=== PATIENT | male | born 1955 | race African-American/Black ===

== ENCOUNTER 2016-12-28 16:34 | Inpatient (IN) | payer MEDICARE, BC ==
[~2016-12-28] VITALS: Ht 180.3 cm; Wt 71.3 kg
[2016-12-28] MEDS ORDERED: ASPIRIN 325 MG TABLET PO ONE (17:15)
[2016-12-28 17:28] LABS: BASO % 1 % (0-3); EOS % 2 % (0-3); HEMATOCRIT 28.3 % (39.0-53.0); HEMOGLOBIN 9.2 g/dL (13.0-17.5); LYMPH # 0.4 x10^3/uL (1.0-4.8); LYMPH % 8 % (24-48); MEAN CORPUSCULAR HEMOGLOBIN 27 pg (25-35); MEAN CORPUSCULAR HGB CONC 33 g/dL (31-37); MEAN CORPUSCULAR VOLUME 83 fL (79-100); MONO % 7 % (0-9); NEUT % 83 % (31-73); PLATELET COUNT 115 x10^3/uL (140-400); RED BLOOD COUNT 3.42 x10^6/uL (4.30-5.70); RED CELL DISTRIBUTION WIDTH 14.8 % (11.5-14.5); WHITE BLOOD COUNT 4.6 x10^3/uL (4.0-11.0)
[2016-12-28] MEDS: NITROGLYCERIN SUBLINGUAL 0.4 MG BOTTLE OF 25. SL PRN ×3 (17:29→18:16)
--- NOTE | 2016-12-28 17:32 | RAD ---
Chest, 2 views, 12/28/2016: History: Chest pain Comparison is made to a study from 08/18/2016. The heart size is normal. There is calcific plaquing of the aorta. The pulmonary vascularity is normal. No pulmonary infiltrates are seen. There is no evidence of pleural fluid. IMPRESSION: 1. Aortic atherosclerosis. 2. No acute cardiopulmonary abnormality is detected.
[2016-12-28 17:34] LABS: CALCIUM 8.3 mg/dL (8.5-10.1); CREATININE 1.5 mg/dL (0.7-1.3); GFR 57.4; POTASSIUM 3.8 mmol/L (3.5-5.1)
[2016-12-28 17:35] LABS: MAGNESIUM 1.7 mg/dL (1.8-2.4)
--- NOTE | 2016-12-28 18:14 | PHYS DOC ---
Past Medical History Past Medical History: Diabetes-Type II, High Cholesterol, Hypertension Past Surgical History: No Surgical History Alcohol Use: None Drug Use: None Adult General Chief Complaint Chief Complaint: CHEST PAIN HPI HPI Patient is a 61 year old male who presents with few days of dry cough and bilateral lower extremity edema, followed by chest tightness with associated dyspnea starting this morning around 10 AM. His chest tightness is central, nonradiating, constant since onset. States he is taking lisinopril BID, but does not follow with a PCP. He or chills, nausea or vomiting, abdominal pain, diarrhea, palpitations, diaphoresis, lightheadedness, dizziness, back pain. Review of Systems Review of Systems Constitutional: Denies fever or chills [] Eyes: Denies change in visual acuity, redness, or eye pain [] HENT: Denies nasal congestion or sore throat [] Respiratory: Has cough and shortness of breath [] Cardiovascular: No additional information not addressed in HPI [] GI: Denies abdominal pain, nausea, vomiting, bloody stools or diarrhea [] : Denies dysuria or hematuria [] Musculoskeletal: Denies back pain or joint pain [] Integument: Denies rash or skin lesions [] Neurologic: Denies headache, focal weakness or sensory changes [] Endocrine: Denies polyuria or polydipsia [] Current Medications Current Medications Current Medications Medications (Trade) Dose Ordered Sig/Jerson Start Time Stop Time Status Last Admin Dose Admin Acetaminophen (Tylenol) 500 mg 1X ONCE 12/28/16 18:15 12/28/16 18:16 DC 12/28/16 18:15 500 MG Aspirin (Fauzia Aspirin) 325 mg 1X ONCE 12/28/16 17:15 12/28/16 17:16 DC 12/28/16 17:28 325 MG Nitroglycerin (Nitrostat) 0.4 mg PRN Q5MIN PRN 12/28/16 17:15 12/29/16 17:14 12/28/16 18:16 0.4 MG Allergies Allergies Allergies Coded Allergies Type Severity Reaction Last Updated Verified No Known Drug Allergies 01/01/16 No Physical Exam Physical Exam Constitutional: Well developed, well nourished, no acute distress, non-toxic appearance. [] HENT: Normocephalic, atraumatic, bilateral external ears normal, oropharynx moist, nose normal. [] Eyes: PERRLA, EOMI. [] Neck: Normal range of motion, supple. [] Cardiovascular:Heart rate regular rhythm [] Lungs & Thorax: Bilateral breath sounds clear to auscultation [] Abdomen: Bowel sounds normal, soft, no tenderness. [] Skin: Warm, dry, no erythema, no rash. [] Back: No tenderness, no CVA tenderness. [] Extremities: No tenderness, ROM intact, bilateral 1+ LE edema. [] Neurologic: Alert and oriented X 3, normal motor function, normal sensory function, no focal deficits noted. [] Psychologic: Affect normal, judgement normal, mood normal. [] Current Patient Data Vital Signs Vital Signs Date Time Temp Pulse Resp B/P Pulse Ox O2 Delivery O2 Flow Rate FiO2 12/28/16 18:16 96 187/93 12/28/16 16:55 98.8 30 99 Room Air 98.8 Lab Values Laboratory Tests Test 12/28/16 16:45 White Blood Count 4.6x10^3/uL (4.0-11.0) Red Blood Count 3.42x10^6/uL (4.30-5.70) L Hemoglobin 9.2g/dL (13.0-17.5) L Hematocrit 28.3% (39.0-53.0) L Mean Corpuscular Volume 83fL (79-100) Mean Corpuscular Hemoglobin 27pg (25-35) Mean Corpuscular Hemoglobin Concent 33g/dL (31-37) Red Cell Distribution Width 14.8% (11.5-14.5) H Platelet Count 115x10^3/uL (140-400) L Neutrophils (%) (Auto) 83% (31-73) H Lymphocytes (%) (Auto) 8% (24-48) L Monocytes (%) (Auto) 7% (0-9) Eosinophils (%) (Auto) 2% (0-3) Basophils (%) (Auto) 1% (0-3) Neutrophils # (Auto) 3.8x10^3uL (1.8-7.7) Lymphocytes # (Auto) 0.4x10^3/uL (1.0-4.8) L Monocytes # (Auto) 0.3x10^3/uL (0.0-1.1) Eosinophils # (Auto) 0.1x10^3/uL (0.0-0.7) Basophils # (Auto) 0.0x10^3/uL (0.0-0.2) Sodium Level 142mmol/L (136-145) Potassium Level 3.8mmol/L (3.5-5.1) Chloride Level 109mmol/L (98-107) H Carbon Dioxide Level 28mmol/L (21-32) Anion Gap 5 (6-14) L Blood Urea Nitrogen 16mg/dL (8-26) Creatinine 1.5mg/dL (0.7-1.3) H Estimated GFR (Cockcroft-Gault) 57.4 Glucose Level 326mg/dL (70-99) H Calcium Level 8.3mg/dL (8.5-10.1) L Magnesium Level 1.7mg/dL (1.8-2.4) L Troponin I Quantitative < 0.017ng/mL (0.000-0.055) OP-Iis-E-Type Natriuretic Peptide 2197pg/mL (0-124) H Laboratory Tests 12/28/16 16:45 Laboratory Tests 12/28/16 16:45 EKG EKG EKG as interpreted by me as normal sinus rhythm, rate 92, no ST-T changes, normal intervals, no ectopy Radiology/Procedures Radiology/Procedures Chest xray as interpreted by me with no acute cardiopulmonary disease process Course & Med Decision Making Course & Med Decision Making Pertinent Labs and Imaging studies reviewed. (See chart for details) History, exam, and workup concerning for congestive heart failure. This is a new diagnosis for him. We will admit for further workup and comorbidity control. Blood pressure is improved with medications here. Discussed case with Dr. Maria, who will admit. Cardiology consultation placed. [place] Disclaimer Dragon Disclaimer This electronic medical record was generated, in whole or in part, using a voice recognition dictation system. Departure Departure Impression: Primary Impression: Acute exacerbation of congestive heart failure Additional Impression: Uncontrolled hypertension Disposition: ADMITTED INPATIENT Condition: STABLE Referrals: NO PCP (PCP) Problem Qualifiers Primary Impression: Acute exacerbation of congestive heart failure Congestive heart failure type: unspecified congestive heart failure type Qualified Code: I50.9 - Heart failure, unspecified Laurita STATON MD Dec 28, 2016 18:14
[2016-12-28] MEDS ORDERED: ACETAMINOPHEN 500 MG TABLET PO ONE (18:15)
--- NOTE | 2016-12-28 18:56 | ACF ---
Admission Forms Criteria HEART FAILURE: COMMON COMPLICATIONS Clinical Indications for Inpatient Care (Place 'X' for any and all applicable criteria): Ongoing inpatient care may be indicated for heart failure with ANY ONE of the following (1)(2)(3)(4)(5): [ ]I. Ongoing need for care for primary condition requiring frequent therapy adjustments because of changes in cardiac function (eg, drug dosage changes for drugs that are renally metabolized) [ ]II. New-onset heart failure [ ]III. Heart failure with decreased urine output not responsive to attempts to optimize volume status [ ]IV. Acute cardiac ischemia causing or associated with failure [X]V. Complications of heart failure, including ANY ONE of the following: [ ]a) Pericardial effusion [ ]b) Symptomatic pleural effusion [ ]c) O2 saturation <90% or PO2 < 60 mm Hg (8.0 kPa) on room air or require baseline supplemental O2 [ ]d) Tachypnea [X]e) Dyspnea [ ]f) Syncope [ ]g) Change in mental status [ ]h) Acute renal insufficiency that is severe (reduction of more than 50% in estimated glomerular filtration rate from baseline) or progressive reduction of more than 25% in estimated glomerular filtration rate from baseline, with creatinine continuing to rise) [ ]i) Hemodynamic instability [ ]j) Anasarca [ ]k) Clinically significant metabolic abnormalities due to heart failure (eg, new-onset metabolic acidosis) Extended stay beyond goal length of stay for primary condition may be needed until ALL of the following are present(1)(3): [ ]a) Stable and effective diuretic regimen established (or patient on stable dialysis regimen if in chronic renal failure) [ ]b) Breathing comfortably at rest [ ]c) Saturation of arterial oxygen greater than 90% or at acceptable baseline [ ]d) Pulmonary edema absent or improved [ ]e) Hemodynamic stability [ ]f) Volume status acceptable on oral medication [ ]g) Peripheral or sacral edema absent or improved [ ]h) Renal function stable and manageable at a lower level of care [ ]i) Complications (eg, pleural effusion) resolved or manageable at a lower level of care [ ]j) Patient or caregiver has received written discharge instructions or educational material addressing activity level, diet, discharge medications, follow-up appointment, weight monitoring, and what to do if symptoms worsen The original [employer] content created by [employer] has been revised. The portions of the content which have been revised are identified through the use of italic text or in bold, and [facility] has neither reviewed nor approved the modified material.All other unmodified content is copyright [facility]. Please see references footnoted in the original [facility] edition 2016 Admission Criteria Met?: Yes ULISES GIBBONS Dec 28, 2016 18:56
[2016-12-28] MEDS ORDERED: METF500T4 PO (19:37)
[2016-12-28] MEDS ORDERED: LISI10TA2 PO (19:37)
[2016-12-28 20:20] VITALS: BP 173/83
[2016-12-28] MEDS ORDERED: MAGNESIUM SULFATE 2GM 50 ML IV ONE (20:30)
[2016-12-28] MEDS ORDERED: LISINOPRIL 10 MG TABLET PO ONE (20:30)
[2016-12-28] MEDS ORDERED: DEXTROSE 50% 25 GM / 50ML DISP.SYRIN. IV PRN (20:30)
[2016-12-28 21:17] LABS: OBC FLU VALID
[2016-12-28] MEDS ORDERED: MORPHINE SULFATE 2 MG/ML DISP.SYRIN. IV PRN ×2 (21:45→22:00)
--- NOTE | 2016-12-28 22:50 | HP ---
ADMIT DATE: 12/28/2016 CHIEF COMPLAINT: Chest pressure. HISTORY OF PRESENT ILLNESS: The patient is a 61-year-old -[place] gentleman who has not seen a physician in several years, who presented to the Emergency Room with chest pressure at the lower end of his sternum. He states this started at about 3:30 today, has not let up yet. It feels like direct pressure at 10/10. The nitroglycerin he received in the Emergency Room seemed to help a little bit. He has not received any morphine or other pain medications and rates it currently at a 7/10. He denies any shortness of breath, diaphoresis or other symptoms accompanying the pressure. He denies any fevers, chills, nausea, vomiting or abdominal pain. In the Emergency Room, initial troponins were negative; however, BNP was significantly elevated with mild swelling in his legs, which apparently has been going on for quite a while. He was diagnosed with new-onset CHF and admitted to the cardiac care unit. PAST MEDICAL HISTORY: Hypertension, hypercholesterolemia, diabetes, sickle cell trait FAMILY HISTORY: Unknown to patient. His mother when he was 7, but he is number 13 of a total of 18 children. SOCIAL HISTORY: He is , living with his , retired from , quit smoking and drinking 35 years ago. No ongoing toxic habits. ALLERGIES: No known drug allergies. MEDICATIONS: MAR reconciled with home medications. REVIEW OF SYSTEMS: Positive as per HPI. All other organ systems were evaluated and found negative. PHYSICAL EXAMINATION: VITAL SIGNS: From today, show a blood pressure of 173/83, heart rate of 90, respiratory rate at 18, temperature at 100.4. GENERAL: This is a well-nourished, well developed 61-year-old -[place] gentleman, alert and oriented, in no acute distress, very pleasant. HEENT: Shows no scleral icterus. NECK: Supple, without any lymphadenopathy. LUNGS: Clear to auscultation bilaterally. CARDIOVASCULAR: Heart is regular rate and rhythm without any murmurs. ABDOMEN: Has positive bowel sounds, soft, nontender. No organomegaly or masses appreciated. EXTREMITIES: Show no edema, no clubbing, no cyanosis. SKIN: Warm, soft and dry without any rash. LABORATORY DATA: CBC with a WBC of 4.6, hemoglobin 9.2, MCV of 83, platelets of 115. Chemistries with a BUN and creatinine of 16 and 1.5. Electrolytes essentially within normal limits. Glucose at 326, calcium 8.3, magnesium at 1.7. Initial troponin negative. Pro-BNP 2197. H. flu serologies are negative. RADIOGRAPHIC IMAGING: Chest x-ray in the Emergency Room shows aortic atherosclerosis, no acute cardiopulmonary abnormality is detected. ASSESSMENT AND PLAN: The patient is a 61-year-old -[place] gentleman presenting with chest pressure, elevated BNP and mild lower extremity edema, suspicious for congestive heart failure. He will be ruled out for acute coronary syndrome. We will obtain echocardiogram and cardiac service consult for further evaluation. The patient does have significant hypertension for which he has been on lisinopril at home. This will be continued, clearly will need increase in dose. We will add hydralazine p.r.n. IV for now. Diabetes is unfortunately very poorly controlled as well. He is only on metformin at home. We will hold this medication for the time being in anticipation of further evaluations. Add insulin sliding scale. Consider switching to insulin for the next month or so. He is scheduled to meet his first PCP in several years, early next month. We will also add a hemoglobin A1c for evaluation of his glucose control. For further cardiac risk factor evaluation, we will obtain a lipid profile as well. Consider starting statin depending on results. The patient has a normocytic anemia, which is moderate, more than typical for sickle cell trait. Will evaluate with anemia profile to rule out vitamin deficiency. This may be chronic inflammation, potentially due to congestive heart failure. However, the patient is also thrombocytopenic. We will monitor for now. If persistent and no abnormalities found on anemia profile, we will obtain a Hematology consult. IFEANYI HOLLAND MD DR: ELAYNE/nts JOB#: [id number] / [id number] KAREN
[2016-12-28 23:10] VITALS: BP 186/95
[2016-12-28] MEDS: INSULIN ASPART 300 UNITS/3 ML INSULN.PEN SQ SCH (23:37)
[2016-12-29] VITALS (10 sets, daily range): BP systolic 146–195; BP diastolic 67–96
[2016-12-29 03:48] LABS: BASO % 0 % (0-3); EOS % 1 % (0-3); HEMATOCRIT 24.4 % (39.0-53.0); HEMOGLOBIN 7.9 g/dL (13.0-17.5); LYMPH # 0.3 x10^3/uL (1.0-4.8); LYMPH % 8 % (24-48); MEAN CORPUSCULAR HEMOGLOBIN 27 pg (25-35); MEAN CORPUSCULAR HGB CONC 32 g/dL (31-37); MEAN CORPUSCULAR VOLUME 83 fL (79-100); MONO % 9 % (0-9); NEUT % 82 % (31-73); PLATELET COUNT 101 x10^3/uL (140-400); RED BLOOD COUNT 2.93 x10^6/uL (4.30-5.70); RED CELL DISTRIBUTION WIDTH 14.6 % (11.5-14.5); WHITE BLOOD COUNT 3.4 x10^3/uL (4.0-11.0)
[2016-12-29] MEDS: hydrALAZINE 20 MG/ML VIAL. IVP PRN ×2 (03:54→20:31)
[2016-12-29 04:07] LABS: % SAT IRON 12 % (15-34); IRON,SERUM 16 ug/dL (65-175); RETIC COUNT 0.5 % (0.5-2.5)
[2016-12-29 04:20] LABS: ALBUMIN 2.2 g/dL (3.4-5.0); ALBUMIN/GLOBULIN RATIO 0.9 (1.0-1.7); CALCIUM 7.9 mg/dL (8.5-10.1); CREATININE 1.6 mg/dL (0.7-1.3); GFR 53.3; MAGNESIUM 2.4 mg/dL (1.8-2.4); POTASSIUM 3.9 mmol/L (3.5-5.1); TOTAL BILIRUBIN 0.3 mg/dL (0.2-1.0); TOTAL PROTEIN 4.7 g/dL (6.4-8.2)
[2016-12-29 04:34] LABS: CHOLESTEROL/HDL RATIO 2.2
[2016-12-29] MEDS ORDERED: PNEUMOCOCCAL VAX SCREEN BY RX. MC PRN (04:45)
[2016-12-29] MEDS ORDERED: INFLUENZA VAX SCREEN BY RX. MC PRN (04:45)
--- NOTE | 2016-12-29 06:33 | EKG ---
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
[2016-12-29] MEDS ORDERED: INSULIN ASPART 300 UNITS/3 ML INSULN.PEN SQ SCH (08:00)
[2016-12-29 08:30] LABS: FOLATE 4.75 ng/ml (3.2-20.0)
[2016-12-29] MEDS ORDERED: LISINOPRIL 10 MG TABLET PO SCH (09:00)
[2016-12-29] MEDS ORDERED: PNEUMOC CONJ VACC 23-VALENT 0.5 ML VIAL. VAX IM ONE (09:00)
[2016-12-29] MEDS ORDERED: FLU VACC QUAD 2016-17 (36MOS+)/PF 0.5 ML SYRINGE. VAX IM ONE (09:00)
--- NOTE | 2016-12-29 09:14 | PDOC2 ---
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 Maria SOURCE Source: Chart review, Patient HISTORY OF PRESENT ILLNESS HISTORY OF PRESENT ILLNESS This is a 61 yo male who presented with multiple complaints including chest tightness, cough, fatigue, and chills. Patient reports pain began yesterday morning upon awakening. Located in his central chest. Describes as pressure. Radiated to his left arm. Pain lasted a couple of hours and resolved without intervention. History of diabetes and hypertension. Is non-complaint with insulin and antiHTN therapy. Checks BS every couple of days. BP significantly elevated upon admission. Takes lisinopril 4-5 days out of the week. Denies any CKD but follow with Dr. Koo on an outpatient basis. PAST MEDICAL HISTORY Cardiovascular: HTN, Hyperlipidemia Pulmonary: No pertinent hx CENTRAL NERVOUS SYSTEM: Other (no pertinent hx) GI: No pertinent hx Heme/Onc: Anemia NOS Hepatobiliary: No pertinent hx Psych: No pertinent hx Musculoskeletal: Other (no pertinent hx) Rheumatologic: No pertinent hx Infectious disease: No pertinent hx ENT: No pertinent hx Renal/: Chronic renal insuff Endocrine: Diabetes Dermatology: No pertinent hx PAST SURGICAL HISTORY Past Surgical History: No pertinent history FAMILY HISTORY Family History: Family History Unknown SOCIAL HISTORY Lives: with Family CURRENT MEDICATIONS CURRENT MEDICATIONS Current Medications Medications (Trade) Dose Ordered Sig/Jerson Route PRN Reason Start Time Stop Time Status Last Admin Dose Admin Aspirin (Fauzia Aspirin) 325 mg 1X ONCE PO 12/28/16 17:15 12/28/16 17:16 DC 12/28/16 17:28 Nitroglycerin (Nitrostat) 0.4 mg PRN Q5MIN PRN SL CP RATING > 1/10 12/28/16 17:15 12/29/16 17:14 12/28/16 18:16 Acetaminophen 500 mg 500 mg 1X ONCE PO 12/28/16 18:15 12/28/16 18:16 DC 12/28/16 18:15 Magnesium Sulfate/ Dextrose (Magnesium Sulfate PREMIX 2GM) 50 ml @ 25 mls/hr 1X ONCE IV 12/28/16 20:30 12/28/16 22:29 DC 3/29/17 23:12 Lisinopril (Prinivil) 10 mg 1X ONCE PO 12/28/16 20:30 12/28/16 20:33 DC 12/28/16 22:38 Morphine Sulfate 1 mg PRN Q2HR PRN IV MODERATE PAIN 12/28/16 21:45 12/28/16 22:38 Hydralazine HCl (Apresoline) 10 mg PRN Q4HRS PRN IVP ELEVATED BP, SEE COMMENTS 12/28/16 22:00 12/29/16 03:54 Insulin Aspart (Novolog) 0-5 UNITS TIDWMEALS SQ 12/28/16 23:30 12/28/16 23:37 ALLERGIES ALLERGIES: Coded Allergies: No Known Drug Allergies (Unverified , 01/01/16) ROS Review of System 14 point ROS conducted with pertinent positives noted above in HPI. PHYSICAL EXAM General: Alert, Oriented X3, Cooperative, No acute distress HEENT: Atraumatic, Mucous membr. moist/pink Lungs: Clear to auscultation, Normal air movement Heart: Regular rate, Normal S1, Normal S2, Other (tele ST rate 102) Abdomen: Soft, No tenderness Extremities: No edema, Normal pulses Skin: No significant lesion Neuro: Normal speech, Sensation intact Psych/Mental Status: Mental status NL, Mood NL, Other (flat affect ) VITALS VITALS Vital Signs Date Time Temp Pulse Resp B/P Pulse Ox O2 Delivery O2 Flow Rate FiO2 12/29/16 07:00 100.2 104 18 164/79 92 Room Air 100.2 LABS Lab: Laboratory Tests Test 12/28/16 16:45 12/28/16 20:30 12/29/16 03:18 12/29/16 08:39 White Blood Count 4.6x10^3/uL (4.0-11.0) 3.4x10^3/uL (4.0-11.0) Red Blood Count 3.42x10^6/uL (4.30-5.70) 2.93x10^6/uL (4.30-5.70) Hemoglobin 9.2g/dL (13.0-17.5) 7.9g/dL (13.0-17.5) Hematocrit 28.3% (39.0-53.0) 24.4% (39.0-53.0) Mean Corpuscular Volume 83fL (79-100) 83fL (79-100) Mean Corpuscular Hemoglobin 27pg (25-35) 27pg (25-35) Mean Corpuscular Hemoglobin Concent 33g/dL (31-37) 32g/dL (31-37) Red Cell Distribution Width 14.8% (11.5-14.5) 14.6% (11.5-14.5) Platelet Count 115x10^3/uL (140-400) 101x10^3/uL (140-400) Neutrophils (%) (Auto) 83% (31-73) 82% (31-73) Lymphocytes (%) (Auto) 8% (24-48) 8% (24-48) Monocytes (%) (Auto) 7% (0-9) 9% (0-9) Eosinophils (%) (Auto) 2% (0-3) 1% (0-3) Basophils (%) (Auto) 1% (0-3) 0% (0-3) Neutrophils # (Auto) 3.8x10^3uL (1.8-7.7) 2.8x10^3uL (1.8-7.7) Lymphocytes # (Auto) 0.4x10^3/uL (1.0-4.8) 0.3x10^3/uL (1.0-4.8) Monocytes # (Auto) 0.3x10^3/uL (0.0-1.1) 0.3x10^3/uL (0.0-1.1) Eosinophils # (Auto) 0.1x10^3/uL (0.0-0.7) 0.0x10^3/uL (0.0-0.7) Basophils # (Auto) 0.0x10^3/uL (0.0-0.2) 0.0x10^3/uL (0.0-0.2) Sodium Level 142mmol/L (136-145) 148mmol/L (136-145) Potassium Level 3.8mmol/L (3.5-5.1) 3.9mmol/L (3.5-5.1) Chloride Level 109mmol/L (98-107) 113mmol/L (98-107) Carbon Dioxide Level 28mmol/L (21-32) 29mmol/L (21-32) Anion Gap 5 (6-14) 6 (6-14) Blood Urea Nitrogen 16mg/dL (8-26) 18mg/dL (8-26) Creatinine 1.5mg/dL (0.7-1.3) 1.6mg/dL (0.7-1.3) Estimated GFR (Cockcroft-Gault) 57.4 53.3 Glucose Level 326mg/dL (70-99) 242mg/dL (70-99) Calcium Level 8.3mg/dL (8.5-10.1) 7.9mg/dL (8.5-10.1) Magnesium Level 1.7mg/dL (1.8-2.4) 2.4mg/dL (1.8-2.4) Troponin I Quantitative < 0.017ng/mL (0.000-0.055) 0.019ng/mL (0.000-0.055) GN-Vfx-V-Type Natriuretic Peptide 2197pg/mL (0-124) Influenza Type A Antigen Negative (NEGATIVE) Influenza Type B Antigen Negative (NEGATIVE) Reticulocyte Count (auto) 0.5% (0.5-2.5) BUN/Creatinine Ratio 11 (6-20) Iron Level 16ug/dL (65-175) Total Iron Binding Capacity 134ug/dL (250-450) Iron Saturation 12% (15-34) Ferritin 182ng/mL (26-388) Total Bilirubin 0.3mg/dL (0.2-1.0) Aspartate Amino Transf (AST/SGOT) 21U/L (15-37) Alanine Aminotransferase (ALT/SGPT) 25U/L (16-63) Alkaline Phosphatase 91U/L (46-116) Total Protein 4.7g/dL (6.4-8.2) Albumin 2.2g/dL (3.4-5.0) Albumin/Globulin Ratio 0.9 (1.0-1.7) Triglycerides Level 87mg/dL (0-150) Cholesterol Level 159mg/dL (0-200) LDL Cholesterol, Calculated 70mg/dL (0-100) VLDL Cholesterol, Calculated 17mg/dL (0-40) HDL Cholesterol 72mg/dL (40-60) Cholesterol/HDL Ratio 2.2 Vitamin B12 Level 420pg/mL (247-911) Serum Folate 4.75ng/ml (3.2-20.0) Thyroid Stimulating Hormone (TSH) 0.409uIU/mL (0.358-3.74) Glucose (Fingerstick) 296mg/dL (70-99) ASSESSMENT/PLAN ASSESSMENT/PLAN 1. Mild acute probable diastolic HF 2. Chest pain/pressure 3. Malignant hypertension 4. Hyperlipidemia 6. Diabetes, II 7. CKD 8. Anemia 9. Fevers 10. Noncompliance Recommendations Check echo to assess LV function and r/o presence of WMA Chest pressure likely secondary to malignant HTN; maintain BP control AMI ruled out- given risk factors, consider outpatient stress test No diuresis warranted at this time. Discussed importance of medication adherence and overall compliance Management of CKD per nephrology. Further workup of fevers and anemia per PCP Problems: TAQUERIA CONWAY MD 12/30/16 0730: CARDIAC CONSULT ALLERGIES ALLERGIES: Coded Allergies: No Known Drug Allergies (Unverified , 01/01/16) ASSESSMENT/PLAN ASSESSMENT/PLAN Late entry for 12/29/2016 Pt. seen and examined. 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 61 y.o male presenting with malignant HTN Normal cardiac exam echo with LVH, otherwise ok Will follow. BP mgmt. Problems: NANDA TREVINO APRN Dec 29, 2016 09:14 TAQUERIA CONWAY MD Dec 30, 2016 07:30
[2016-12-29] MEDS: ASPIRIN ENTERIC COATED 81 MG TABLET.DR. PO SCH (09:55)
[2016-12-29] MEDS: INSULIN ASPART 300 UNITS/3 ML INSULN.PEN SQ SCH ×3 (10:01→17:00)
--- NOTE | 2016-12-29 10:31 | PDOC ---
PROGRESS NOTES Chief Complaint Chief Complaint Chest pain New onset CHF DOMINIQUE vs CRI HTN Diabetes, non-controlled Chronic Anemia Hypercholesterolemia History of Present Illness History of Present Illness No acute events overnight. Patient is seen following his echo. He reports that he is feeling slightly better. Vitals Vitals Vital Signs Date Time Temp Pulse Resp B/P Pulse Ox O2 Delivery O2 Flow Rate FiO2 12/29/16 09:55 104 164/79 12/29/16 07:00 100.2 18 92 Room Air 100.2 Physical Exam General: Alert, Oriented X3, Cooperative, No acute distress Heart: Regular rate, No murmurs Lungs: Clear, Other (no wheezing) Abdomen: Soft, No tenderness Extremities: No cyanosis, Other (bl LE edema ) Skin: No rashes, No significant lesion Labs LABS Laboratory Tests Test 12/28/16 16:45 12/28/16 20:30 12/29/16 03:18 12/29/16 08:39 White Blood Count 4.6x10^3/uL (4.0-11.0) 3.4x10^3/uL (4.0-11.0) Red Blood Count 3.42x10^6/uL (4.30-5.70) 2.93x10^6/uL (4.30-5.70) Hemoglobin 9.2g/dL (13.0-17.5) 7.9g/dL (13.0-17.5) Hematocrit 28.3% (39.0-53.0) 24.4% (39.0-53.0) Mean Corpuscular Volume 83fL (79-100) 83fL (79-100) Mean Corpuscular Hemoglobin 27pg (25-35) 27pg (25-35) Mean Corpuscular Hemoglobin Concent 33g/dL (31-37) 32g/dL (31-37) Red Cell Distribution Width 14.8% (11.5-14.5) 14.6% (11.5-14.5) Platelet Count 115x10^3/uL (140-400) 101x10^3/uL (140-400) Neutrophils (%) (Auto) 83% (31-73) 82% (31-73) Lymphocytes (%) (Auto) 8% (24-48) 8% (24-48) Monocytes (%) (Auto) 7% (0-9) 9% (0-9) Eosinophils (%) (Auto) 2% (0-3) 1% (0-3) Basophils (%) (Auto) 1% (0-3) 0% (0-3) Neutrophils # (Auto) 3.8x10^3uL (1.8-7.7) 2.8x10^3uL (1.8-7.7) Lymphocytes # (Auto) 0.4x10^3/uL (1.0-4.8) 0.3x10^3/uL (1.0-4.8) Monocytes # (Auto) 0.3x10^3/uL (0.0-1.1) 0.3x10^3/uL (0.0-1.1) Eosinophils # (Auto) 0.1x10^3/uL (0.0-0.7) 0.0x10^3/uL (0.0-0.7) Basophils # (Auto) 0.0x10^3/uL (0.0-0.2) 0.0x10^3/uL (0.0-0.2) Sodium Level 142mmol/L (136-145) 148mmol/L (136-145) Potassium Level 3.8mmol/L (3.5-5.1) 3.9mmol/L (3.5-5.1) Chloride Level 109mmol/L (98-107) 113mmol/L (98-107) Carbon Dioxide Level 28mmol/L (21-32) 29mmol/L (21-32) Anion Gap 5 (6-14) 6 (6-14) Blood Urea Nitrogen 16mg/dL (8-26) 18mg/dL (8-26) Creatinine 1.5mg/dL (0.7-1.3) 1.6mg/dL (0.7-1.3) Estimated GFR (Cockcroft-Gault) 57.4 53.3 Glucose Level 326mg/dL (70-99) 242mg/dL (70-99) Calcium Level 8.3mg/dL (8.5-10.1) 7.9mg/dL (8.5-10.1) Magnesium Level 1.7mg/dL (1.8-2.4) 2.4mg/dL (1.8-2.4) Troponin I Quantitative < 0.017ng/mL (0.000-0.055) 0.019ng/mL (0.000-0.055) YE-Aoa-L-Type Natriuretic Peptide 2197pg/mL (0-124) Influenza Type A Antigen Negative (NEGATIVE) Influenza Type B Antigen Negative (NEGATIVE) Reticulocyte Count (auto) 0.5% (0.5-2.5) BUN/Creatinine Ratio 11 (6-20) Iron Level 16ug/dL (65-175) Total Iron Binding Capacity 134ug/dL (250-450) Iron Saturation 12% (15-34) Ferritin 182ng/mL (26-388) Total Bilirubin 0.3mg/dL (0.2-1.0) Aspartate Amino Transf (AST/SGOT) 21U/L (15-37) Alanine Aminotransferase (ALT/SGPT) 25U/L (16-63) Alkaline Phosphatase 91U/L (46-116) Total Protein 4.7g/dL (6.4-8.2) Albumin 2.2g/dL (3.4-5.0) Albumin/Globulin Ratio 0.9 (1.0-1.7) Triglycerides Level 87mg/dL (0-150) Cholesterol Level 159mg/dL (0-200) LDL Cholesterol, Calculated 70mg/dL (0-100) VLDL Cholesterol, Calculated 17mg/dL (0-40) HDL Cholesterol 72mg/dL (40-60) Cholesterol/HDL Ratio 2.2 Vitamin B12 Level 420pg/mL (247-911) Serum Folate 4.75ng/ml (3.2-20.0) Thyroid Stimulating Hormone (TSH) 0.409uIU/mL (0.358-3.74) Glucose (Fingerstick) 296mg/dL (70-99) Review of Systems Review of Systems Denies current chest pain and shortness of breath. Afebrile. Reports he is feeling better. Assessment and Plan Assessmemt and Plan Problems Medical Problems: (1) Acute exacerbation of congestive heart failure Status: Acute (2) Uncontrolled hypertension Status: Acute ASSESSMENT: Chest pain New onset CHF DOMINIQUE vs CRI HTN Diabetes, non-controlled Chronic Anemia Hypercholesterolemia PLAN: Renal was consulted for DOMINIQUE vs CRI, their recommendations are appreciated Cardiology is following, their recommendations are appreciated Cardiac workup in progress Trend troponins Monitor blood glucose Continue pain control Monitor daily labs PT/OT Problems: Comment Review of Relevant I have reviewed the following items griselda (where applicable) has been applied. Labs Laboratory Tests Test 12/28/16 16:45 12/28/16 20:30 12/29/16 03:18 12/29/16 08:39 White Blood Count 4.6x10^3/uL (4.0-11.0) 3.4x10^3/uL (4.0-11.0) Red Blood Count 3.42x10^6/uL (4.30-5.70) 2.93x10^6/uL (4.30-5.70) Hemoglobin 9.2g/dL (13.0-17.5) 7.9g/dL (13.0-17.5) Hematocrit 28.3% (39.0-53.0) 24.4% (39.0-53.0) Mean Corpuscular Volume 83fL (79-100) 83fL (79-100) Mean Corpuscular Hemoglobin 27pg (25-35) 27pg (25-35) Mean Corpuscular Hemoglobin Concent 33g/dL (31-37) 32g/dL (31-37) Red Cell Distribution Width 14.8% (11.5-14.5) 14.6% (11.5-14.5) Platelet Count 115x10^3/uL (140-400) 101x10^3/uL (140-400) Neutrophils (%) (Auto) 83% (31-73) 82% (31-73) Lymphocytes (%) (Auto) 8% (24-48) 8% (24-48) Monocytes (%) (Auto) 7% (0-9) 9% (0-9) Eosinophils (%) (Auto) 2% (0-3) 1% (0-3) Basophils (%) (Auto) 1% (0-3) 0% (0-3) Neutrophils # (Auto) 3.8x10^3uL (1.8-7.7) 2.8x10^3uL (1.8-7.7) Lymphocytes # (Auto) 0.4x10^3/uL (1.0-4.8) 0.3x10^3/uL (1.0-4.8) Monocytes # (Auto) 0.3x10^3/uL (0.0-1.1) 0.3x10^3/uL (0.0-1.1) Eosinophils # (Auto) 0.1x10^3/uL (0.0-0.7) 0.0x10^3/uL (0.0-0.7) Basophils # (Auto) 0.0x10^3/uL (0.0-0.2) 0.0x10^3/uL (0.0-0.2) Sodium Level 142mmol/L (136-145) 148mmol/L (136-145) Potassium Level 3.8mmol/L (3.5-5.1) 3.9mmol/L (3.5-5.1) Chloride Level 109mmol/L (98-107) 113mmol/L (98-107) Carbon Dioxide Level 28mmol/L (21-32) 29mmol/L (21-32) Anion Gap 5 (6-14) 6 (6-14) Blood Urea Nitrogen 16mg/dL (8-26) 18mg/dL (8-26) Creatinine 1.5mg/dL (0.7-1.3) 1.6mg/dL (0.7-1.3) Estimated GFR (Cockcroft-Gault) 57.4 53.3 Glucose Level 326mg/dL (70-99) 242mg/dL (70-99) Calcium Level 8.3mg/dL (8.5-10.1) 7.9mg/dL (8.5-10.1) Magnesium Level 1.7mg/dL (1.8-2.4) 2.4mg/dL (1.8-2.4) Troponin I Quantitative < 0.017ng/mL (0.000-0.055) 0.019ng/mL (0.000-0.055) US-Hjn-N-Type Natriuretic Peptide 2197pg/mL (0-124) Influenza Type A Antigen Negative (NEGATIVE) Influenza Type B Antigen Negative (NEGATIVE) Reticulocyte Count (auto) 0.5% (0.5-2.5) BUN/Creatinine Ratio 11 (6-20) Iron Level 16ug/dL (65-175) Total Iron Binding Capacity 134ug/dL (250-450) Iron Saturation 12% (15-34) Ferritin 182ng/mL (26-388) Total Bilirubin 0.3mg/dL (0.2-1.0) Aspartate Amino Transf (AST/SGOT) 21U/L (15-37) Alanine Aminotransferase (ALT/SGPT) 25U/L (16-63) Alkaline Phosphatase 91U/L (46-116) Total Protein 4.7g/dL (6.4-8.2) Albumin 2.2g/dL (3.4-5.0) Albumin/Globulin Ratio 0.9 (1.0-1.7) Triglycerides Level 87mg/dL (0-150) Cholesterol Level 159mg/dL (0-200) LDL Cholesterol, Calculated 70mg/dL (0-100) VLDL Cholesterol, Calculated 17mg/dL (0-40) HDL Cholesterol 72mg/dL (40-60) Cholesterol/HDL Ratio 2.2 Vitamin B12 Level 420pg/mL (247-911) Serum Folate 4.75ng/ml (3.2-20.0) Thyroid Stimulating Hormone (TSH) 0.409uIU/mL (0.358-3.74) Glucose (Fingerstick) 296mg/dL (70-99) Laboratory Tests Test 12/28/16 16:45 12/28/16 20:30 12/29/16 03:18 12/29/16 08:39 White Blood Count 4.6x10^3/uL (4.0-11.0) 3.4x10^3/uL (4.0-11.0) Red Blood Count 3.42x10^6/uL (4.30-5.70) 2.93x10^6/uL (4.30-5.70) Hemoglobin 9.2g/dL (13.0-17.5) 7.9g/dL (13.0-17.5) Hematocrit 28.3% (39.0-53.0) 24.4% (39.0-53.0) Mean Corpuscular Volume 83fL (79-100) 83fL (79-100) Mean Corpuscular Hemoglobin 27pg (25-35) 27pg (25-35) Mean Corpuscular Hemoglobin Concent 33g/dL (31-37) 32g/dL (31-37) Red Cell Distribution Width 14.8% (11.5-14.5) 14.6% (11.5-14.5) Platelet Count 115x10^3/uL (140-400) 101x10^3/uL (140-400) Neutrophils (%) (Auto) 83% (31-73) 82% (31-73) Lymphocytes (%) (Auto) 8% (24-48) 8% (24-48) Monocytes (%) (Auto) 7% (0-9) 9% (0-9) Eosinophils (%) (Auto) 2% (0-3) 1% (0-3) Basophils (%) (Auto) 1% (0-3) 0% (0-3) Neutrophils # (Auto) 3.8x10^3uL (1.8-7.7) 2.8x10^3uL (1.8-7.7) Lymphocytes # (Auto) 0.4x10^3/uL (1.0-4.8) 0.3x10^3/uL (1.0-4.8) Monocytes # (Auto) 0.3x10^3/uL (0.0-1.1) 0.3x10^3/uL (0.0-1.1) Eosinophils # (Auto) 0.1x10^3/uL (0.0-0.7) 0.0x10^3/uL (0.0-0.7) Basophils # (Auto) 0.0x10^3/uL (0.0-0.2) 0.0x10^3/uL (0.0-0.2) Sodium Level 142mmol/L (136-145) 148mmol/L (136-145) Potassium Level 3.8mmol/L (3.5-5.1) 3.9mmol/L (3.5-5.1) Chloride Level 109mmol/L (98-107) 113mmol/L (98-107) Carbon Dioxide Level 28mmol/L (21-32) 29mmol/L (21-32) Anion Gap 5 (6-14) 6 (6-14) Blood Urea Nitrogen 16mg/dL (8-26) 18mg/dL (8-26) Creatinine 1.5mg/dL (0.7-1.3) 1.6mg/dL (0.7-1.3) Estimated GFR (Cockcroft-Gault) 57.4 53.3 Glucose Level 326mg/dL (70-99) 242mg/dL (70-99) Calcium Level 8.3mg/dL (8.5-10.1) 7.9mg/dL (8.5-10.1) Magnesium Level 1.7mg/dL (1.8-2.4) 2.4mg/dL (1.8-2.4) Troponin I Quantitative < 0.017ng/mL (0.000-0.055) 0.019ng/mL (0.000-0.055) ND-Kdf-H-Type Natriuretic Peptide 2197pg/mL (0-124) Influenza Type A Antigen Negative (NEGATIVE) Influenza Type B Antigen Negative (NEGATIVE) Reticulocyte Count (auto) 0.5% (0.5-2.5) BUN/Creatinine Ratio 11 (6-20) Iron Level 16ug/dL (65-175) Total Iron Binding Capacity 134ug/dL (250-450) Iron Saturation 12% (15-34) Ferritin 182ng/mL (26-388) Total Bilirubin 0.3mg/dL (0.2-1.0) Aspartate Amino Transf (AST/SGOT) 21U/L (15-37) Alanine Aminotransferase (ALT/SGPT) 25U/L (16-63) Alkaline Phosphatase 91U/L (46-116) Total Protein 4.7g/dL (6.4-8.2) Albumin 2.2g/dL (3.4-5.0) Albumin/Globulin Ratio 0.9 (1.0-1.7) Triglycerides Level 87mg/dL (0-150) Cholesterol Level 159mg/dL (0-200) LDL Cholesterol, Calculated 70mg/dL (0-100) VLDL Cholesterol, Calculated 17mg/dL (0-40) HDL Cholesterol 72mg/dL (40-60) Cholesterol/HDL Ratio 2.2 Vitamin B12 Level 420pg/mL (247-911) Serum Folate 4.75ng/ml (3.2-20.0) Thyroid Stimulating Hormone (TSH) 0.409uIU/mL (0.358-3.74) Glucose (Fingerstick) 296mg/dL (70-99) Medications Current Medications Aspirin (Fauzia Aspirin) 325 mg 1X ONCE PO Last administered on 12/28/16 17:28 ; Start 12/28/16 at 17:15; Stop 12/28/16 at 17:16; Status DC Nitroglycerin (Nitrostat) 0.4 mg PRN Q5MIN PRN SL CP RATING > 1/10 Last administered on 12/28/16 18:16; Start 12/28/16 at 17:15; Stop 12/29/16 at 17:14 Acetaminophen 500 mg 500 mg 1X ONCE PO Last administered on 12/28/16 18:15; Start 12/28/16 at 18:15; Stop 12/28/16 at 18:16; Status DC Magnesium Sulfate/ Dextrose (Magnesium Sulfate PREMIX 2GM) 50 ml @ 25 mls/hr 1X ONCE IV Last administered on 12/28/16 23:12; Start 12/28/16 at 20:30; Stop 12/28/16 at 22:29; Status DC Insulin Aspart (Novolog) 0-5 UNITS TIDWMEALS SQ ; Start 12/29/16 at 08:00; Stop 12/29/16 at 08:00; Status DC Dextrose 12.5 gm PRN Q15MIN PRN IV SEE COMMENTS; Start 12/28/16 at 20:30 Lisinopril (Prinivil) 10 mg DAILY PO Last administered on 12/29/16 09:55; Start 12/29/16 at 09:00 Lisinopril (Prinivil) 10 mg 1X ONCE PO Last administered on 12/28/16 22:38; Start 12/28/16 at 20:30; Stop 12/28/16 at 20:33; Status DC Morphine Sulfate 1 mg PRN Q2HR PRN IV MODERATE PAIN Last administered on 22:38; Start 12/28/16 at 21:45 Acetaminophen (Tylenol) 500 mg PRN Q6HRS PRN PO MILD PAIN / TEMP; Start at 21:45 Aspirin (Ecotrin) 81 mg DAILYWBKFT PO Last administered on 12/29/16 09:55; Start 12/29/16 at 08:00 Morphine Sulfate 2 mg PRN Q2HR PRN IV SEVERE PAIN; Start 12/28/16 at 22:00 Hydralazine HCl (Apresoline) 10 mg PRN Q4HRS PRN IVP ELEVATED BP, SEE COMMENTS Last administered on 12/29/16 03:54; Start 12/28/16 at 22:00 Insulin Aspart (Novolog) 0-5 UNITS TIDWMEALS SQ Last administered on 12/29/16 10:01; Start 12/28/16 at 23:30 Info (Do NOT chart on this placeholder) 1 each PRN 1X PRN MC SEE COMMENTS; Start 12/29/16 at 04:45; Status UNV Pneumococcal Polyvalent Vaccine (Do NOT chart on this placeholder) 1 each PRN 1X PRN MC SEE COMMENTS; Start 12/29/16 at 04:45; Status UNV Influenza Virus Vaccine Quadrival (Fluarix Quad [id number] Syringe) 0.5 ml ONCE ONCE VAX IM ; Start 12/29/16 at 09:00; Stop 12/29/16 at 09:01; Status DC Pneumococcal Polyvalent Vaccine (Pneumovax 23) 0.5 ml ONCE ONCE VAX IM ; Start 12/29/16 at 09:00; Stop 12/29/16 at 09:01; Status DC Active Scripts Active Reported Lisinopril 10 Mg Tablet 10 Mg PO DAILY Metformin Hcl 500 Mg Tablet 1 Tab PO BID Vitals/I & O Vital Sign - Last 24 Hours 12/28/16 12/28/16 12/28/16 12/28/16 16:40 16:55 17:10 17:25 Temp 98.8 98.8 Pulse 92 92 Resp 14 30 19 B/P 226/106 226/106 204/97 207/101 Pulse Ox 99 99 O2 Delivery Room Air Room Air 12/28/16 12/28/16 12/28/16 12/28/16 17:26 17:29 17:43 17:56 Pulse 98 97 98 96 Resp 27 12 B/P 204/109 204/109 204/109 187/93 Pulse Ox 97 97 12/28/16 12/28/16 12/28/16 12/28/16 18:16 18:26 20:20 22:38 Temp 100.4 100.4 Pulse 96 100 90 90 Resp 16 18 B/P 187/93 178/82 173/83 173/83 Pulse Ox 97 99 O2 Delivery Room Air 12/28/16 12/28/16 12/28/16 12/29/16 22:38 23:10 23:10 02:50 Temp 98.5 98.5 Pulse 90 Resp 18 16 14 B/P 186/95 Pulse Ox 99 97 95 O2 Delivery Room Air Room Air Room Air 12/29/16 12/29/16 12/29/16 12/29/16 03:10 03:54 05:10 07:00 Temp 98.8 100.2 98.8 100.2 Pulse 90 90 100 104 Resp 14 18 B/P 172/77 172/77 156/67 164/79 Pulse Ox 96 92 O2 Delivery Room Air Room Air Room Air 12/29/16 09:55 Pulse 104 B/P 164/79 Intake and Output 12/28/16 12/28/16 12/29/16 15:00 23:00 07:00 Intake Total 240 ml 50 ml Output Total 0 ml Balance 240 ml 50 ml APPLENIAL K III DO Dec 29, 2016 10:31
[2016-12-29] MEDS: ACETAMINOPHEN 500 MG TABLET PO PRN ×2 (10:59→23:11)
--- NOTE | 2016-12-29 11:18 | PDOC2 ---
CONSULT Date of Consult Date of Consult DATE: 12/29/16 TIME: 11:12 Reason for Consult Reason for Consult: RENAL FAILURE Referring Physician Referring Physician: FREDDY Identification/Chief Complaint Chief Complaint CHEST PAIN Source Source: Chart review, Patient History of Present Illness Reason for Visit: THIS IS A 61 YR OLD ADMITTED WITH CHEST PAIN AND SOB. HIS BNP LEVEL IS HIGH BUT ON EXAM AND ON CXRAY THERE IS NO EVIDENCE OF HYPERVOLEMIA. CR IS 1.5-1.6. LAST YEAR CR WAS ABOUT 1.3. HE HAS A HX OF HTN AND DM II AND HAS BEEN NON COMPLIANT Past Medical History Cardiovascular: HTN, Hyperlipidemia Heme/Onc: Anemia NOS Renal/: Chronic renal insuff Endocrine: Diabetes Current Problem List Problem List Problems Medical Problems: (1) Acute exacerbation of congestive heart failure Status: Acute (2) Uncontrolled hypertension Status: Acute Current Medications Current Medications Current Medications Aspirin (Fauzia Aspirin) 325 mg 1X ONCE PO Last administered on 12/28/16 17:28 ; Start 12/28/16 at 17:15; Stop 12/28/16 at 17:16; Status DC Nitroglycerin (Nitrostat) 0.4 mg PRN Q5MIN PRN SL CP RATING > 1/10 Last administered on 12/28/16 18:16; Start 12/28/16 at 17:15; Stop 12/29/16 at 17:14 Acetaminophen 500 mg 500 mg 1X ONCE PO Last administered on 12/28/16 18:15; Start 12/28/16 at 18:15; Stop 12/28/16 at 18:16; Status DC Magnesium Sulfate/ Dextrose (Magnesium Sulfate PREMIX 2GM) 50 ml @ 25 mls/hr 1X ONCE IV Last administered on 12/28/16 23:12; Start 12/28/16 at 20:30; Stop 12/28/16 at 22:29; Status DC Insulin Aspart (Novolog) 0-5 UNITS TIDWMEALS SQ ; Start 12/29/16 at 08:00; Stop 12/29/16 at 08:00; Status DC Dextrose 12.5 gm PRN Q15MIN PRN IV SEE COMMENTS; Start 12/28/16 at 20:30 Lisinopril (Prinivil) 10 mg DAILY PO Last administered on 12/29/16 09:55; Start 12/29/16 at 09:00 Lisinopril (Prinivil) 10 mg 1X ONCE PO Last administered on 12/28/16 22:38; Start 12/28/16 at 20:30; Stop 12/28/16 at 20:33; Status DC Morphine Sulfate 1 mg PRN Q2HR PRN IV MODERATE PAIN Last administered on 22:38; Start 12/28/16 at 21:45 Acetaminophen (Tylenol) 500 mg PRN Q6HRS PRN PO MILD PAIN / TEMP Last administered on 12/29/16 10:59; Start 12/28/16 at 21:45 Aspirin (Ecotrin) 81 mg DAILYWBKFT PO Last administered on 12/29/16 09:55; Start 12/29/16 at 08:00 Morphine Sulfate 2 mg PRN Q2HR PRN IV SEVERE PAIN; Start 12/28/16 at 22:00 Hydralazine HCl (Apresoline) 10 mg PRN Q4HRS PRN IVP ELEVATED BP, SEE COMMENTS Last administered on 12/29/16 03:54; Start 12/28/16 at 22:00 Insulin Aspart (Novolog) 0-5 UNITS TIDWMEALS SQ Last administered on 12/29/16 10:01; Start 12/28/16 at 23:30 Info (Do NOT chart on this placeholder) 1 each PRN 1X PRN MC SEE COMMENTS; Start 12/29/16 at 04:45; Status UNV Pneumococcal Polyvalent Vaccine (Do NOT chart on this placeholder) 1 each PRN 1X PRN MC SEE COMMENTS; Start 12/29/16 at 04:45; Status UNV Influenza Virus Vaccine Quadrival (Fluarix Quad [id number] Syringe) 0.5 ml ONCE ONCE VAX IM ; Start 12/29/16 at 09:00; Stop 12/29/16 at 09:01; Status DC Pneumococcal Polyvalent Vaccine (Pneumovax 23) 0.5 ml ONCE ONCE VAX IM ; Start 12/29/16 at 09:00; Stop 12/29/16 at 09:01; Status DC Active Scripts Active Reported Lisinopril 10 Mg Tablet 10 Mg PO DAILY Metformin Hcl 500 Mg Tablet 1 Tab PO BID Allergies Allergies: Coded Allergies: No Known Drug Allergies (Unverified , 01/01/16) ROS General: YES: Appetite, Fatigue, Malaise PSYCHOLOGICAL ROS: YES: Anxiety Eyes: Yes Decreased vision HEENT: YES: Heacaches Cardiovascular: yes Chest Pain Gastrointestinal: Yes Constipation Genitourinary: YES Other (NOCTURIA) Musculoskeletal: Yes Muscular Weakness Neurological: Yes Weakness Skin: Yes Dry Skin Physical Exam General: Alert, Oriented X3, Cooperative, No acute distress HEENT: Atraumatic, PERRLA, EOMI, Mucous membr. moist/pink Lungs: Clear to auscultation, Normal air movement Heart: Regular rate Abdomen: Normal bowel sounds, No tenderness Extremities: No clubbing Neuro: Normal speech, Cranial nerves 3-12 NL Psych/Mental Status: Mental status NL, Mood NL MUSCULOSKELETAL: No deformity Vitals VITALS Vital Signs Date Time Temp Pulse Resp B/P Pulse Ox O2 Delivery O2 Flow Rate FiO2 12/29/16 09:55 104 164/79 12/29/16 07:00 100.2 18 92 Room Air 100.2 Labs Labs Laboratory Tests Test 12/28/16 16:45 12/28/16 20:30 12/29/16 03:18 12/29/16 08:39 White Blood Count 4.6x10^3/uL (4.0-11.0) 3.4x10^3/uL (4.0-11.0) Red Blood Count 3.42x10^6/uL (4.30-5.70) 2.93x10^6/uL (4.30-5.70) Hemoglobin 9.2g/dL (13.0-17.5) 7.9g/dL (13.0-17.5) Hematocrit 28.3% (39.0-53.0) 24.4% (39.0-53.0) Mean Corpuscular Volume 83fL (79-100) 83fL (79-100) Mean Corpuscular Hemoglobin 27pg (25-35) 27pg (25-35) Mean Corpuscular Hemoglobin Concent 33g/dL (31-37) 32g/dL (31-37) Red Cell Distribution Width 14.8% (11.5-14.5) 14.6% (11.5-14.5) Platelet Count 115x10^3/uL (140-400) 101x10^3/uL (140-400) Neutrophils (%) (Auto) 83% (31-73) 82% (31-73) Lymphocytes (%) (Auto) 8% (24-48) 8% (24-48) Monocytes (%) (Auto) 7% (0-9) 9% (0-9) Eosinophils (%) (Auto) 2% (0-3) 1% (0-3) Basophils (%) (Auto) 1% (0-3) 0% (0-3) Neutrophils # (Auto) 3.8x10^3uL (1.8-7.7) 2.8x10^3uL (1.8-7.7) Lymphocytes # (Auto) 0.4x10^3/uL (1.0-4.8) 0.3x10^3/uL (1.0-4.8) Monocytes # (Auto) 0.3x10^3/uL (0.0-1.1) 0.3x10^3/uL (0.0-1.1) Eosinophils # (Auto) 0.1x10^3/uL (0.0-0.7) 0.0x10^3/uL (0.0-0.7) Basophils # (Auto) 0.0x10^3/uL (0.0-0.2) 0.0x10^3/uL (0.0-0.2) Sodium Level 142mmol/L (136-145) 148mmol/L (136-145) Potassium Level 3.8mmol/L (3.5-5.1) 3.9mmol/L (3.5-5.1) Chloride Level 109mmol/L (98-107) 113mmol/L (98-107) Carbon Dioxide Level 28mmol/L (21-32) 29mmol/L (21-32) Anion Gap 5 (6-14) 6 (6-14) Blood Urea Nitrogen 16mg/dL (8-26) 18mg/dL (8-26) Creatinine 1.5mg/dL (0.7-1.3) 1.6mg/dL (0.7-1.3) Estimated GFR (Cockcroft-Gault) 57.4 53.3 Glucose Level 326mg/dL (70-99) 242mg/dL (70-99) Calcium Level 8.3mg/dL (8.5-10.1) 7.9mg/dL (8.5-10.1) Magnesium Level 1.7mg/dL (1.8-2.4) 2.4mg/dL (1.8-2.4) Troponin I Quantitative < 0.017ng/mL (0.000-0.055) 0.019ng/mL (0.000-0.055) TC-Twl-L-Type Natriuretic Peptide 2197pg/mL (0-124) Influenza Type A Antigen Negative (NEGATIVE) Influenza Type B Antigen Negative (NEGATIVE) Reticulocyte Count (auto) 0.5% (0.5-2.5) BUN/Creatinine Ratio 11 (6-20) Iron Level 16ug/dL (65-175) Total Iron Binding Capacity 134ug/dL (250-450) Iron Saturation 12% (15-34) Ferritin 182ng/mL (26-388) Total Bilirubin 0.3mg/dL (0.2-1.0) Aspartate Amino Transf (AST/SGOT) 21U/L (15-37) Alanine Aminotransferase (ALT/SGPT) 25U/L (16-63) Alkaline Phosphatase 91U/L (46-116) Total Protein 4.7g/dL (6.4-8.2) Albumin 2.2g/dL (3.4-5.0) Albumin/Globulin Ratio 0.9 (1.0-1.7) Triglycerides Level 87mg/dL (0-150) Cholesterol Level 159mg/dL (0-200) LDL Cholesterol, Calculated 70mg/dL (0-100) VLDL Cholesterol, Calculated 17mg/dL (0-40) HDL Cholesterol 72mg/dL (40-60) Cholesterol/HDL Ratio 2.2 Vitamin B12 Level 420pg/mL (247-911) Serum Folate 4.75ng/ml (3.2-20.0) Thyroid Stimulating Hormone (TSH) 0.409uIU/mL (0.358-3.74) Glucose (Fingerstick) 296mg/dL (70-99) Laboratory Tests Test 12/28/16 16:45 12/28/16 20:30 12/29/16 03:18 12/29/16 08:39 White Blood Count 4.6x10^3/uL (4.0-11.0) 3.4x10^3/uL (4.0-11.0) Red Blood Count 3.42x10^6/uL (4.30-5.70) 2.93x10^6/uL (4.30-5.70) Hemoglobin 9.2g/dL (13.0-17.5) 7.9g/dL (13.0-17.5) Hematocrit 28.3% (39.0-53.0) 24.4% (39.0-53.0) Mean Corpuscular Volume 83fL (79-100) 83fL (79-100) Mean Corpuscular Hemoglobin 27pg (25-35) 27pg (25-35) Mean Corpuscular Hemoglobin Concent 33g/dL (31-37) 32g/dL (31-37) Red Cell Distribution Width 14.8% (11.5-14.5) 14.6% (11.5-14.5) Platelet Count 115x10^3/uL (140-400) 101x10^3/uL (140-400) Neutrophils (%) (Auto) 83% (31-73) 82% (31-73) Lymphocytes (%) (Auto) 8% (24-48) 8% (24-48) Monocytes (%) (Auto) 7% (0-9) 9% (0-9) Eosinophils (%) (Auto) 2% (0-3) 1% (0-3) Basophils (%) (Auto) 1% (0-3) 0% (0-3) Neutrophils # (Auto) 3.8x10^3uL (1.8-7.7) 2.8x10^3uL (1.8-7.7) Lymphocytes # (Auto) 0.4x10^3/uL (1.0-4.8) 0.3x10^3/uL (1.0-4.8) Monocytes # (Auto) 0.3x10^3/uL (0.0-1.1) 0.3x10^3/uL (0.0-1.1) Eosinophils # (Auto) 0.1x10^3/uL (0.0-0.7) 0.0x10^3/uL (0.0-0.7) Basophils # (Auto) 0.0x10^3/uL (0.0-0.2) 0.0x10^3/uL (0.0-0.2) Sodium Level 142mmol/L (136-145) 148mmol/L (136-145) Potassium Level 3.8mmol/L (3.5-5.1) 3.9mmol/L (3.5-5.1) Chloride Level 109mmol/L (98-107) 113mmol/L (98-107) Carbon Dioxide Level 28mmol/L (21-32) 29mmol/L (21-32) Anion Gap 5 (6-14) 6 (6-14) Blood Urea Nitrogen 16mg/dL (8-26) 18mg/dL (8-26) Creatinine 1.5mg/dL (0.7-1.3) 1.6mg/dL (0.7-1.3) Estimated GFR (Cockcroft-Gault) 57.4 53.3 Glucose Level 326mg/dL (70-99) 242mg/dL (70-99) Calcium Level 8.3mg/dL (8.5-10.1) 7.9mg/dL (8.5-10.1) Magnesium Level 1.7mg/dL (1.8-2.4) 2.4mg/dL (1.8-2.4) Troponin I Quantitative < 0.017ng/mL (0.000-0.055) 0.019ng/mL (0.000-0.055) TC-Atx-R-Type Natriuretic Peptide 2197pg/mL (0-124) Influenza Type A Antigen Negative (NEGATIVE) Influenza Type B Antigen Negative (NEGATIVE) Reticulocyte Count (auto) 0.5% (0.5-2.5) BUN/Creatinine Ratio 11 (6-20) Iron Level 16ug/dL (65-175) Total Iron Binding Capacity 134ug/dL (250-450) Iron Saturation 12% (15-34) Ferritin 182ng/mL (26-388) Total Bilirubin 0.3mg/dL (0.2-1.0) Aspartate Amino Transf (AST/SGOT) 21U/L (15-37) Alanine Aminotransferase (ALT/SGPT) 25U/L (16-63) Alkaline Phosphatase 91U/L (46-116) Total Protein 4.7g/dL (6.4-8.2) Albumin 2.2g/dL (3.4-5.0) Albumin/Globulin Ratio 0.9 (1.0-1.7) Triglycerides Level 87mg/dL (0-150) Cholesterol Level 159mg/dL (0-200) LDL Cholesterol, Calculated 70mg/dL (0-100) VLDL Cholesterol, Calculated 17mg/dL (0-40) HDL Cholesterol 72mg/dL (40-60) Cholesterol/HDL Ratio 2.2 Vitamin B12 Level 420pg/mL (247-911) Serum Folate 4.75ng/ml (3.2-20.0) Thyroid Stimulating Hormone (TSH) 0.409uIU/mL (0.358-3.74) Glucose (Fingerstick) 296mg/dL (70-99) Assessment/Plan Assessment/Plan IMP CHEST PAIN HTN DM II CKD STAGE 3 WITH CR CURRENTLY AT BASELINE NON COMPLIANCE HYPERNATREMIA DIASTOLIC HF-CXRAY CLEAR PLAN INCREASE LISINOPRIL CHECK UA CARDIOLOGY EVAL AND TX LOW FLOW HYPOTONIC SALINE WILL FOLLOW ENC COMPLIANCE RADHA HARRIS MD Dec 29, 2016 11:18
--- NOTE | 2016-12-29 11:46 | CARD ---
APPROVED REPORT EXAM: Two-dimensional and M-mode echocardiogram with Doppler and color Doppler. Other Information Quality : Average Rhythm : Tachycardia INDICATION Congestive Heart Failure 2D DIMENSIONS RVDd2.0 (2.9-3.5cm)Left Atrium(2D)3.3 (1.6-4.0cm) IVSd1.5 (0.7-1.1cm)Aortic Root(2D)2.6 (2.0-3.7cm) LVDd4.5 (3.9-5.9cm)LVOT Diameter2.2 (1.8-2.4cm) PWd1.5 (0.7-1.1cm)LVDs2.4 (2.5-4.0cm) FS (%) 39.1 %SV71.5 ml LVEF(%)70.6 (>50%) Aortic Valve AoV Peak Giacomo.131.0cm/sAoV VTI17.4cm AO Peak GR.6.9mmHgLVOT Peak Giacomo.98.3cm/s LVOT VTI 17.11cmAO Mean GR.3mmHg MINDI (VMAX)2.40zd3OVB (VTI)3.74cm2 Mitral Valve MV E Zjeekelx62.1cm/sMV DECEL [id number] MV A Xpuynqku552.6cm/sMV E Mean Gr.3mmHg MV DTK98dyC/A Ratio0.8 MV A Doslkkcc09lkKEN (PHT)4.16cm2 TDI E/Lateral E'13.1E/Medial E'13.3 Pulmonary Valve PV Peak Luzmdwyt837.6cm/sPV Peak Grad.8mmHg RVOT VTI24.8cm Tricuspid Valve TR P. Xpxezuww873sr/sRAP RLJKPDOF5deSm TR Peak Gr.22rmDpRQUL50vtJc LEFT VENTRICLE The left ventricle is normal size. There is moderate concentric left ventricular hypertrophy. Left ve ntricle systolic function is normal. The Ejection Fraction is 65-70%. There is normal LV segmental wa ll motion. Tissue Doppler imaging reveals mild left ventricular diastolic dysfunction. RIGHT VENTRICLE The right ventricle is normal size. The right ventricular systolic function is normal. ATRIA The left atrium size is normal. The right atrium size is normal. The interatrial septum is intact wit h no evidence for an atrial septal defect or patent foramen ovale as noted on 2-D or Doppler imaging. AORTIC VALVE The aortic valve is normal in structure and function. The aortic valve is trileaflet. Doppler and Col or Flow revealed no significant aortic regurgitation. There is no significant aortic valvular stenosi s. MITRAL VALVE The mitral valve is normal in structure and function. There is no mitral valve stenosis. Doppler and Color Flow revealed no mitral valve regurgitation noted. TRICUSPID VALVE The tricuspid valve is normal in structure. Doppler and Color Flow revealed mild to moderate tricuspi d regurgitation. The PA pressure was estimated at 49 mmHg. There is no tricuspid valve stenosis. PULMONIC VALVE The pulmonic valve is not well visualized. Doppler and Color Flow revealed no pulmonic valvular regur gitation. There is no pulmonic valvular stenosis. GREAT VESSELS The aortic root is normal in size. Normal pulmonary venous flow (Doppler). The IVC is normal in size and collapses <50% with inspiration. PERICARDIAL EFFUSION There is no evidence of significant pericardial effusion. Critical Notification Critical Value: No <Conclusion> There is moderate concentric left ventricular hypertrophy. Left ventricle systolic function is normal. The Ejection Fraction is 65-70%. There is normal LV segmental wall motion. Doppler and Color Flow revealed mild to moderate tricuspid regurgitation. The PA pressure was estimat ed at 49 mmHg.
[2016-12-29] MEDS: IV 1/2 NORMAL SALINE 1,000 ML IV SCH (12:03)
[2016-12-29] MEDS: CEFTRIAXONE SODIUM 1 GM in IV NORMAL SALINE 50ML 50 ML IV SCH (13:08)
[2016-12-29] MEDS ORDERED: BENZOCAINE/MENTHOL LOZENGE. PO PRN (18:30)
[2016-12-30] VITALS (10 sets, daily range): BP systolic 146–195; BP diastolic 72–95
[2016-12-30] MEDS: hydrALAZINE 20 MG/ML VIAL. IVP PRN ×5 (01:12→23:18)
[2016-12-30] MEDS: IV 1/2 NORMAL SALINE 1,000 ML IV SCH ×2 (04:30→22:09)
[2016-12-30 05:30] LABS: CALCIUM 7.8 mg/dL (8.5-10.1); CREATININE 1.9 mg/dL (0.7-1.3); GFR 43.7; POTASSIUM 4.1 mmol/L (3.5-5.1)
[2016-12-30 06:13] LABS: BASO % 0 % (0-3); EOS % 0 % (0-3); HEMATOCRIT 28.4 % (39.0-53.0); HEMOGLOBIN 9.2 g/dL (13.0-17.5); LYMPH # 0.7 x10^3/uL (1.0-4.8); LYMPH % 13 % (24-48); MEAN CORPUSCULAR HEMOGLOBIN 27 pg (25-35); MEAN CORPUSCULAR HGB CONC 33 g/dL (31-37); MEAN CORPUSCULAR VOLUME 83 fL (79-100); MONO % 9 % (0-9); NEUT % 78 % (31-73); PLATELET COUNT 101 x10^3/uL (140-400); RED BLOOD COUNT 3.43 x10^6/uL (4.30-5.70); RED CELL DISTRIBUTION WIDTH 14.7 % (11.5-14.5); WHITE BLOOD COUNT 5.4 x10^3/uL (4.0-11.0)
[2016-12-30] MEDS: ACETAMINOPHEN 500 MG TABLET PO PRN ×3 (08:27→20:30)
[2016-12-30] MEDS: ASPIRIN ENTERIC COATED 81 MG TABLET.DR. PO SCH (08:27)
[2016-12-30] MEDS: LISINOPRIL 20 MG TABLET PO SCH (08:27)
[2016-12-30] MEDS: INSULIN ASPART 300 UNITS/3 ML INSULN.PEN SQ SCH ×3 (08:35→17:16)
--- NOTE | 2016-12-30 09:35 | PDOC ---
Infectious Disease Note Vital Sign Vital Signs Vital Signs Date Time Temp Pulse Resp B/P Pulse Ox O2 Delivery O2 Flow Rate FiO2 12/30/16 08:27 103 194/95 12/30/16 08:04 102.4 20 93 Room Air 102.4 Labs Lab Laboratory Tests Test 12/29/16 11:51 12/29/16 16:25 12/29/16 21:26 12/30/16 03:40 Glucose (Fingerstick) 267mg/dL (70-99) 182mg/dL (70-99) 207mg/dL (70-99) Sodium Level 144mmol/L (136-145) Potassium Level 4.1mmol/L (3.5-5.1) Chloride Level 110mmol/L (98-107) Carbon Dioxide Level 25mmol/L (21-32) Anion Gap 9 (6-14) Blood Urea Nitrogen 24mg/dL (8-26) Creatinine 1.9mg/dL (0.7-1.3) Estimated GFR (Cockcroft-Gault) 43.7 Glucose Level 233mg/dL (70-99) Calcium Level 7.8mg/dL (8.5-10.1) Test 12/30/16 04:00 White Blood Count 5.4x10^3/uL (4.0-11.0) Red Blood Count 3.43x10^6/uL (4.30-5.70) Hemoglobin 9.2g/dL (13.0-17.5) Hematocrit 28.4% (39.0-53.0) Mean Corpuscular Volume 83fL (79-100) Mean Corpuscular Hemoglobin 27pg (25-35) Mean Corpuscular Hemoglobin Concent 33g/dL (31-37) Red Cell Distribution Width 14.7% (11.5-14.5) Platelet Count 101x10^3/uL (140-400) Neutrophils (%) (Auto) 78% (31-73) Lymphocytes (%) (Auto) 13% (24-48) Monocytes (%) (Auto) 9% (0-9) Eosinophils (%) (Auto) 0% (0-3) Basophils (%) (Auto) 0% (0-3) Neutrophils # (Auto) 4.2x10^3uL (1.8-7.7) Lymphocytes # (Auto) 0.7x10^3/uL (1.0-4.8) Monocytes # (Auto) 0.5x10^3/uL (0.0-1.1) Eosinophils # (Auto) 0.0x10^3/uL (0.0-0.7) Basophils # (Auto) 0.0x10^3/uL (0.0-0.2) Objective Assessment Fever Sinusitis Pulmonary infection CP DM HTN CRI Plan Plan of Care cont rocephine add levaquin ct chest and ct sinuses supportive care workup as ordered TRI COWART MD Dec 30, 2016 09:35
--- NOTE | 2016-12-30 10:46 | PDOC ---
PROGRESS NOTES Chief Complaint Chief Complaint Chest pain New onset CHF DOMINIQUE vs CRI HTN Diabetes, non-controlled Chronic Anemia Hypercholesterolemia Sinusitis Fever Anemia History of Present Illness History of Present Illness Yesterday, during a transfusion for hemoglobin of 7.9, patient had a fever to 102.6F. The transfusion was stopped and a sepsis workup began, ID was consulted. Patient's hemoglobin this morning is 9.2. He reports that he is tired today, but overall is feeling slightly better. Vitals Vitals Vital Signs Date Time Temp Pulse Resp B/P Pulse Ox O2 Delivery O2 Flow Rate FiO2 12/30/16 10:39 101.3 99 18 174/88 94 Room Air 101.3 Physical Exam General: Alert, Oriented X3, Cooperative Heart: Regular rate, No murmurs Lungs: Clear Abdomen: Normal bowel sounds, Soft, No tenderness Extremities: No edema, Normal pulses Skin: No breakdown, No significant lesion Labs LABS Laboratory Tests Test 12/29/16 11:51 12/29/16 16:25 12/29/16 21:26 12/30/16 03:40 Glucose (Fingerstick) 267mg/dL (70-99) 182mg/dL (70-99) 207mg/dL (70-99) Sodium Level 144mmol/L (136-145) Potassium Level 4.1mmol/L (3.5-5.1) Chloride Level 110mmol/L (98-107) Carbon Dioxide Level 25mmol/L (21-32) Anion Gap 9 (6-14) Blood Urea Nitrogen 24mg/dL (8-26) Creatinine 1.9mg/dL (0.7-1.3) Estimated GFR (Cockcroft-Gault) 43.7 Glucose Level 233mg/dL (70-99) Calcium Level 7.8mg/dL (8.5-10.1) Test 12/30/16 04:00 White Blood Count 5.4x10^3/uL (4.0-11.0) Red Blood Count 3.43x10^6/uL (4.30-5.70) Hemoglobin 9.2g/dL (13.0-17.5) Hematocrit 28.4% (39.0-53.0) Mean Corpuscular Volume 83fL (79-100) Mean Corpuscular Hemoglobin 27pg (25-35) Mean Corpuscular Hemoglobin Concent 33g/dL (31-37) Red Cell Distribution Width 14.7% (11.5-14.5) Platelet Count 101x10^3/uL (140-400) Neutrophils (%) (Auto) 78% (31-73) Lymphocytes (%) (Auto) 13% (24-48) Monocytes (%) (Auto) 9% (0-9) Eosinophils (%) (Auto) 0% (0-3) Basophils (%) (Auto) 0% (0-3) Neutrophils # (Auto) 4.2x10^3uL (1.8-7.7) Lymphocytes # (Auto) 0.7x10^3/uL (1.0-4.8) Monocytes # (Auto) 0.5x10^3/uL (0.0-1.1) Eosinophils # (Auto) 0.0x10^3/uL (0.0-0.7) Basophils # (Auto) 0.0x10^3/uL (0.0-0.2) Review of Systems Review of Systems Tired today. Febrile to 102.6 overnight, during transfusion. Denies chest pain and shortness of breath. Assessment and Plan Assessmemt and Plan Problems Medical Problems: (1) Acute exacerbation of congestive heart failure Status: Acute (2) Uncontrolled hypertension Status: Acute ASSESSMENT: Chest pain New onset CHF DOMINIQUE vs CRI HTN Diabetes, non-controlled Chronic Anemia Hypercholesterolemia Sinusitis Fever Anemia PLAN: ID was consulted for fever of 102.6, workup in progress, their recommendations are appreciated Antibiotics per ID Awaiting results of CT chest and CT sinuses Renal is following, their recommendations are appreciated Cardiology is following, their recommendations are appreciated IVF per renal Monitor blood glucose Continue pain control Monitor daily labs PT/OT Problems: Comment Review of Relevant I have reviewed the following items griselda (where applicable) has been applied. Labs Laboratory Tests Test 12/28/16 16:45 12/28/16 20:30 12/29/16 03:18 12/29/16 08:39 White Blood Count 4.6x10^3/uL (4.0-11.0) 3.4x10^3/uL (4.0-11.0) Red Blood Count 3.42x10^6/uL (4.30-5.70) 2.93x10^6/uL (4.30-5.70) Hemoglobin 9.2g/dL (13.0-17.5) 7.9g/dL (13.0-17.5) Hematocrit 28.3% (39.0-53.0) 24.4% (39.0-53.0) Mean Corpuscular Volume 83fL (79-100) 83fL (79-100) Mean Corpuscular Hemoglobin 27pg (25-35) 27pg (25-35) Mean Corpuscular Hemoglobin Concent 33g/dL (31-37) 32g/dL (31-37) Red Cell Distribution Width 14.8% (11.5-14.5) 14.6% (11.5-14.5) Platelet Count 115x10^3/uL (140-400) 101x10^3/uL (140-400) Neutrophils (%) (Auto) 83% (31-73) 82% (31-73) Lymphocytes (%) (Auto) 8% (24-48) 8% (24-48) Monocytes (%) (Auto) 7% (0-9) 9% (0-9) Eosinophils (%) (Auto) 2% (0-3) 1% (0-3) Basophils (%) (Auto) 1% (0-3) 0% (0-3) Neutrophils # (Auto) 3.8x10^3uL (1.8-7.7) 2.8x10^3uL (1.8-7.7) Lymphocytes # (Auto) 0.4x10^3/uL (1.0-4.8) 0.3x10^3/uL (1.0-4.8) Monocytes # (Auto) 0.3x10^3/uL (0.0-1.1) 0.3x10^3/uL (0.0-1.1) Eosinophils # (Auto) 0.1x10^3/uL (0.0-0.7) 0.0x10^3/uL (0.0-0.7) Basophils # (Auto) 0.0x10^3/uL (0.0-0.2) 0.0x10^3/uL (0.0-0.2) Sodium Level 142mmol/L (136-145) 148mmol/L (136-145) Potassium Level 3.8mmol/L (3.5-5.1) 3.9mmol/L (3.5-5.1) Chloride Level 109mmol/L (98-107) 113mmol/L (98-107) Carbon Dioxide Level 28mmol/L (21-32) 29mmol/L (21-32) Anion Gap 5 (6-14) 6 (6-14) Blood Urea Nitrogen 16mg/dL (8-26) 18mg/dL (8-26) Creatinine 1.5mg/dL (0.7-1.3) 1.6mg/dL (0.7-1.3) Estimated GFR (Cockcroft-Gault) 57.4 53.3 Glucose Level 326mg/dL (70-99) 242mg/dL (70-99) Calcium Level 8.3mg/dL (8.5-10.1) 7.9mg/dL (8.5-10.1) Magnesium Level 1.7mg/dL (1.8-2.4) 2.4mg/dL (1.8-2.4) Troponin I Quantitative < 0.017ng/mL (0.000-0.055) 0.019ng/mL (0.000-0.055) PJ-Cvw-K-Type Natriuretic Peptide 2197pg/mL (0-124) Influenza Type A Antigen Negative (NEGATIVE) Influenza Type B Antigen Negative (NEGATIVE) Reticulocyte Count (auto) 0.5% (0.5-2.5) BUN/Creatinine Ratio 11 (6-20) Hemoglobin A1c 12.0% (4.8-5.6) Iron Level 16ug/dL (65-175) Total Iron Binding Capacity 134ug/dL (250-450) Iron Saturation 12% (15-34) Ferritin 182ng/mL (26-388) Total Bilirubin 0.3mg/dL (0.2-1.0) Aspartate Amino Transf (AST/SGOT) 21U/L (15-37) Alanine Aminotransferase (ALT/SGPT) 25U/L (16-63) Alkaline Phosphatase 91U/L (46-116) Total Protein 4.7g/dL (6.4-8.2) Albumin 2.2g/dL (3.4-5.0) Albumin/Globulin Ratio 0.9 (1.0-1.7) Triglycerides Level 87mg/dL (0-150) Cholesterol Level 159mg/dL (0-200) LDL Cholesterol, Calculated 70mg/dL (0-100) VLDL Cholesterol, Calculated 17mg/dL (0-40) HDL Cholesterol 72mg/dL (40-60) Cholesterol/HDL Ratio 2.2 Vitamin B12 Level 420pg/mL (247-911) Serum Folate 4.75ng/ml (3.2-20.0) Thyroid Stimulating Hormone (TSH) 0.409uIU/mL (0.358-3.74) Glucose (Fingerstick) 296mg/dL (70-99) Test 12/29/16 11:51 12/29/16 16:25 12/29/16 21:26 12/30/16 03:40 Glucose (Fingerstick) 267mg/dL (70-99) 182mg/dL (70-99) 207mg/dL (70-99) Sodium Level 144mmol/L (136-145) Potassium Level 4.1mmol/L (3.5-5.1) Chloride Level 110mmol/L (98-107) Carbon Dioxide Level 25mmol/L (21-32) Anion Gap 9 (6-14) Blood Urea Nitrogen 24mg/dL (8-26) Creatinine 1.9mg/dL (0.7-1.3) Estimated GFR (Cockcroft-Gault) 43.7 Glucose Level 233mg/dL (70-99) Calcium Level 7.8mg/dL (8.5-10.1) Test 12/30/16 04:00 White Blood Count 5.4x10^3/uL (4.0-11.0) Red Blood Count 3.43x10^6/uL (4.30-5.70) Hemoglobin 9.2g/dL (13.0-17.5) Hematocrit 28.4% (39.0-53.0) Mean Corpuscular Volume 83fL (79-100) Mean Corpuscular Hemoglobin 27pg (25-35) Mean Corpuscular Hemoglobin Concent 33g/dL (31-37) Red Cell Distribution Width 14.7% (11.5-14.5) Platelet Count 101x10^3/uL (140-400) Neutrophils (%) (Auto) 78% (31-73) Lymphocytes (%) (Auto) 13% (24-48) Monocytes (%) (Auto) 9% (0-9) Eosinophils (%) (Auto) 0% (0-3) Basophils (%) (Auto) 0% (0-3) Neutrophils # (Auto) 4.2x10^3uL (1.8-7.7) Lymphocytes # (Auto) 0.7x10^3/uL (1.0-4.8) Monocytes # (Auto) 0.5x10^3/uL (0.0-1.1) Eosinophils # (Auto) 0.0x10^3/uL (0.0-0.7) Basophils # (Auto) 0.0x10^3/uL (0.0-0.2) Laboratory Tests Test 12/29/16 11:51 12/29/16 16:25 12/29/16 21:26 12/30/16 03:40 Glucose (Fingerstick) 267mg/dL (70-99) 182mg/dL (70-99) 207mg/dL (70-99) Sodium Level 144mmol/L (136-145) Potassium Level 4.1mmol/L (3.5-5.1) Chloride Level 110mmol/L (98-107) Carbon Dioxide Level 25mmol/L (21-32) Anion Gap 9 (6-14) Blood Urea Nitrogen 24mg/dL (8-26) Creatinine 1.9mg/dL (0.7-1.3) Estimated GFR (Cockcroft-Gault) 43.7 Glucose Level 233mg/dL (70-99) Calcium Level 7.8mg/dL (8.5-10.1) Test 12/30/16 04:00 White Blood Count 5.4x10^3/uL (4.0-11.0) Red Blood Count 3.43x10^6/uL (4.30-5.70) Hemoglobin 9.2g/dL (13.0-17.5) Hematocrit 28.4% (39.0-53.0) Mean Corpuscular Volume 83fL (79-100) Mean Corpuscular Hemoglobin 27pg (25-35) Mean Corpuscular Hemoglobin Concent 33g/dL (31-37) Red Cell Distribution Width 14.7% (11.5-14.5) Platelet Count 101x10^3/uL (140-400) Neutrophils (%) (Auto) 78% (31-73) Lymphocytes (%) (Auto) 13% (24-48) Monocytes (%) (Auto) 9% (0-9) Eosinophils (%) (Auto) 0% (0-3) Basophils (%) (Auto) 0% (0-3) Neutrophils # (Auto) 4.2x10^3uL (1.8-7.7) Lymphocytes # (Auto) 0.7x10^3/uL (1.0-4.8) Monocytes # (Auto) 0.5x10^3/uL (0.0-1.1) Eosinophils # (Auto) 0.0x10^3/uL (0.0-0.7) Basophils # (Auto) 0.0x10^3/uL (0.0-0.2) Medications Current Medications Aspirin ([employer] Aspirin) 325 mg 1X ONCE PO Last administered on 12/28/16 17:28 ; Start 12/28/16 at 17:15; Stop 12/28/16 at 17:16; Status DC Nitroglycerin (Nitrostat) 0.4 mg PRN Q5MIN PRN SL CP RATING > 1/10 Last administered on 12/28/16 18:16; Start 12/28/16 at 17:15; Stop 12/29/16 at 17:14 ; Status DC Acetaminophen 500 mg 500 mg 1X ONCE PO Last administered on 12/28/16 18:15; Start 12/28/16 at 18:15; Stop 12/28/16 at 18:16; Status DC Magnesium Sulfate/ Dextrose (Magnesium Sulfate PREMIX 2GM) 50 ml @ 25 mls/hr 1X ONCE IV Last administered on 12/28/16 23:12; Start 12/28/16 at 20:30; Stop 12/28/16 at 22:29; Status DC Insulin Aspart (Novolog) 0-5 UNITS TIDWMEALS SQ ; Start 12/29/16 at 08:00; Stop 12/29/16 at 08:00; Status DC Dextrose 12.5 gm PRN Q15MIN PRN IV SEE COMMENTS; Start 12/28/16 at 20:30 Lisinopril (Prinivil) 10 mg DAILY PO Last administered on 12/29/16 09:55; Start 12/29/16 at 09:00; Stop 12/29/16 at 11:19; Status DC Lisinopril (Prinivil) 10 mg 1X ONCE PO Last administered on 12/28/16 22:38; Start 12/28/16 at 20:30; Stop 12/28/16 at 20:33; Status DC Morphine Sulfate 1 mg PRN Q2HR PRN IV MODERATE PAIN Last administered on 22:38; Start 12/28/16 at 21:45 Acetaminophen (Tylenol) 500 mg PRN Q6HRS PRN PO MILD PAIN / TEMP Last administered on 12/30/16 08:27; Start 12/28/16 at 21:45 Aspirin (Ecotrin) 81 mg [id number] PO Last administered on 12/30/16 08:27; Start 12/29/16 at 08:00 Morphine Sulfate 2 mg PRN Q2HR PRN IV SEVERE PAIN; Start 12/28/16 at 22:00 Hydralazine HCl (Apresoline) 10 mg PRN Q4HRS PRN IVP ELEVATED BP, SEE COMMENTS Last administered on 12/30/16 08:27; Start 12/28/16 at 22:00 Insulin Aspart (Novolog) 0-5 UNITS TIDWMEALS SQ Last administered on 12/30/16 08:35; Start 12/28/16 at 23:30 Info (Do NOT chart on this placeholder) 1 each PRN 1X PRN MC SEE COMMENTS; Start 12/29/16 at 04:45; Status UNV Pneumococcal Polyvalent Vaccine (Do NOT chart on this placeholder) 1 each PRN 1X PRN MC SEE COMMENTS; Start 12/29/16 at 04:45; Status UNV Influenza Virus Vaccine Quadrival (Fluarix Quad [id number] Syringe) 0.5 ml ONCE ONCE VAX IM ; Start 12/29/16 at 09:00; Stop 12/29/16 at 09:01; Status DC Pneumococcal Polyvalent Vaccine (Pneumovax 23) 0.5 ml ONCE ONCE VAX IM ; Start 12/29/16 at 09:00; Stop 12/29/16 at 09:01; Status DC Lisinopril 20 mg 20 mg DAILY PO Last administered on 12/30/16 08:27; Start at 09:00 Sodium Chloride 1,000 ml @ 75 mls/hr [id number] IV Last administered on 04:30; Start 12/29/16 at 11:30 Ceftriaxone Sodium/Sodium Chloride (Rocephin/Iv Sodium Chloride 0.9% 50ml) 50 ml @ 100 mls/hr Q24H IV Last administered on 12/29/16 13:08; Start 12/29/16 at 13:00 Throat Lozenges 1 gayla 1 gayla PRN Q2HRS PRN PO SORE THROAT Last administered on 20:28; Start 12/29/16 at 18:30 Levofloxacin/ Dextrose (LEVAQUIN 500mg PREMIX) 100 ml @ 100 mls/hr Q24H IV ; Start 12/30/16 at 10:00 Active Scripts Active Reported Lisinopril 10 Mg Tablet 10 Mg PO DAILY Metformin Hcl 500 Mg Tablet 1 Tab PO BID Vitals/I & O Vital Sign - Last 24 Hours 12/29/16 12/29/16 12/29/16 12/29/16 11:00 12:30 15:00 18:05 Temp 101.5 100.5 100.6 100.4 101.5 100.5 100.6 100.4 Pulse 105 93 Resp B/P 151/72 146/77 Pulse Ox 91 90 O2 Delivery Room Air Room Air 12/29/16 12/29/16 12/29/16 12/29/16 20:00 20:31 23:07 23:13 Temp 100.9 100.9 100.9 100.9 Pulse 102 111 110 Resp 16 18 B/P 180/83 195/94 195/94 Pulse Ox 96 O2 Delivery Room Air Room Air 12/29/16 12/29/16 12/29/16 12/29/16 23:19 23:20 23:20 23:28 Temp 100.8 100.8 102.6 101.4 100.8 100.8 102.6 101.4 Pulse 108 108 110 Resp 18 18 20 B/P 187/96 187/96 190/95 Pulse Ox 94 O2 Delivery Room Air 12/29/16 12/29/16 12/30/16 12/30/16 23:42 23:55 01:12 01:59 Temp 100.8 102.6 100.8 102.6 Pulse 109 109 104 Resp 18 B/P 100.8 102.6 190/95 146/72 12/30/16 12/30/16 12/30/16 12/30/16 03:15 07:30 08:00 08:04 Temp 99.7 102.4 99.7 102.4 Pulse 107 103 Resp 18 20 B/P 176/85 194/95 Pulse Ox 94 93 O2 Delivery Room Air Room Air Room Air Room Air 12/30/16 12/30/16 12/30/16 12/30/16 08:27 08:27 09:31 10:39 Temp 100.5 101.3 100.5 101.3 Pulse 103 103 99 Resp 18 B/P 194/95 194/95 171/83 174/88 Pulse Ox 94 O2 Delivery Room Air Intake and Output 12/29/16 12/29/16 12/30/16 15:00 23:00 07:00 Intake Total 625 ml 1290 ml Output Total 450 ml 0 ml 700 ml Balance -450 ml 625 ml 590 ml CATRACHO CHIU III DO Dec 30, 2016 10:46
--- NOTE | 2016-12-30 11:12 | PDOC ---
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 12/30/16 1112: CARDIO Progress Notes Date and Time Date of Service 12/30/16 Time of Evaluation 1035 Subjective Subjective: No Chest Pain, No shortness of breath, No Palpitations, Other (c/o being tired ) Comments: febrile overnight Vitals Vitals Vital Signs Date Time Temp Pulse Resp B/P Pulse Ox O2 Delivery O2 Flow Rate FiO2 12/30/16 10:39 101.3 99 18 174/88 94 Room Air 101.3 Weight Weight [ ] Input and Output Intake and Output Intake and Output 12/30/16 07:00 Intake Total 1915 ml Output Total 1150 ml Balance 765 ml Intake Oral 380 ml IV Total 1425 ml Blood Product IV Normal Saline Flush 110 ml Output Urine Total 1150 ml Laboratory Labs Laboratory Tests Test 12/29/16 11:51 12/29/16 16:25 12/29/16 21:26 12/30/16 03:40 Glucose (Fingerstick) 267mg/dL (70-99) 182mg/dL (70-99) 207mg/dL (70-99) Sodium Level 144mmol/L (136-145) Potassium Level 4.1mmol/L (3.5-5.1) Chloride Level 110mmol/L (98-107) Carbon Dioxide Level 25mmol/L (21-32) Anion Gap 9 (6-14) Blood Urea Nitrogen 24mg/dL (8-26) Creatinine 1.9mg/dL (0.7-1.3) Estimated GFR (Cockcroft-Gault) 43.7 Glucose Level 233mg/dL (70-99) Calcium Level 7.8mg/dL (8.5-10.1) Test 12/30/16 04:00 12/30/16 10:42 White Blood Count 5.4x10^3/uL (4.0-11.0) Red Blood Count 3.43x10^6/uL (4.30-5.70) Hemoglobin 9.2g/dL (13.0-17.5) Hematocrit 28.4% (39.0-53.0) Mean Corpuscular Volume 83fL (79-100) Mean Corpuscular Hemoglobin 27pg (25-35) Mean Corpuscular Hemoglobin Concent 33g/dL (31-37) Red Cell Distribution Width 14.7% (11.5-14.5) Platelet Count 101x10^3/uL (140-400) Neutrophils (%) (Auto) 78% (31-73) Lymphocytes (%) (Auto) 13% (24-48) Monocytes (%) (Auto) 9% (0-9) Eosinophils (%) (Auto) 0% (0-3) Basophils (%) (Auto) 0% (0-3) Neutrophils # (Auto) 4.2x10^3uL (1.8-7.7) Lymphocytes # (Auto) 0.7x10^3/uL (1.0-4.8) Monocytes # (Auto) 0.5x10^3/uL (0.0-1.1) Eosinophils # (Auto) 0.0x10^3/uL (0.0-0.7) Basophils # (Auto) 0.0x10^3/uL (0.0-0.2) Glucose (Fingerstick) 226mg/dL (70-99) Physical Exam HEENT: Neck Supple W Full Motion Chest: Symmetric LUNGS: Clear to Auscultation Heart: S1S2, RRR, no murmurs Abdomen: Soft N/T Extremities: 2+ Dorsalis Pedis, No Edema, No Calf Tenderness Neurology: alert, oriented, follow commands, other (flat affect ) Assessment Assessment 1. Mild acute diastolic HF; compensated 2. Malignant hypertension 3. Hyperlipidemia 4. Pulmonary hypertension; PAP 49 5. Diabetes, II 6. DOMINIQUE with CKD 7. Anemia 8. Fevers 9. Noncompliance Recommendations Echo with moderate LVH; EF 65-70% BP labile; will add Norvasc check UDS reinforced compliance Management of DOMINIQUE/CKD per nephrology ID workup ongoing with fevers TAQUERIA CONWAY MD 12/31/16 0248: CARDIO Progress Notes Plan Plan Late entry for 12/30/2016 Pt. seen and examined. Agree with above OBIEE ARCHITECT note Normal cardiac exam Labs reviewed BP control better, outpt titration Will follow peripherally NANDA TREVINO APRN Dec 30, 2016 11:12 TAQUERIA CONWAY MD Dec 31, 2016 02:48
--- NOTE | 2016-12-30 11:53 | PDOC ---
Renal-Progress Notes Subjective Notes Notes NONE History of Present Illness Hx of present illness STABLE Vitals Vitals Vital Signs Date Time Temp Pulse Resp B/P Pulse Ox O2 Delivery O2 Flow Rate FiO2 12/30/16 10:39 101.3 99 18 174/88 94 Room Air 101.3 Weight Weight [ ] I.O. Intake and Output Intake and Output 12/30/16 07:00 Intake Total 1915 ml Output Total 1150 ml Balance 765 ml Intake Oral 380 ml IV Total 1425 ml Blood Product IV Normal Saline Flush 110 ml Output Urine Total 1150 ml Labs Labs Laboratory Tests Test 12/29/16 11:51 12/29/16 16:25 12/29/16 21:26 12/30/16 03:40 Glucose (Fingerstick) 267mg/dL (70-99) 182mg/dL (70-99) 207mg/dL (70-99) Sodium Level 144mmol/L (136-145) Potassium Level 4.1mmol/L (3.5-5.1) Chloride Level 110mmol/L (98-107) Carbon Dioxide Level 25mmol/L (21-32) Anion Gap 9 (6-14) Blood Urea Nitrogen 24mg/dL (8-26) Creatinine 1.9mg/dL (0.7-1.3) Estimated GFR (Cockcroft-Gault) 43.7 Glucose Level 233mg/dL (70-99) Calcium Level 7.8mg/dL (8.5-10.1) Test 12/30/16 04:00 12/30/16 10:42 12/30/16 11:00 White Blood Count 5.4x10^3/uL (4.0-11.0) Red Blood Count 3.43x10^6/uL (4.30-5.70) Hemoglobin 9.2g/dL (13.0-17.5) Hematocrit 28.4% (39.0-53.0) Mean Corpuscular Volume 83fL (79-100) Mean Corpuscular Hemoglobin 27pg (25-35) Mean Corpuscular Hemoglobin Concent 33g/dL (31-37) Red Cell Distribution Width 14.7% (11.5-14.5) Platelet Count 101x10^3/uL (140-400) Neutrophils (%) (Auto) 78% (31-73) Lymphocytes (%) (Auto) 13% (24-48) Monocytes (%) (Auto) 9% (0-9) Eosinophils (%) (Auto) 0% (0-3) Basophils (%) (Auto) 0% (0-3) Neutrophils # (Auto) 4.2x10^3uL (1.8-7.7) Lymphocytes # (Auto) 0.7x10^3/uL (1.0-4.8) Monocytes # (Auto) 0.5x10^3/uL (0.0-1.1) Eosinophils # (Auto) 0.0x10^3/uL (0.0-0.7) Basophils # (Auto) 0.0x10^3/uL (0.0-0.2) Glucose (Fingerstick) 226mg/dL (70-99) Lactic Acid Level 0.8mmol/L (0.4-2.0) Review of Systems Constitutional: yes: no symptom reported Physical Exam General Appearance: no apparent distress Skin: warm Respiratory: bilateral CTA Heart: S1S2 Abdomen: soft, bowel sounds present Neurology: alert Musculoskeletal: Other (no pertinent hx) Assessment Assessment IMP HTN C PAIN CKD STAGE 3 HX CHF-COMPENSATED PLAN CONT IVFS CARDIOLOGY EVAL AND TX RADHA HARRIS MD Dec 30, 2016 11:53
[2016-12-30 12:07] LABS: NEGATIVE OBC MYCO NEG; POSITIVE OBC MYCO POS
--- NOTE | 2016-12-30 12:17 | CONS ---
DATE OF CONSULTATION: 12/30/2016 REQUESTING PHYSICIAN: Dr. Connors. REASON FOR CONSULTATION: Fever. HISTORY OF PRESENT ILLNESS: This is a 61-year-old gentleman with history of diabetes and hypertension who came in with chest pain and some shortness of breath. The patient did not have fever at home, but he has been running significant fever since he is here. The patient denied any nausea, vomiting, diarrhea. Denied any abdominal pain. The patient had been diagnosed initially as mild CHF and echo was done, which was unremarkable. His white count was as low as 3.4, creatinine 1.9 and patient is receiving Rocephin. PAST MEDICAL HISTORY: Positive for hypertension, diabetes, sickle cell trait, hyperlipidemia and renal insufficiency. SOCIAL HISTORY: Negative for smoking, alcohol, illicit drug use. ALLERGIES: No known drug allergies. CURRENT MEDICATIONS: Reviewed. The patient is on Rocephin. REVIEW OF SYSTEMS: As per HPI, all other systems reviewed are negative. PHYSICAL EXAMINATION: GENERAL: Alert, oriented gentleman, not in distress. VITAL SIGNS: Stable, although temperature is 102.4, pulse 103, respirations 20, blood pressure 194/95. HEENT: Both pupils are round and reacting. No conjunctival lesion, no lesion in the mouth. NECK: Supple, no JVP, no lymphadenopathy. LUNGS: The patient does have left submandibular lymph node. LUNGS: Clear. HEART: S1, S2 regular. No gallop or murmur. ABDOMEN: Soft, nontender, no organomegaly. EXTREMITIES: No edema, cyanosis. SKIN: Unremarkable. NEUROLOGIC: The patient is neurologically intact. LABORATORY DATA: White count is 5.4, BUN 24, creatinine 1.9. When he came in, creatinine was 1.5. Lactic acid was not done. Hemoglobin A1c is 12. Influenza screen was done, negative. Chest x-ray is unremarkable for any acute changes. IMPRESSION: 1. Fever, probably viral in origin, although the patient does have halitosis. The patient could have significant sinus infection versus even lung infection that is not obvious on the chest x-ray yet. 2. Chest pressure/pain. 3. Slight mild elevation of the BNP, echo is unremarkable. 4. Diabetes. 5. Hypertension. 6. Renal insufficiency. RECOMMENDATIONS: Continue Rocephin, add levofloxacin. We will get CT sinuses and CT chest, also blood culture and lactic acid and will continue to follow. Thank you very much, Dr. Maria for giving me the opportunity to participate in this patient's care. TRI COWART MD DR: DIANA/shaq JOB#: [id number] / [id number]
[2016-12-30] MEDS: CEFTRIAXONE SODIUM 1 GM in IV NORMAL SALINE 50ML 50 ML IV SCH (12:35)
--- NOTE | 2016-12-30 12:55 | RAD ---
CT of the chest without contrast, 12/30/2016: History: Fever Noncontrast scans were obtained as requested. There is mild calcific plaquing of the thoracic aorta without evidence of aneurysm. There are calcified lymph nodes at the right hilum. There are small mediastinal lymph nodes without evidence of pathologic enlargement. There are small bilateral pleural effusions. There is mild atelectasis posteriorly in both lungs, particularly in the left lung base. No pulmonary mass or dense consolidation is seen. There is mild streaky increased density in the subcutaneous soft tissues suggesting anasarca. There is a trace amount of ascites along the anterior aspect of the right lobe of the liver. IMPRESSION: 1. Small bilateral pleural effusions with mild associated dependent atelectasis, left greater than right. 2. Mild anasarca. PQRS Compliance Statement: One or more of the following individualized dose reduction techniques were utilized for this examination: 1. Automated exposure control 2. Adjustment of the mA and/or kV according to patient size 3. Use of iterative reconstruction technique
--- NOTE | 2016-12-30 13:10 | RAD ---
CT of the head without contrast, 12/30/2016: History: Fever No IV contrast was administered in this patient with a history of renal insufficiency. The ventricles are within normal limits in size. There is no shift of the midline structures. There is no evidence of acute intracranial hemorrhage or mass effect. IMPRESSION: No significant intracranial abnormality is detected. CT of the paranasal sinuses without contrast, 12/30/2016: Noncontrast scans were obtained with multiplanar reconstructions produced. There is mild mucosal thickening in both ethmoid and maxillary sinuses. This involves the ethmoid infundibulum of the ostiomeatal complex on both sides. A lobulated density along the floor of the right maxillary sinus is probably a retention cyst. No free fluid is evident in the sinuses. The frontal and sphenoid sinuses are clear. No underlying bony abnormality is detected. The orbital contents are unremarkable. IMPRESSION: Mild mucosal thickening in both maxillary and ethmoid sinuses. PQRS Compliance Statement: One or more of the following individualized dose reduction techniques were utilized for this examination: 1. Automated exposure control 2. Adjustment of the mA and/or kV according to patient size 3. Use of iterative reconstruction technique
[2016-12-30] MEDS: AMLODIPINE BESYLATE 5 MG TABLET. PO SCH ×2 (15:11→18:07)
[2016-12-30] MEDS ORDERED: ONDANSETRON PF 4 MG/2 ML VIAL. IV PRN (20:15)
[2016-12-31 03:14] LABS: BARBITURATES NEG (NEG); BENZODIAZEPINES NEG (NEG); CANNABINOIDS NEG (NEG); COCAINE NEG (NEG); ETHANOL, URINE NEG (NEG); METHADONE NEG (NEG); OPIATES POS (NEG); PHENCYCLIDINE NEG (NEG)
[2016-12-31 03:15] VITALS: BP 163/77
[2016-12-31 05:30] LABS: CREATININE 2.2 mg/dL (0.7-1.3); GFR 36.9; POTASSIUM 4.3 mmol/L (3.5-5.1)
[2016-12-31 05:50] LABS: BASO % 0 % (0-3); EOS % 0 % (0-3); HEMATOCRIT 27.8 % (39.0-53.0); HEMOGLOBIN 9.2 g/dL (13.0-17.5); LYMPH # 0.6 x10^3/uL (1.0-4.8); LYMPH % 14 % (24-48); MEAN CORPUSCULAR HEMOGLOBIN 27 pg (25-35); MEAN CORPUSCULAR HGB CONC 33 g/dL (31-37); MEAN CORPUSCULAR VOLUME 82 fL (79-100); MONO % 10 % (0-9); NEUT % 75 % (31-73); PLATELET COUNT 107 x10^3/uL (140-400); RED BLOOD COUNT 3.42 x10^6/uL (4.30-5.70); RED CELL DISTRIBUTION WIDTH 14.8 % (11.5-14.5)
[2016-12-31 07:45] VITALS: BP 161/85
[2016-12-31] MEDS: ASPIRIN ENTERIC COATED 81 MG TABLET.DR. PO SCH (08:00)
[2016-12-31] MEDS: AMLODIPINE BESYLATE 5 MG TABLET. PO SCH (09:00)
[2016-12-31] MEDS: LISINOPRIL 20 MG TABLET PO SCH (09:00)
[2016-12-31] MEDS: INSULIN ASPART 300 UNITS/3 ML INSULN.PEN SQ SCH ×3 (09:47→18:28)
[2016-12-31] MEDS: IV 1/2 NORMAL SALINE 1,000 ML IV SCH ×2 (09:52→18:25)
[2016-12-31] MEDS ORDERED: POLYETHYLENE GLYCOL 3350 17 GM PACKET. PO PRN (10:00)
--- NOTE | 2016-12-31 10:23 | PDOC ---
Infectious Disease Note Subjective Subjective Persistent fevers, Tmax 101.2 w/ chills c/o VILLALOBOS, sinus congestion and sore throat some better Has a dry cough, No SOA or chest discomfort. Appetite good Denies N/V/D, constipation or abdominal pain ROS ROS NEURO: Denies confusion, dizziness MSK: Denies weakness, joint pain/swelling Vital Sign Vital Signs Vital Signs Date Time Temp Pulse Resp B/P Pulse Ox O2 Delivery O2 Flow Rate FiO2 12/31/16 07:45 101.2 104 18 161/85 94 Room Air 101.2 Physical Exam PHYSICAL EXAM GENERAL: Propped up in bed, smiling, NAD HEENT: PERRL, OC/OP clear NECK: Supple, no JVD, no LN LUNGS: Diminished aeration bases, nonlabored HEART: S1S2, no gallop, no murmur ABD: Soft, NT, BS present EXT: No edema, no cyanosis PEST CONTROL CHEMICAL TECHNICIAN: Alert, oriented x 3, no focal neurologic deficit SKIN: No rash IV: ok Labs Lab Laboratory Tests Test 12/30/16 10:42 12/30/16 11:00 12/30/16 16:49 12/30/16 20:54 Glucose (Fingerstick) 226mg/dL (70-99) 227mg/dL (70-99) 208mg/dL (70-99) Lactic Acid Level 0.8mmol/L (0.4-2.0) Mycoplasma Serology (LAB) Negative (NEGATIVE) Test 12/31/16 02:50 12/31/16 03:45 12/31/16 05:00 12/31/16 07:38 Urine Opiates Screen Pos (NEG) Urine Methadone Screen Neg (NEG) Urine Barbiturates Neg (NEG) Urine Phencyclidine Screen Neg (NEG) Urine Amphetamine/Methamphetamine Neg (NEG) Urine Benzodiazepines Screen Neg (NEG) Urine Cocaine Screen Neg (NEG) Urine Cannabinoids Screen Neg (NEG) Urine Ethyl Alcohol Neg (NEG) Sodium Level 141mmol/L (136-145) Potassium Level 4.3mmol/L (3.5-5.1) Chloride Level 108mmol/L (98-107) Carbon Dioxide Level 24mmol/L (21-32) Anion Gap 9 (6-14) Blood Urea Nitrogen 31mg/dL (8-26) Creatinine 2.2mg/dL (0.7-1.3) Estimated GFR (Cockcroft-Gault) 36.9 Glucose Level 194mg/dL (70-99) Calcium Level 8.0mg/dL (8.5-10.1) White Blood Count 4.0x10^3/uL (4.0-11.0) Red Blood Count 3.42x10^6/uL (4.30-5.70) Hemoglobin 9.2g/dL (13.0-17.5) Hematocrit 27.8% (39.0-53.0) Mean Corpuscular Volume 82fL (79-100) Mean Corpuscular Hemoglobin 27pg (25-35) Mean Corpuscular Hemoglobin Concent 33g/dL (31-37) Red Cell Distribution Width 14.8% (11.5-14.5) Platelet Count 107x10^3/uL (140-400) Neutrophils (%) (Auto) 75% (31-73) Lymphocytes (%) (Auto) 14% (24-48) Monocytes (%) (Auto) 10% (0-9) Eosinophils (%) (Auto) 0% (0-3) Basophils (%) (Auto) 0% (0-3) Neutrophils # (Auto) 3.0x10^3uL (1.8-7.7) Lymphocytes # (Auto) 0.6x10^3/uL (1.0-4.8) Monocytes # (Auto) 0.4x10^3/uL (0.0-1.1) Eosinophils # (Auto) 0.0x10^3/uL (0.0-0.7) Basophils # (Auto) 0.0x10^3/uL (0.0-0.2) Glucose (Fingerstick) 176mg/dL (70-99) Chest CT IMPRESSION: 1. Small bilateral pleural effusions with mild associated dependent atelectasis, left greater than right. 2. Mild anasarca. CT of the head without contrast, 12/30/2016: History: Fever No IV contrast was administered in this patient with a history of renal insufficiency. The ventricles are within normal limits in size. There is no shift of the midline structures. There is no evidence of acute intracranial hemorrhage or mass effect. IMPRESSION: No significant intracranial abnormality is detected. CT of the paranasal sinuses without contrast, 12/30/2016: Noncontrast scans were obtained with multiplanar reconstructions produced. There is mild mucosal thickening in both ethmoid and maxillary sinuses. This involves the ethmoid infundibulum of the ostiomeatal complex on both sides. A lobulated density along the floor of the right maxillary sinus is probably a retention cyst. No free fluid is evident in the sinuses. The frontal and sphenoid sinuses are clear. No underlying bony abnormality is detected. The orbital contents are unremarkable. IMPRESSION: Mild mucosal thickening in both maxillary and ethmoid sinuses. Micro sputum GRAM STAIN Final WBCS MODERATE MIXED FRANCOISE FEW SQUAMOUS EPITHELIAL CELLS FEW Objective Assessment Fever - may still be a viral process Sinusitis. clinically he states he is feeling better Pulmonary infection CP DM HTN DOMINIQUE Plan Plan of Care Cont Rocephin and Levaquin. he states he is feeling better and eating some more. Monitor labs/Cr BC pending supportive care d/w family Attending Co-Sign Attending Co-Sign The patient was seen and interviewed as well as examined at the bedside. The chart was reviewed. The case was discussed. Agree with the plan of care. RALPH LUNDBERG APRN Dec 31, 2016 10:23 KRZYSZTOF TYLER MD Dec 31, 2016 11:56
[2016-12-31 11:57] VITALS: BP 129/77
[2016-12-31] MEDS: DOCUSATE SODIUM 100 MG CAPSULE. PO SCH ×2 (12:32→21:18)
[2016-12-31] MEDS: CEFTRIAXONE SODIUM 1 GM in IV NORMAL SALINE 50ML 50 ML IV SCH (12:33)
[2016-12-31] MEDS ORDERED: DEXTROSE 50% 25 GM / 50ML DISP.SYRIN. IV PRN (13:30)
--- NOTE | 2016-12-31 13:36 | PDOC ---
PROGRESS NOTES Chief Complaint Chief Complaint CC:Chest pain DOMINIQUE vs CRI; CKD stage 3 HTN Diabetes, non-controlled Chronic Anemia Hypercholesterolemia Sinusitis Fever Anemia HFpEF History of Present Illness History of Present Illness Patient seen and evaluated at bedside. Patient spiked temperatures last night with Tmax of 102. ID following. Pt states he is feeling better, but still c/o chills, VILLALOBOS, sinus congestion, and sore throat with dry cough. Hgb stable at 9.2 after transfusion on 12/29 Vitals Vitals Vital Signs Date Time Temp Pulse Resp B/P Pulse Ox O2 Delivery O2 Flow Rate FiO2 12/31/16 11:57 99.0 96 18 129/77 93 Room Air 99.0 Physical Exam General: Alert, Oriented X3, Cooperative Heart: Regular rate, No murmurs Lungs: Clear Abdomen: Normal bowel sounds, Soft, No tenderness Extremities: No edema, Normal pulses Skin: No breakdown, No significant lesion Labs LABS Laboratory Tests Test 12/30/16 16:49 12/30/16 20:54 12/31/16 02:50 12/31/16 03:45 Glucose (Fingerstick) 227mg/dL (70-99) 208mg/dL (70-99) Urine Opiates Screen Pos (NEG) Urine Methadone Screen Neg (NEG) Urine Barbiturates Neg (NEG) Urine Phencyclidine Screen Neg (NEG) Urine Amphetamine/Methamphetamine Neg (NEG) Urine Benzodiazepines Screen Neg (NEG) Urine Cocaine Screen Neg (NEG) Urine Cannabinoids Screen Neg (NEG) Urine Ethyl Alcohol Neg (NEG) Sodium Level 141mmol/L (136-145) Potassium Level 4.3mmol/L (3.5-5.1) Chloride Level 108mmol/L (98-107) Carbon Dioxide Level 24mmol/L (21-32) Anion Gap 9 (6-14) Blood Urea Nitrogen 31mg/dL (8-26) Creatinine 2.2mg/dL (0.7-1.3) Estimated GFR (Cockcroft-Gault) 36.9 Glucose Level 194mg/dL (70-99) Calcium Level 8.0mg/dL (8.5-10.1) Test 12/31/16 05:00 12/31/16 07:38 12/31/16 11:42 White Blood Count 4.0x10^3/uL (4.0-11.0) Red Blood Count 3.42x10^6/uL (4.30-5.70) Hemoglobin 9.2g/dL (13.0-17.5) Hematocrit 27.8% (39.0-53.0) Mean Corpuscular Volume 82fL (79-100) Mean Corpuscular Hemoglobin 27pg (25-35) Mean Corpuscular Hemoglobin Concent 33g/dL (31-37) Red Cell Distribution Width 14.8% (11.5-14.5) Platelet Count 107x10^3/uL (140-400) Neutrophils (%) (Auto) 75% (31-73) Lymphocytes (%) (Auto) 14% (24-48) Monocytes (%) (Auto) 10% (0-9) Eosinophils (%) (Auto) 0% (0-3) Basophils (%) (Auto) 0% (0-3) Neutrophils # (Auto) 3.0x10^3uL (1.8-7.7) Lymphocytes # (Auto) 0.6x10^3/uL (1.0-4.8) Monocytes # (Auto) 0.4x10^3/uL (0.0-1.1) Eosinophils # (Auto) 0.0x10^3/uL (0.0-0.7) Basophils # (Auto) 0.0x10^3/uL (0.0-0.2) Glucose (Fingerstick) 176mg/dL (70-99) 187mg/dL (70-99) Review of Systems Review of Systems (+) Persistent fevers, Tmax 101.2 (+) chills (+) VILLALOBOS (+) sinus congestion (+) nonproductive cough (+) constipation Denies chest pain, shortness of breath, abdominal pain, n/v/d Assessment and Plan Assessmemt and Plan Problems Medical Problems: (1) Acute exacerbation of congestive heart failure Status: Acute (2) Uncontrolled hypertension Status: Acute HFpEF, EF of 65-70% tricupsid regurgitation DOMINIQUE vs CRI; CKD stage 3 HTN Diabetes, non-controlled Chronic Anemia Hypercholesterolemia Sinusitis Fever Anemia plan: continue rocephin and levaquin for abx coverage follow cx; no prelminary growth on blood cultures recheck labs colace 100 BID for constipation continue IVF, per nephro; monitor for volume overload continue norvasc, per cardiology, UDS negative except for opiates ID, cardiology, and nephrology consult, recommendations appreciated PT/OT evaluation and recommendations Problems: Comment Review of Relevant I have reviewed the following items griselda (where applicable) has been applied. Labs Laboratory Tests Test 12/29/16 16:25 12/29/16 21:26 12/30/16 03:40 12/30/16 04:00 Glucose (Fingerstick) 182mg/dL (70-99) 207mg/dL (70-99) Sodium Level 144mmol/L (136-145) Potassium Level 4.1mmol/L (3.5-5.1) Chloride Level 110mmol/L (98-107) Carbon Dioxide Level 25mmol/L (21-32) Anion Gap 9 (6-14) Blood Urea Nitrogen 24mg/dL (8-26) Creatinine 1.9mg/dL (0.7-1.3) Estimated GFR (Cockcroft-Gault) 43.7 Glucose Level 233mg/dL (70-99) Calcium Level 7.8mg/dL (8.5-10.1) White Blood Count 5.4x10^3/uL (4.0-11.0) Red Blood Count 3.43x10^6/uL (4.30-5.70) Hemoglobin 9.2g/dL (13.0-17.5) Hematocrit 28.4% (39.0-53.0) Mean Corpuscular Volume 83fL (79-100) Mean Corpuscular Hemoglobin 27pg (25-35) Mean Corpuscular Hemoglobin Concent 33g/dL (31-37) Red Cell Distribution Width 14.7% (11.5-14.5) Platelet Count 101x10^3/uL (140-400) Neutrophils (%) (Auto) 78% (31-73) Lymphocytes (%) (Auto) 13% (24-48) Monocytes (%) (Auto) 9% (0-9) Eosinophils (%) (Auto) 0% (0-3) Basophils (%) (Auto) 0% (0-3) Neutrophils # (Auto) 4.2x10^3uL (1.8-7.7) Lymphocytes # (Auto) 0.7x10^3/uL (1.0-4.8) Monocytes # (Auto) 0.5x10^3/uL (0.0-1.1) Eosinophils # (Auto) 0.0x10^3/uL (0.0-0.7) Basophils # (Auto) 0.0x10^3/uL (0.0-0.2) Test 12/30/16 10:42 12/30/16 11:00 12/30/16 16:49 12/30/16 20:54 Glucose (Fingerstick) 226mg/dL (70-99) 227mg/dL (70-99) 208mg/dL (70-99) Lactic Acid Level 0.8mmol/L (0.4-2.0) Mycoplasma Serology (LAB) Negative (NEGATIVE) Test 12/31/16 02:50 12/31/16 03:45 12/31/16 05:00 12/31/16 07:38 Urine Opiates Screen Pos (NEG) Urine Methadone Screen Neg (NEG) Urine Barbiturates Neg (NEG) Urine Phencyclidine Screen Neg (NEG) Urine Amphetamine/Methamphetamine Neg (NEG) Urine Benzodiazepines Screen Neg (NEG) Urine Cocaine Screen Neg (NEG) Urine Cannabinoids Screen Neg (NEG) Urine Ethyl Alcohol Neg (NEG) Sodium Level 141mmol/L (136-145) Potassium Level 4.3mmol/L (3.5-5.1) Chloride Level 108mmol/L (98-107) Carbon Dioxide Level 24mmol/L (21-32) Anion Gap 9 (6-14) Blood Urea Nitrogen 31mg/dL (8-26) Creatinine 2.2mg/dL (0.7-1.3) Estimated GFR (Cockcroft-Gault) 36.9 Glucose Level 194mg/dL (70-99) Calcium Level 8.0mg/dL (8.5-10.1) White Blood Count 4.0x10^3/uL (4.0-11.0) Red Blood Count 3.42x10^6/uL (4.30-5.70) Hemoglobin 9.2g/dL (13.0-17.5) Hematocrit 27.8% (39.0-53.0) Mean Corpuscular Volume 82fL (79-100) Mean Corpuscular Hemoglobin 27pg (25-35) Mean Corpuscular Hemoglobin Concent 33g/dL (31-37) Red Cell Distribution Width 14.8% (11.5-14.5) Platelet Count 107x10^3/uL (140-400) Neutrophils (%) (Auto) 75% (31-73) Lymphocytes (%) (Auto) 14% (24-48) Monocytes (%) (Auto) 10% (0-9) Eosinophils (%) (Auto) 0% (0-3) Basophils (%) (Auto) 0% (0-3) Neutrophils # (Auto) 3.0x10^3uL (1.8-7.7) Lymphocytes # (Auto) 0.6x10^3/uL (1.0-4.8) Monocytes # (Auto) 0.4x10^3/uL (0.0-1.1) Eosinophils # (Auto) 0.0x10^3/uL (0.0-0.7) Basophils # (Auto) 0.0x10^3/uL (0.0-0.2) Glucose (Fingerstick) 176mg/dL (70-99) Test 12/31/16 11:42 Glucose (Fingerstick) 187mg/dL (70-99) Laboratory Tests Test 12/30/16 16:49 12/30/16 20:54 12/31/16 02:50 12/31/16 03:45 Glucose (Fingerstick) 227mg/dL (70-99) 208mg/dL (70-99) Urine Opiates Screen Pos (NEG) Urine Methadone Screen Neg (NEG) Urine Barbiturates Neg (NEG) Urine Phencyclidine Screen Neg (NEG) Urine Amphetamine/Methamphetamine Neg (NEG) Urine Benzodiazepines Screen Neg (NEG) Urine Cocaine Screen Neg (NEG) Urine Cannabinoids Screen Neg (NEG) Urine Ethyl Alcohol Neg (NEG) Sodium Level 141mmol/L (136-145) Potassium Level 4.3mmol/L (3.5-5.1) Chloride Level 108mmol/L (98-107) Carbon Dioxide Level 24mmol/L (21-32) Anion Gap 9 (6-14) Blood Urea Nitrogen 31mg/dL (8-26) Creatinine 2.2mg/dL (0.7-1.3) Estimated GFR (Cockcroft-Gault) 36.9 Glucose Level 194mg/dL (70-99) Calcium Level 8.0mg/dL (8.5-10.1) Test 12/31/16 05:00 12/31/16 07:38 12/31/16 11:42 White Blood Count 4.0x10^3/uL (4.0-11.0) Red Blood Count 3.42x10^6/uL (4.30-5.70) Hemoglobin 9.2g/dL (13.0-17.5) Hematocrit 27.8% (39.0-53.0) Mean Corpuscular Volume 82fL (79-100) Mean Corpuscular Hemoglobin 27pg (25-35) Mean Corpuscular Hemoglobin Concent 33g/dL (31-37) Red Cell Distribution Width 14.8% (11.5-14.5) Platelet Count 107x10^3/uL (140-400) Neutrophils (%) (Auto) 75% (31-73) Lymphocytes (%) (Auto) 14% (24-48) Monocytes (%) (Auto) 10% (0-9) Eosinophils (%) (Auto) 0% (0-3) Basophils (%) (Auto) 0% (0-3) Neutrophils # (Auto) 3.0x10^3uL (1.8-7.7) Lymphocytes # (Auto) 0.6x10^3/uL (1.0-4.8) Monocytes # (Auto) 0.4x10^3/uL (0.0-1.1) Eosinophils # (Auto) 0.0x10^3/uL (0.0-0.7) Basophils # (Auto) 0.0x10^3/uL (0.0-0.2) Glucose (Fingerstick) 176mg/dL (70-99) 187mg/dL (70-99) Microbiology 12/30/16 Blood Culture - Preliminary, Resulted NO GROWTH AFTER 1 DAY 12/31/16 Gram Stain - Final, Complete Medications Current Medications Aspirin (Fauzia Aspirin) 325 mg 1X ONCE PO Last administered on 12/28/16t 17:28 ; Start 12/28/16 at 17:15; Stop 12/28/16 at 17:16; Status DC Nitroglycerin (Nitrostat) 0.4 mg PRN Q5MIN PRN SL CP RATING > 1/10 Last administered on 12/28/16 18:16; Start 12/28/16 at 17:15; Stop 12/29/16 at 17:14 ; Status DC Acetaminophen 500 mg 500 mg 1X ONCE PO Last administered on 12/28/16 18:15; Start 12/28/16 at 18:15; Stop 12/28/16 at 18:16; Status DC Magnesium Sulfate/ Dextrose (Magnesium Sulfate PREMIX 2GM) 50 ml @ 25 mls/hr 1X ONCE IV Last administered on 12/28/16 23:12; Start 12/28/16 at 20:30; Stop 12/28/16 at 22:29; Status DC Insulin Aspart (Novolog) 0-5 UNITS TIDWMEALS SQ ; Start 12/29/16 at 08:00; Stop 12/29/16 at 08:00; Status DC Dextrose 12.5 gm PRN Q15MIN PRN IV SEE COMMENTS; Start 12/28/16 at 20:30; Stop 12/31/16 at 13:17; Status DC Lisinopril (Prinivil) 10 mg DAILY PO Last administered on 12/29/16 09:55; Start 12/29/16 at 09:00; Stop 12/29/16 at 11:19; Status DC Lisinopril (Prinivil) 10 mg 1X ONCE PO Last administered on 12/28/16 22:38; Start 12/28/16 at 20:30; Stop 12/28/16 at 20:33; Status DC Morphine Sulfate 1 mg PRN Q2HR PRN IV MODERATE PAIN Last administered on 22:38; Start 12/28/16 at 21:45 Acetaminophen (Tylenol) 500 mg PRN Q6HRS PRN PO MILD PAIN / TEMP Last administered on 12/30/16 20:30; Start 12/28/16 at 21:45 Aspirin (Ecotrin) 81 mg [id number] PO Last administered on 12/31/16 08:00; Start 12/29/16 at 08:00 Morphine Sulfate 2 mg PRN Q2HR PRN IV SEVERE PAIN; Start 12/28/16 at 22:00 Hydralazine HCl (Apresoline) 10 mg PRN Q4HRS PRN IVP ELEVATED BP, SEE COMMENTS Last administered on 12/30/16 23:18; Start 12/28/16 at 22:00 Insulin Aspart (Novolog) 0-5 UNITS TIDWMEALS SQ Last administered on 12/31/16 12:43; Start 12/28/16 at 23:30 Info (Do NOT chart on this placeholder) 1 each PRN 1X PRN MC SEE COMMENTS; Start 12/29/16 at 04:45; Status UNV Pneumococcal Polyvalent Vaccine (Do NOT chart on this placeholder) 1 each PRN 1X PRN MC SEE COMMENTS; Start 12/29/16 at 04:45; Status UNV Influenza Virus Vaccine Quadrival (Fluarix Quad 1365-9772 Syringe) 0.5 ml ONCE ONCE VAX IM ; Start 12/29/16 at 09:00; Stop 12/29/16 at 09:01; Status DC Pneumococcal Polyvalent Vaccine (Pneumovax 23) 0.5 ml ONCE ONCE VAX IM ; Start 12/29/16 at 09:00; Stop 12/29/16 at 09:01; Status DC Lisinopril 20 mg 20 mg DAILY PO Last administered on 12/31/16 09:00; Start at 09:00 Sodium Chloride 1,000 ml @ 75 mls/hr [id number] IV Last administered on 12/31/16 09:52; Start 12/29/16 at 11:30 Ceftriaxone Sodium/Sodium Chloride (Rocephin/Iv Sodium Chloride 0.9% 50ml) 50 ml @ 100 mls/hr Q24H IV Last administered on 12/31/16 12:33; Start 12/29/16 at 13:00 Throat Lozenges 1 gayla 1 gayla PRN Q2HRS PRN PO SORE THROAT Last administered on 20:28; Start 12/29/16 at 18:30 Levofloxacin/ Dextrose (LEVAQUIN 500mg PREMIX) 100 ml @ 100 mls/hr Q24H IV Last administered on 12/31/16 10:00; Start 12/30/16 at 10:00 Amlodipine Besylate (Norvasc) 5 mg DAILY PO Last administered on 12/30/16 18: 07; Start 12/30/16 at 15:00; Stop 12/30/16 at 18:22; Status DC Amlodipine Besylate (Norvasc) 10 mg DAILY PO Last administered on 12/31/16 09: 00; Start 12/31/16 at 09:00 Ondansetron HCl (Zofran) 4 mg PRN Q6HRS PRN IV NAUSEA/VOMITING Last administered on 12/30/16 20:30; Start 12/30/16 at 20:15 Docusate Sodium (Colace) 100 mg BID PO Last administered on 12/31/16 12:32; Start 12/31/16 at 11:00 Polyethylene Glycol (miraLAX PACKET) 17 gm PRN DAILY PRN PO CONSTIPATION; Start 12/31/16 at 10:00 Dextrose (Dextrose 50%-Water Syringe) 12.5 gm PRN Q15MIN PRN IV SEE COMMENTS; Start 12/31/16 at 13:30 Active Scripts Active Reported Lisinopril 10 Mg Tablet 10 Mg PO DAILY Metformin Hcl 500 Mg Tablet 1 Tab PO BID Vitals/I & O Vital Sign - Last 24 Hours 12/30/16 12/30/16 12/30/16 12/30/16 14:46 15:10 15:11 16:11 Temp 98.9 98.9 Pulse 86 86 95 B/P 195/90 183/90 183/90 165/77 O2 Delivery Room Air 12/30/16 12/30/16 12/30/16 12/30/16 18:07 19:30 19:35 20:00 Temp 100.2 100.2 Pulse 100 99 Resp 16 B/P 177/87 186/90 186/92 Pulse Ox 97 O2 Delivery Room Air Room Air 12/30/16 12/30/16 12/31/16 12/31/16 23:18 23:42 03:15 07:45 Temp 100.8 100.0 101.2 100.8 100.0 101.2 Pulse 100 100 104 104 Resp 18 16 18 B/P 177/81 177/81 163/77 161/85 Pulse Ox 94 96 94 O2 Delivery Room Air Room Air Room Air 12/31/16 12/31/16 12/31/16 12/31/16 08:00 09:00 09:00 11:57 Temp 99.0 99.0 Pulse 104 104 96 Resp 18 B/P 161/85 161/85 129/77 Pulse Ox 93 O2 Delivery Room Air Room Air Intake and Output 12/30/16 12/30/16 12/31/16 14:59 22:59 06:59 Intake Total 120 ml 1050 ml 150 ml Output Total 100 ml 700 ml Balance 120 ml 950 ml -550 ml Nutrition Consultation Dietary Evaluation: Recommendations by RD: Dietary education by RD, Increase Calorie Intake, Protein supplementation Comments: Educated on MNT for CHF Boost glucose control strawberry flavor TID (in place of fluids at meals) - 250kcal and 14g protein Expected Outcomes/Goals: meet >75% est nutr needs Malnutrition Findings: Food and Nutrition Intake (Mod: <75% est energy req 7days Body Fat Depletion (Non Severe: Mild Depletion Malnutrition related to morbid: No Weight Status: Appropriate CATRACHO CHIU III DO Dec 31, 2016 13:36
[2016-12-31 15:00] VITALS: BP 143/67
--- NOTE | 2016-12-31 15:41 | PDOC ---
SUBJECTIVE ROS DOMINIQUE Doign OK, Constipated + Fever CVS: no Orthopnea, no CP RESP: no SOB, no PUCKETT GI: no Nausea, no Vomiting : no Dysuria, no Urgency OBJECTIVE Vital Signs Vital Signs Date Time Temp Pulse Resp B/P Pulse Ox O2 Delivery O2 Flow Rate FiO2 12/31/16 11:57 99.0 96 18 129/77 93 Room Air 99.0 I & 0 Intake and Output 12/31/16 06:59 Intake Total 1320 ml Output Total 800 ml Balance 520 ml Intake Oral 270 ml IV Total 1050 ml Output Urine Total 700 ml Emesis 100 ml PHYSICAL EXAM Physical Exam GEN: Awake, Oriented x 3, In no distress EYES: Vision Unchanged, Conjunctiva Normal EN: No EN Drainage, Mucous Membranes moist NECK: no JVD, no JVP, Supple, no Thyromegaly CVS: S1S2, no Murmur, No Gallop, No Rub,no Edema RESP: no Rales, no Rhonchi,no Acc. Muscle Use GI: BS + ve, NO Bruit, Non Tender, Non Distended : no CVA tenderness, no Suprapubic Tenderness DIAGNOSIS/ASSESSMENT Assessment & Plan ARF/ ATN ? : on IVF. Current fluid and E-lyte status does not necessitate emergent need for dialysis. Will re-evaluate for dialysis in the am. ANEMIA; check Iron; may need Aranesp as ordered, Transfuse as needed; B 12 is good HTN: Current BP meds as reviewed. See orders for changes. Hypoalbuminemia - check UA, Doubt Paraproteinemia but will check for completion Constipation - Bowel regimen as ordered ? CKD III as outlined previously, ? HTNsive / NS - check US Discussed Plan of Care with family at bedside Problems: COMMENT/RELEVANT DATA Meds Current Medications Medications (Trade) Dose Ordered Sig/Jerson Start Time Stop Time Status Last Admin Dose Admin Acetaminophen (Tylenol) 500 mg PRN Q6HRS PRN 12/28/16 21:45 12/30/16 20:30 500 MG Acetaminophen 500 mg 500 mg 1X ONCE 12/28/16 18:15 12/28/16 18:16 DC 12/28/16 18:15 500 MG Amlodipine Besylate (Norvasc) 10 mg DAILY 12/31/16 09:00 12/31/16 09:00 10 MG Aspirin (Fauzia Aspirin) 325 mg 1X ONCE 12/28/16 17:15 12/28/16 17:16 DC 12/28/16 17:28 325 MG Aspirin (Ecotrin) 81 mg [id number] 12/29/16 08:00 12/31/16 08:00 81 MG Ceftriaxone Sodium/Sodium Chloride (Rocephin/Iv Sodium Chloride 0.9% 50ml) 50 ml @ 100 mls/hr Q24H 12/29/16 13:00 12/31/16 12:33 100 MLS/HR Dextrose (Dextrose 50%-Water Syringe) 12.5 gm PRN Q15MIN PRN 12/31/16 13:30 Docusate Sodium (Colace) 100 mg BID 12/31/16 11:00 12/31/16 12:32 100 MG Hydralazine HCl (Apresoline) 10 mg PRN Q4HRS PRN 12/28/16 22:00 12/30/16 23:18 10 MG Influenza Virus Vaccine Quadrival (Fluarix Quad [id number] Syringe) 0.5 ml ONCE ONCE 12/29/16 09:00 12/29/16 09:01 DC Info (Do NOT chart on this placeholder) 1 each PRN 1X PRN 12/29/16 04:45 UNV Insulin Aspart (Novolog) 0-5 UNITS TIDWMEALS 12/28/16 23:30 12/31/16 12:43 2 UNITS Levofloxacin/ Dextrose (LEVAQUIN 500mg PREMIX) 100 ml @ 100 mls/hr Q24H 12/30/16 10:00 12/31/16 10:00 100 MLS/HR Lisinopril (Prinivil) 10 mg 1X ONCE 12/28/16 20:30 12/28/16 20:33 DC 12/28/16 22:38 10 MG Lisinopril 20 mg 20 mg DAILY 12/30/16 09:00 12/31/16 09:00 20 MG Magnesium Sulfate/ Dextrose (Magnesium Sulfate PREMIX 2GM) 50 ml @ 25 mls/hr 1X ONCE 12/28/16 20:30 12/28/16 22:29 DC 12/28/16 23:12 25 MLS/HR Morphine Sulfate 2 mg PRN Q2HR PRN 12/28/16 22:00 Nitroglycerin (Nitrostat) 0.4 mg PRN Q5MIN PRN 12/28/16 17:15 12/29/16 17:14 DC 12/28/16 18:16 0.4 MG Ondansetron HCl (Zofran) 4 mg PRN Q6HRS PRN 12/30/16 20:15 12/30/16 20:30 4 MG Pneumococcal Polyvalent Vaccine (Do NOT chart on this placeholder) 1 each PRN 1X PRN 12/29/16 04:45 UNV Pneumococcal Polyvalent Vaccine (Pneumovax 23) 0.5 ml ONCE ONCE 12/29/16 09:00 12/29/16 09:01 DC Polyethylene Glycol (miraLAX PACKET) 17 gm PRN DAILY PRN 12/31/16 10:00 Sodium Chloride 1,000 ml @ 75 mls/hr [id number] 12/29/16 11:30 12/31/16 09:52 75 MLS/HR Throat Lozenges 1 komal 1 komal PRN Q2HRS PRN 12/29/16 18:30 12/29/16 20:28 1 [facility] Lab Laboratory Tests Test 12/30/16 16:49 12/30/16 20:54 12/31/16 02:50 12/31/16 03:45 Glucose (Fingerstick) 227mg/dL (70-99) 208mg/dL (70-99) Urine Opiates Screen Pos (NEG) Urine Methadone Screen Neg (NEG) Urine Barbiturates Neg (NEG) Urine Phencyclidine Screen Neg (NEG) Urine Amphetamine/Methamphetamine Neg (NEG) Urine Benzodiazepines Screen Neg (NEG) Urine Cocaine Screen Neg (NEG) Urine Cannabinoids Screen Neg (NEG) Urine Ethyl Alcohol Neg (NEG) Sodium Level 141mmol/L (136-145) Potassium Level 4.3mmol/L (3.5-5.1) Chloride Level 108mmol/L (98-107) Carbon Dioxide Level 24mmol/L (21-32) Anion Gap 9 (6-14) Blood Urea Nitrogen 31mg/dL (8-26) Creatinine 2.2mg/dL (0.7-1.3) Estimated GFR (Cockcroft-Gault) 36.9 Glucose Level 194mg/dL (70-99) Calcium Level 8.0mg/dL (8.5-10.1) Test 12/31/16 05:00 12/31/16 07:38 12/31/16 11:42 White Blood Count 4.0x10^3/uL (4.0-11.0) Red Blood Count 3.42x10^6/uL (4.30-5.70) Hemoglobin 9.2g/dL (13.0-17.5) Hematocrit 27.8% (39.0-53.0) Mean Corpuscular Volume 82fL (79-100) Mean Corpuscular Hemoglobin 27pg (25-35) Mean Corpuscular Hemoglobin Concent 33g/dL (31-37) Red Cell Distribution Width 14.8% (11.5-14.5) Platelet Count 107x10^3/uL (140-400) Neutrophils (%) (Auto) 75% (31-73) Lymphocytes (%) (Auto) 14% (24-48) Monocytes (%) (Auto) 10% (0-9) Eosinophils (%) (Auto) 0% (0-3) Basophils (%) (Auto) 0% (0-3) Neutrophils # (Auto) 3.0x10^3uL (1.8-7.7) Lymphocytes # (Auto) 0.6x10^3/uL (1.0-4.8) Monocytes # (Auto) 0.4x10^3/uL (0.0-1.1) Eosinophils # (Auto) 0.0x10^3/uL (0.0-0.7) Basophils # (Auto) 0.0x10^3/uL (0.0-0.2) Glucose (Fingerstick) 176mg/dL (70-99) 187mg/dL (70-99) RANGEL COWART MD Dec 31, 2016 15:41
[2016-12-31] MEDS ORDERED: MAGNESIUM SULFATE 2GM 50 ML IV PRN (15:45)
[2016-12-31 15:59] LABS: URIC ACID 5.7 mg/dL (3.5-7.2)
[2016-12-31 16:05] LABS: % SAT IRON 9 % (15-34); IRON,SERUM 14 ug/dL (65-175)
[2016-12-31] MEDS ORDERED: HYDROCODONE/APAP 5/325MG TABLET. PO PRN (17:15)
[2016-12-31 19:20] VITALS: BP 136/70
[2016-12-31 23:38] VITALS: BP 144/76
[2017-01-01] MEDS: IV 1/2 NORMAL SALINE 1,000 ML IV SCH (03:13)
[2017-01-01 03:45] VITALS: BP 150/73
[2017-01-01 05:22] LABS: ALBUMIN 1.9 g/dL (3.4-5.0); CALCIUM 7.6 mg/dL (8.5-10.1); CREATININE 2.5 mg/dL (0.7-1.3); GFR 31.8; PHOSPHORUS 4.5 mg/dL (2.6-4.7); POTASSIUM 4.5 mmol/L (3.5-5.1)
[2017-01-01 06:01] LABS: BASO % 0 % (0-3); EOS % 0 % (0-3); HEMATOCRIT 26.7 % (39.0-53.0); HEMOGLOBIN 8.7 g/dL (13.0-17.5); LYMPH # 0.7 x10^3/uL (1.0-4.8); LYMPH % 22 % (24-48); MEAN CORPUSCULAR HEMOGLOBIN 27 pg (25-35); MEAN CORPUSCULAR HGB CONC 32 g/dL (31-37); MEAN CORPUSCULAR VOLUME 83 fL (79-100); MONO % 11 % (0-9); NEUT % 67 % (31-73); PLATELET COUNT 117 x10^3/uL (140-400); RED BLOOD COUNT 3.22 x10^6/uL (4.30-5.70); RED CELL DISTRIBUTION WIDTH 14.4 % (11.5-14.5)
--- NOTE | 2017-01-01 06:56 | PDOC ---
SUBJECTIVE ROS DOMINIQUE/ CKD III feels OK overall CVS: no Orthopnea, no CP RESP: no SOB, no PUCKETT; +ve COugh GI: no Nausea, no Vomiting : no Dysuria, no Urgency OBJECTIVE Vital Signs Vital Signs Date Time Temp Pulse Resp B/P Pulse Ox O2 Delivery O2 Flow Rate FiO2 01/01/17 03:45 99.8 93 18 150/73 93 Room Air 99.8 I & 0 Intake and Output 01/01/17 06:59 Intake Total 1950 ml Output Total 1100 ml Balance 850 ml Intake Oral 900 ml IV Total 1050 ml Output Urine Total 1100 ml # Voids 2 PHYSICAL EXAM Physical Exam GEN: Awake, Oriented x 3, In no distress EYES: Vision Unchanged, Conjunctiva Normal EN: No EN Drainage, Mucous Membranes moist NECK: no JVD, no JVP, Supple, no Thyromegaly CVS: S1S2, no Murmur, No Gallop, No Rub,no Edema RESP: no Rales, no Rhonchi,no Acc. Muscle Use GI: BS + ve, NO Bruit, Non Tender, Non Distended : no CVA tenderness, no Suprapubic Tenderness DIAGNOSIS/ASSESSMENT Assessment & Plan ARF/ ATN ? : watch off IVF. Current fluid and E-lyte status does not necessitate emergent need for dialysis. Will re-evaluate for dialysis in the am. Creat continues to gradually rise. Await US and RAD. UO is acceptable ? pulm edema - ? Infection vs noncardiogenic pulm edema. still has fevers. hold IVF for nwo. UO is Acceptable ANEMIA; check Iron; may need Aranesp as ordered, Transfuse as needed; B 12 is good HTN: Current BP meds as reviewed. See orders for changes. await RAD Hypoalbuminemia - check UA, Doubt Paraproteinemia but will check for completion Constipation - Bowel regimen as ordered, No BM since Monday ? CKD III as outlined previously, ? HTNsive / NS - check US Discussed Plan of Care with family at bedside COMMENT/RELEVANT DATA Meds Current Medications Medications (Trade) Dose Ordered Sig/Jerson Start Time Stop Time Status Last Admin Dose Admin Acetaminophen (Tylenol) 500 mg PRN Q6HRS PRN 12/28/16 21:45 12/30/16 20:30 500 MG Acetaminophen/ Hydrocodone Bitart (Lortab 5/325) 1 tab PRN Q4HRS PRN 12/31/16 17:15 12/31/16 18:22 1 TAB Amlodipine Besylate (Norvasc) 10 mg DAILY 12/31/16 09:00 12/31/16 09:00 10 MG Aspirin (Fauzia Aspirin) 325 mg 1X ONCE 12/28/16 17:15 12/28/16 17:16 DC 12/28/16 17:28 325 MG Aspirin (Ecotrin) 81 mg [id number] 12/29/16 08:00 12/31/16 08:00 81 MG Ceftriaxone Sodium/Sodium Chloride (Rocephin/Iv Sodium Chloride 0.9% 50ml) 50 ml @ 100 mls/hr Q24H 12/29/16 13:00 12/31/16 12:33 100 MLS/HR Dextrose 12.5 gm PRN Q15MIN PRN 12/28/16 20:30 12/31/16 13:17 DC Dextrose 12.5 gm 12.5 gm PRN Q15MIN PRN 12/31/16 13:30 Docusate Sodium (Colace) 100 mg BID 12/31/16 11:00 12/31/16 21:18 100 MG Hydralazine HCl (Apresoline) 10 mg PRN Q4HRS PRN 12/28/16 22:00 12/30/16 23:18 10 MG Influenza Virus Vaccine Quadrival (Fluarix Quad [id number] Syringe) 0.5 ml ONCE ONCE 12/29/16 09:00 12/29/16 09:01 DC Info (Do NOT chart on this placeholder) 1 each PRN 1X PRN 12/29/16 04:45 UNV Insulin Aspart (Novolog) 0-5 UNITS TIDWMEALS 12/28/16 23:30 12/31/16 18:28 2 UNITS Levofloxacin/ Dextrose (LEVAQUIN 500mg PREMIX) 100 ml @ 100 mls/hr Q24H 12/30/16 10:00 12/31/16 10:00 100 MLS/HR Lisinopril (Prinivil) 10 mg 1X ONCE 12/28/16 20:30 12/28/16 20:33 DC 12/28/16 22:38 10 MG Lisinopril 20 mg 20 mg DAILY 12/30/16 09:00 12/31/16 09:00 20 MG Magnesium Sulfate/ Dextrose (Magnesium Sulfate PREMIX 2GM) 50 ml @ 25 mls/hr PRN DAILY PRN 12/31/16 15:45 Morphine Sulfate 2 mg PRN Q2HR PRN 12/28/16 22:00 Nitroglycerin (Nitrostat) 0.4 mg PRN Q5MIN PRN 12/28/16 17:15 12/29/16 17:14 DC 12/28/16 18:16 0.4 MG Ondansetron HCl (Zofran) 4 mg PRN Q6HRS PRN 12/30/16 20:15 12/30/16 20:30 4 MG Pneumococcal Polyvalent Vaccine (Do NOT chart on this placeholder) 1 each PRN 1X PRN 12/29/16 04:45 UNV Pneumococcal Polyvalent Vaccine (Pneumovax 23) 0.5 ml ONCE ONCE 12/29/16 09:00 12/29/16 09:01 DC Polyethylene Glycol (miraLAX PACKET) 17 gm PRN DAILY PRN 12/31/16 10:00 Sodium Chloride 1,000 ml @ 125 mls/hr Q8H 12/29/16 11:30 01/01/17 03:13 125 MLS/HR Throat Lozenges 1 komal 1 komal PRN Q2HRS PRN 12/29/16 18:30 12/29/16 20:28 1 [facility] Lab Laboratory Tests Test 12/31/16 07:38 12/31/16 11:42 12/31/16 17:01 12/31/16 20:48 Glucose (Fingerstick) 176mg/dL (70-99) 187mg/dL (70-99) 176mg/dL (70-99) 184mg/dL (70-99) Test 01/01/17 04:28 01/01/17 05:00 Sodium Level 142mmol/L (136-145) Potassium Level 4.5mmol/L (3.5-5.1) Chloride Level 110mmol/L (98-107) Carbon Dioxide Level 26mmol/L (21-32) Anion Gap 6 (6-14) Blood Urea Nitrogen 40mg/dL (8-26) Creatinine 2.5mg/dL (0.7-1.3) Estimated GFR (Cockcroft-Gault) 31.8 Glucose Level 197mg/dL (70-99) Calcium Level 7.6mg/dL (8.5-10.1) Phosphorus Level 4.5mg/dL (2.6-4.7) Albumin 1.9g/dL (3.4-5.0) White Blood Count 3.0x10^3/uL (4.0-11.0) Red Blood Count 3.22x10^6/uL (4.30-5.70) Hemoglobin 8.7g/dL (13.0-17.5) Hematocrit 26.7% (39.0-53.0) Mean Corpuscular Volume 83fL (79-100) Mean Corpuscular Hemoglobin 27pg (25-35) Mean Corpuscular Hemoglobin Concent 32g/dL (31-37) Red Cell Distribution Width 14.4% (11.5-14.5) Platelet Count 117x10^3/uL (140-400) Neutrophils (%) (Auto) 67% (31-73) Lymphocytes (%) (Auto) 22% (24-48) Monocytes (%) (Auto) 11% (0-9) Eosinophils (%) (Auto) 0% (0-3) Basophils (%) (Auto) 0% (0-3) Neutrophils # (Auto) 2.0x10^3uL (1.8-7.7) Lymphocytes # (Auto) 0.7x10^3/uL (1.0-4.8) Monocytes # (Auto) 0.3x10^3/uL (0.0-1.1) Eosinophils # (Auto) 0.0x10^3/uL (0.0-0.7) Basophils # (Auto) 0.0x10^3/uL (0.0-0.2) Magnesium Level 2.2mg/dL (1.8-2.4) RANGEL COWART MD Jan 01, 2017 06:56
--- NOTE | 2017-01-01 07:19 | PDOC ---
PROGRESS NOTES Chief Complaint Chief Complaint CC:Chest pain DOMINIQUE vs CRI; CKD stage 3 HTN Diabetes, non-controlled Chronic Anemia Hypercholesterolemia Sinusitis Fever Anemia HFpEF History of Present Illness History of Present Illness Patient seen and evaluated at bedside.No acute events overnight. Pt reports feeling better this AM, but notes some constipation. He is afebrile. Discussed with RN. Family at bedside; questions sought and answered. Vitals Vitals Vital Signs Date Time Temp Pulse Resp B/P Pulse Ox O2 Delivery O2 Flow Rate FiO2 01/01/17 03:45 99.8 93 18 150/73 93 Room Air 99.8 Physical Exam General: Alert, Oriented X3, Cooperative Heart: Regular rate, No murmurs Lungs: Clear Abdomen: Normal bowel sounds, Soft, No tenderness Extremities: No edema, Normal pulses Skin: No breakdown, No significant lesion Labs LABS Laboratory Tests Test 12/31/16 07:38 12/31/16 11:42 12/31/16 17:01 12/31/16 20:48 Glucose (Fingerstick) 176mg/dL (70-99) 187mg/dL (70-99) 176mg/dL (70-99) 184mg/dL (70-99) Test 01/01/17 04:28 01/01/17 05:00 Sodium Level 142mmol/L (136-145) Potassium Level 4.5mmol/L (3.5-5.1) Chloride Level 110mmol/L (98-107) Carbon Dioxide Level 26mmol/L (21-32) Anion Gap 6 (6-14) Blood Urea Nitrogen 40mg/dL (8-26) Creatinine 2.5mg/dL (0.7-1.3) Estimated GFR (Cockcroft-Gault) 31.8 Glucose Level 197mg/dL (70-99) Calcium Level 7.6mg/dL (8.5-10.1) Phosphorus Level 4.5mg/dL (2.6-4.7) Albumin 1.9g/dL (3.4-5.0) White Blood Count 3.0x10^3/uL (4.0-11.0) Red Blood Count 3.22x10^6/uL (4.30-5.70) Hemoglobin 8.7g/dL (13.0-17.5) Hematocrit 26.7% (39.0-53.0) Mean Corpuscular Volume 83fL (79-100) Mean Corpuscular Hemoglobin 27pg (25-35) Mean Corpuscular Hemoglobin Concent 32g/dL (31-37) Red Cell Distribution Width 14.4% (11.5-14.5) Platelet Count 117x10^3/uL (140-400) Neutrophils (%) (Auto) 67% (31-73) Lymphocytes (%) (Auto) 22% (24-48) Monocytes (%) (Auto) 11% (0-9) Eosinophils (%) (Auto) 0% (0-3) Basophils (%) (Auto) 0% (0-3) Neutrophils # (Auto) 2.0x10^3uL (1.8-7.7) Lymphocytes # (Auto) 0.7x10^3/uL (1.0-4.8) Monocytes # (Auto) 0.3x10^3/uL (0.0-1.1) Eosinophils # (Auto) 0.0x10^3/uL (0.0-0.7) Basophils # (Auto) 0.0x10^3/uL (0.0-0.2) Magnesium Level 2.2mg/dL (1.8-2.4) Review of Systems Review of Systems (+) constipation Denies fever/chills, chest pain, shortness of breath, abdominal pain, or n/v/d Assessment and Plan Assessmemt and Plan Problems Medical Problems: (1) Acute exacerbation of congestive heart failure Status: Acute (2) Uncontrolled hypertension Status: Acute Chest pain HFpEF, EF of 65-70% tricupsid regurgitation DOMINIQUE vs CRI; CKD stage 3 HTN Diabetes, non-controlled Chronic Anemia Hypercholesterolemia Sinusitis Anemia Suspected Right Renal cyst plan: continue rocephin for abx coverage, per ID follow cx; no prelminary growth on blood cultures to date Monitor AM Labs colace 100 BID for constipation; consider magnesium Citrate continue IVF, per nephro; monitor for volume overload ID, cardiology, and nephrology consult, recommendations appreciated PT/OT evaluation and recommendations Problems: Comment Review of Relevant I have reviewed the following items griselda (where applicable) has been applied. Labs Laboratory Tests Test 12/30/16 10:42 12/30/16 11:00 12/30/16 16:49 12/30/16 20:54 Glucose (Fingerstick) 226mg/dL (70-99) 227mg/dL (70-99) 208mg/dL (70-99) Lactic Acid Level 0.8mmol/L (0.4-2.0) Mycoplasma Serology (LAB) Negative (NEGATIVE) Test 12/31/16 02:50 12/31/16 03:45 12/31/16 04:05 12/31/16 05:00 Urine Opiates Screen Pos (NEG) Urine Methadone Screen Neg (NEG) Urine Barbiturates Neg (NEG) Urine Phencyclidine Screen Neg (NEG) Urine Amphetamine/Methamphetamine Neg (NEG) Urine Benzodiazepines Screen Neg (NEG) Urine Cocaine Screen Neg (NEG) Urine Cannabinoids Screen Neg (NEG) Urine Ethyl Alcohol Neg (NEG) Urine Legionella Antigen Negative (Negative) Reticulocyte Count (auto) 0.7% (0.5-2.5) Sodium Level 141mmol/L (136-145) Potassium Level 4.3mmol/L (3.5-5.1) Chloride Level 108mmol/L (98-107) Carbon Dioxide Level 24mmol/L (21-32) Anion Gap 9 (6-14) Blood Urea Nitrogen 31mg/dL (8-26) Creatinine 2.2mg/dL (0.7-1.3) Estimated GFR (Cockcroft-Gault) 36.9 Glucose Level 194mg/dL (70-99) Calcium Level 8.0mg/dL (8.5-10.1) Uric Acid 5.7mg/dL (3.5-7.2) Iron Level 14ug/dL (65-175) Total Iron Binding Capacity 161ug/dL (250-450) Iron Saturation 9% (15-34) Ferritin 323ng/mL (26-388) Creatine Kinase 268U/L (39-308) White Blood Count 4.0x10^3/uL (4.0-11.0) Red Blood Count 3.42x10^6/uL (4.30-5.70) Hemoglobin 9.2g/dL (13.0-17.5) Hematocrit 27.8% (39.0-53.0) Mean Corpuscular Volume 82fL (79-100) Mean Corpuscular Hemoglobin 27pg (25-35) Mean Corpuscular Hemoglobin Concent 33g/dL (31-37) Red Cell Distribution Width 14.8% (11.5-14.5) Platelet Count 107x10^3/uL (140-400) Neutrophils (%) (Auto) 75% (31-73) Lymphocytes (%) (Auto) 14% (24-48) Monocytes (%) (Auto) 10% (0-9) Eosinophils (%) (Auto) 0% (0-3) Basophils (%) (Auto) 0% (0-3) Neutrophils # (Auto) 3.0x10^3uL (1.8-7.7) Lymphocytes # (Auto) 0.6x10^3/uL (1.0-4.8) Monocytes # (Auto) 0.4x10^3/uL (0.0-1.1) Eosinophils # (Auto) 0.0x10^3/uL (0.0-0.7) Basophils # (Auto) 0.0x10^3/uL (0.0-0.2) Test 12/31/16 07:38 12/31/16 11:42 12/31/16 17:01 12/31/16 20:48 Glucose (Fingerstick) 176mg/dL (70-99) 187mg/dL (70-99) 176mg/dL (70-99) 184mg/dL (70-99) Test 01/01/17 04:28 01/01/17 05:00 Sodium Level 142mmol/L (136-145) Potassium Level 4.5mmol/L (3.5-5.1) Chloride Level 110mmol/L (98-107) Carbon Dioxide Level 26mmol/L (21-32) Anion Gap 6 (6-14) Blood Urea Nitrogen 40mg/dL (8-26) Creatinine 2.5mg/dL (0.7-1.3) Estimated GFR (Cockcroft-Gault) 31.8 Glucose Level 197mg/dL (70-99) Calcium Level 7.6mg/dL (8.5-10.1) Phosphorus Level 4.5mg/dL (2.6-4.7) Albumin 1.9g/dL (3.4-5.0) White Blood Count 3.0x10^3/uL (4.0-11.0) Red Blood Count 3.22x10^6/uL (4.30-5.70) Hemoglobin 8.7g/dL (13.0-17.5) Hematocrit 26.7% (39.0-53.0) Mean Corpuscular Volume 83fL (79-100) Mean Corpuscular Hemoglobin 27pg (25-35) Mean Corpuscular Hemoglobin Concent 32g/dL (31-37) Red Cell Distribution Width 14.4% (11.5-14.5) Platelet Count 117x10^3/uL (140-400) Neutrophils (%) (Auto) 67% (31-73) Lymphocytes (%) (Auto) 22% (24-48) Monocytes (%) (Auto) 11% (0-9) Eosinophils (%) (Auto) 0% (0-3) Basophils (%) (Auto) 0% (0-3) Neutrophils # (Auto) 2.0x10^3uL (1.8-7.7) Lymphocytes # (Auto) 0.7x10^3/uL (1.0-4.8) Monocytes # (Auto) 0.3x10^3/uL (0.0-1.1) Eosinophils # (Auto) 0.0x10^3/uL (0.0-0.7) Basophils # (Auto) 0.0x10^3/uL (0.0-0.2) Magnesium Level 2.2mg/dL (1.8-2.4) Laboratory Tests Test 12/31/16 07:38 12/31/16 11:42 12/31/16 17:01 12/31/16 20:48 Glucose (Fingerstick) 176mg/dL (70-99) 187mg/dL (70-99) 176mg/dL (70-99) 184mg/dL (70-99) Test 01/01/17 04:28 01/01/17 05:00 Sodium Level 142mmol/L (136-145) Potassium Level 4.5mmol/L (3.5-5.1) Chloride Level 110mmol/L (98-107) Carbon Dioxide Level 26mmol/L (21-32) Anion Gap 6 (6-14) Blood Urea Nitrogen 40mg/dL (8-26) Creatinine 2.5mg/dL (0.7-1.3) Estimated GFR (Cockcroft-Gault) 31.8 Glucose Level 197mg/dL (70-99) Calcium Level 7.6mg/dL (8.5-10.1) Phosphorus Level 4.5mg/dL (2.6-4.7) Albumin 1.9g/dL (3.4-5.0) White Blood Count 3.0x10^3/uL (4.0-11.0) Red Blood Count 3.22x10^6/uL (4.30-5.70) Hemoglobin 8.7g/dL (13.0-17.5) Hematocrit 26.7% (39.0-53.0) Mean Corpuscular Volume 83fL (79-100) Mean Corpuscular Hemoglobin 27pg (25-35) Mean Corpuscular Hemoglobin Concent 32g/dL (31-37) Red Cell Distribution Width 14.4% (11.5-14.5) Platelet Count 117x10^3/uL (140-400) Neutrophils (%) (Auto) 67% (31-73) Lymphocytes (%) (Auto) 22% (24-48) Monocytes (%) (Auto) 11% (0-9) Eosinophils (%) (Auto) 0% (0-3) Basophils (%) (Auto) 0% (0-3) Neutrophils # (Auto) 2.0x10^3uL (1.8-7.7) Lymphocytes # (Auto) 0.7x10^3/uL (1.0-4.8) Monocytes # (Auto) 0.3x10^3/uL (0.0-1.1) Eosinophils # (Auto) 0.0x10^3/uL (0.0-0.7) Basophils # (Auto) 0.0x10^3/uL (0.0-0.2) Magnesium Level 2.2mg/dL (1.8-2.4) Microbiology 12/30/16 Blood Culture - Preliminary, Resulted NO GROWTH AFTER 1 DAY 12/31/16 Gram Stain - Final, Complete Medications Current Medications Aspirin (Fauzia Aspirin) 325 mg 1X ONCE PO Last administered on 12/28/16t 17:28 ; Start 12/28/16 at 17:15; Stop 12/28/16 at 17:16; Status DC Nitroglycerin (Nitrostat) 0.4 mg PRN Q5MIN PRN SL CP RATING > 1/10 Last administered on 12/28/16 18:16; Start 12/28/16 at 17:15; Stop 12/29/16 at 17:14 ; Status DC Acetaminophen 500 mg 500 mg 1X ONCE PO Last administered on 12/28/16 18:15; Start 12/28/16 at 18:15; Stop 12/28/16 at 18:16; Status DC Magnesium Sulfate/ Dextrose (Magnesium Sulfate PREMIX 2GM) 50 ml @ 25 mls/hr 1X ONCE IV Last administered on 12/28/16 23:12; Start 12/28/16 at 20:30; Stop 12/28/16 at 22:29; Status DC Insulin Aspart (Novolog) 0-5 UNITS TIDWMEALS SQ ; Start 12/29/16 at 08:00; Stop 12/29/16 at 08:00; Status DC Dextrose 12.5 gm PRN Q15MIN PRN IV SEE COMMENTS; Start 12/28/16 at 20:30; Stop 12/31/16 at 13:17; Status DC Lisinopril (Prinivil) 10 mg DAILY PO Last administered on 12/29/16 09:55; Start 12/29/16 at 09:00; Stop 12/29/16 at 11:19; Status DC Lisinopril (Prinivil) 10 mg 1X ONCE PO Last administered on 12/28/16 22:38; Start 12/28/16 at 20:30; Stop 12/28/16 at 20:33; Status DC Morphine Sulfate 1 mg PRN Q2HR PRN IV MODERATE PAIN Last administered on 22:38; Start 12/28/16 at 21:45 Acetaminophen (Tylenol) 500 mg PRN Q6HRS PRN PO MILD PAIN / TEMP Last administered on 12/30/16 20:30; Start 12/28/16 at 21:45 Aspirin (Ecotrin) 81 mg DAILYWBKFT PO Last administered on 12/31/16 08:00; Start 12/29/16 at 08:00 Morphine Sulfate 2 mg PRN Q2HR PRN IV SEVERE PAIN; Start 12/28/16 at 22:00 Hydralazine HCl (Apresoline) 10 mg PRN Q4HRS PRN IVP ELEVATED BP, SEE COMMENTS Last administered on 12/30/16 23:18; Start 12/28/16 at 22:00 Insulin Aspart (Novolog) 0-5 UNITS TIDWMEALS SQ Last administered on 12/31/16 18:28; Start 12/28/16 at 23:30 Info (Do NOT chart on this placeholder) 1 each PRN 1X PRN MC SEE COMMENTS; Start 12/29/16 at 04:45; Status UNV Pneumococcal Polyvalent Vaccine (Do NOT chart on this placeholder) 1 each PRN 1X PRN MC SEE COMMENTS; Start 12/29/16 at 04:45; Status UNV Influenza Virus Vaccine Quadrival (Fluarix Quad [id number] Syringe) 0.5 ml ONCE ONCE VAX IM ; Start 12/29/16 at 09:00; Stop 12/29/16 at 09:01; Status DC Pneumococcal Polyvalent Vaccine (Pneumovax 23) 0.5 ml ONCE ONCE VAX IM ; Start 12/29/16 at 09:00; Stop 12/29/16 at 09:01; Status DC Lisinopril 20 mg 20 mg DAILY PO Last administered on 12/31/16 09:00; Start at 09:00 Sodium Chloride 1,000 ml @ 125 mls/hr Q8H IV Last administered on 01/01/17 03: 13; Start 12/29/16 at 11:30; Stop 01/01/17 at 06:49; Status DC Ceftriaxone Sodium/Sodium Chloride (Rocephin/Iv Sodium Chloride 0.9% 50ml) 50 ml @ 100 mls/hr Q24H IV Last administered on 12/31/16 12:33; Start 12/29/16 at 13:00 Throat Lozenges 1 gayla 1 gayla PRN Q2HRS PRN PO SORE THROAT Last administered on 20:28; Start 12/29/16 at 18:30 Levofloxacin/ Dextrose (LEVAQUIN 500mg PREMIX) 100 ml @ 100 mls/hr Q24H IV Last administered on 12/31/16 10:00; Start 12/30/16 at 10:00 Amlodipine Besylate (Norvasc) 5 mg DAILY PO Last administered on 12/30/16 18: 07; Start 12/30/16 at 15:00; Stop 12/30/16 at 18:22; Status DC Amlodipine Besylate (Norvasc) 10 mg DAILY PO Last administered on 12/31/16 09: 00; Start 12/31/16 at 09:00 Ondansetron HCl (Zofran) 4 mg PRN Q6HRS PRN IV NAUSEA/VOMITING Last administered on 12/30/16 20:30; Start 12/30/16 at 20:15 Docusate Sodium (Colace) 100 mg BID PO Last administered on 12/31/16 21:18; Start 12/31/16 at 11:00 Polyethylene Glycol (miraLAX PACKET) 17 gm PRN DAILY PRN PO CONSTIPATION; Start 12/31/16 at 10:00 Dextrose 12.5 gm 12.5 gm PRN Q15MIN PRN IV SEE COMMENTS; Start 12/31/16 at 13:30 Magnesium Sulfate/ Dextrose (Magnesium Sulfate PREMIX 2GM) 50 ml @ 25 mls/hr PRN DAILY PRN IV for Mag < 1.7 on am labs; Start 12/31/16 at 15:45 Acetaminophen/ Hydrocodone Bitart (Lortab 5/325) 1 tab PRN Q4HRS PRN PO PAIN Last administered on 12/31/16 18:22; Start 12/31/16 at 17:15 Active Scripts Active Reported Lisinopril 10 Mg Tablet 10 Mg PO DAILY Metformin Hcl 500 Mg Tablet 1 Tab PO BID Vitals/I & O Vital Sign - Last 24 Hours 12/31/16 12/31/16 12/31/16 12/31/16 07:45 08:00 09:00 09:00 Temp 101.2 101.2 Pulse 104 104 104 Resp 18 B/P 161/85 161/85 161/85 Pulse Ox 94 O2 Delivery Room Air Room Air 12/31/16 12/31/16 12/31/16 12/31/16 11:57 15:00 18:22 19:20 Temp 99.0 99.6 99.3 99.0 99.6 99.3 Pulse 96 100 94 Resp 18 17 B/P 129/77 143/67 136/70 Pulse Ox 93 97 94 O2 Delivery Room Air Room Air Room Air Room Air 12/31/16 12/31/16 12/31/16 01/01/17 19:22 20:00 23:38 03:45 Temp 99.6 99.8 99.6 99.8 Pulse 91 93 Resp 18 18 18 B/P 144/76 150/73 Pulse Ox 93 93 O2 Delivery Room Air Room Air Room Air Room Air Intake and Output 12/31/16 12/31/16 01/01/17 15:00 23:00 07:00 Intake Total 1050 ml 900 ml Output Total 300 ml 300 ml 500 ml Balance -300 ml 750 ml 400 ml Nutrition Consultation Dietary Evaluation: Recommendations by RD: Dietary education by RD, Increase Calorie Intake, Protein supplementation Comments: Educated on MNT for CHF Boost glucose control strawberry flavor TID (in place of fluids at meals) - 250kcal and 14g protein Expected Outcomes/Goals: meet >75% est nutr needs Malnutrition Findings: Food and Nutrition Intake (Mod: <75% est energy req 7days Body Fat Depletion (Non Severe: Mild Depletion Malnutrition related to morbid: No Weight Status: Appropriate CATRACHO CHIU III DO Jan 01, 2017 07:19
[2017-01-01 07:24] VITALS: BP 169/83
[2017-01-01] MEDS: ASPIRIN ENTERIC COATED 81 MG TABLET.DR. PO SCH (07:51)
[2017-01-01] MEDS: LISINOPRIL 20 MG TABLET PO SCH (07:51)
[2017-01-01] MEDS: AMLODIPINE BESYLATE 5 MG TABLET. PO SCH (07:52)
[2017-01-01] MEDS: DOCUSATE SODIUM 100 MG CAPSULE. PO SCH ×2 (07:52→20:33)
[2017-01-01] MEDS: INSULIN ASPART 300 UNITS/3 ML INSULN.PEN SQ SCH ×3 (08:03→18:36)
--- NOTE | 2017-01-01 08:43 | RAD ---
EXAM: Grayscale and color Doppler renal artery sonogram. HISTORY: Hypertension. TECHNIQUE: Grayscale and color Doppler sonographic imaging of the kidneys and renal arteries with spectral waveform analysis was performed. COMPARISON: Abdomen and pelvis CT dated 01/02/2016. FINDINGS: The right kidney measures 10.7 cm [id number] and the left kidney measures 9.5 cm [id number]. There is increased right renal parenchymal echogenicity. There is a small right renal cyst measuring 8 mm. There is no hydronephrosis. The post void bladder residual is 401 mL. The peak systolic velocity within the mid right renal artery cannot be assessed due to angulation. The peak systolic velocities within the proximal and distal right renal artery are 171 cm/s and 85 cm/s, respectively. The peak systolic velocities within the proximal, middle and distal left renal artery are 161 cm/s, 46 cm/s, 54 cm/s, respectively. IMPRESSION: 1. No Doppler evidence to suggest greater than 60% stenosis within the renal arteries. 2. Echogenic right renal parenchyma, a finding which can be seen with medical renal disease. 3. 8 mm suspected right renal cyst. 4. Post void bladder residual of 401 mL.
--- NOTE | 2017-01-01 09:03 | PDOC ---
Infectious Disease Note Subjective Subjective No fever last 24 hours Feeling better Not hungry this morning No BM 3 days ROS ROS GEN: Denies chills, sweats HEENT: Denies sore throat CV: Denies chest pain RESP: Denies shortness of air, cough GI: Denies n/v NEURO: Denies confusion, dizziness MSK: Denies weakness, joint pain/swelling Vital Sign Vital Signs Vital Signs Date Time Temp Pulse Resp B/P Pulse Ox O2 Delivery O2 Flow Rate FiO2 01/01/17 07:52 90 169/83 01/01/17 07:24 98.9 18 93 Room Air 98.9 Physical Exam PHYSICAL EXAM GENERAL: Quiet, NAD HEENT: OC/OP clear NECK: Supple, no JVD, no LN LUNGS: Diminished aeration bases, nonlabored HEART: S1S2, no gallop, no murmur ABD: Soft, NT, BS present EXT: No edema, no cyanosis SWEATBAND SHAPER: Alert, oriented x 3, no focal neurologic deficit SKIN: No rash IV: ok Labs Lab US IMPRESSION: 1. No Doppler evidence to suggest greater than 60% stenosis within the renal arteries. 2. Echogenic right renal parenchyma, a finding which can be seen with medical renal disease. 3. 8 mm suspected right renal cyst. 4. Post void bladder residual of 401 mL. Micro sputum GRAM STAIN Final WBCS MODERATE MIXED FRANCOISE FEW SQUAMOUS EPITHELIAL CELLS FEW BLOOD CULTURE Preliminary NO GROWTH AFTER 1 DAY Objective Assessment Fever - may still be a viral process Leukopenia/pancytopenia Sinusitis improving Pulmonary infection CP DM HTN DOMINIQUE. Cr increasing Constipation Plan Plan of Care Cont Rocephin. D/c Levaquin. Monitor labs/Cr/WBC BC NGTD supportive care D/w RALPH Ozuna TORCH CUTTER Jan 01, 2017 09:02 KRZYSZTOF TYLER MD Jan 01, 2017 12:12
[2017-01-01 11:00] VITALS: BP 150/79
[2017-01-01] MEDS: CEFTRIAXONE SODIUM 1 GM in IV NORMAL SALINE 50ML 50 ML IV SCH (13:21)
[2017-01-01] MEDS ORDERED: BISACODYL 10 MG SUPP.RECT. PR ONE (15:00)
[2017-01-01 16:00] VITALS: BP 161/85
[2017-01-01 19:15] VITALS: BP 144/66
[2017-01-01] MEDS ORDERED: INSU100I27 SQ (20:30)
[2017-01-01] MEDS ORDERED: LOSA25TA4 PO (20:31)
[2017-01-01] MEDS: LIDOCAINE (700MG/PATCH) PATCH. TD SCH (20:33)
[2017-01-01] MEDS ORDERED: INSULIN DETEMIR 300 UNITS/3 ML INSULN.PEN. SQ SCH (21:00)
[2017-01-01 23:20] VITALS: BP 148/76
[2017-01-02 03:30] VITALS: BP 171/68
[2017-01-02 04:00] LABS: BASO % 0 % (0-3); EOS % 1 % (0-3); HEMATOCRIT 29.7 % (39.0-53.0); HEMOGLOBIN 9.6 g/dL (13.0-17.5); LYMPH # 0.5 x10^3/uL (1.0-4.8); LYMPH % 16 % (24-48); MEAN CORPUSCULAR HEMOGLOBIN 27 pg (25-35); MEAN CORPUSCULAR HGB CONC 32 g/dL (31-37); MEAN CORPUSCULAR VOLUME 83 fL (79-100); MONO % 13 % (0-9); NEUT % 71 % (31-73); PLATELET COUNT 129 x10^3/uL (140-400); RED BLOOD COUNT 3.59 x10^6/uL (4.30-5.70); RED CELL DISTRIBUTION WIDTH 14.8 % (11.5-14.5); WHITE BLOOD COUNT 3.2 x10^3/uL (4.0-11.0)
[2017-01-02 04:23] LABS: ALBUMIN 2.1 g/dL (3.4-5.0); CALCIUM 7.8 mg/dL (8.5-10.1); CREATININE 2.5 mg/dL (0.7-1.3); GFR 31.8; PHOSPHORUS 4.2 mg/dL (2.6-4.7); POTASSIUM 3.5 mmol/L (3.5-5.1)
[2017-01-02 07:47] VITALS: BP 175/81
[2017-01-02] MEDS: INSULIN ASPART 300 UNITS/3 ML INSULN.PEN SQ SCH ×2 (08:00→12:00)
--- NOTE | 2017-01-02 09:32 | PDOC ---
Infectious Disease Note Subjective Subjective Cont to feel better but still a little cold Less sinus but still cough Appetite is better and less aches ROS ROS GEN: Denies fevers, chills, sweats HEENT: Denies blurred vision, sore throat CV: Denies chest pain RESP: Denies shortness of air, cough GI: Denies n/v/d NEURO: Denies confusion, dizziness MSK: Denies weakness, joint pain/swelling Vital Sign Vital Signs Vital Signs Date Time Temp Pulse Resp B/P Pulse Ox O2 Delivery O2 Flow Rate FiO2 01/02/17 08:00 Room Air 01/02/17 07:47 99.8 98 20 175/81 93 99.8 Physical Exam PHYSICAL EXAM GENERAL: NAD, Alert, pleasant but under multiple blankets HEENT: PERRL, OC/OP -clear NECK: Supple, no JVD, no LN LUNGS: Clear HEART: S1S2, no gallop, no murmur ABD: Soft, NT, no organomegaly, no rebound EXT: No edema, no cyanosis WEBSITE DESIGNER: Alert, oriented x 3, no focal neurologic deficit SKIN: No rash/warm IV: ok Labs Lab Laboratory Tests Test 01/01/17 12:05 01/01/17 16:43 01/02/17 03:40 01/02/17 07:56 Glucose (Fingerstick) 109mg/dL (70-99) 183mg/dL (70-99) 76mg/dL (70-99) White Blood Count 3.2x10^3/uL (4.0-11.0) Red Blood Count 3.59x10^6/uL (4.30-5.70) Hemoglobin 9.6g/dL (13.0-17.5) Hematocrit 29.7% (39.0-53.0) Mean Corpuscular Volume 83fL (79-100) Mean Corpuscular Hemoglobin 27pg (25-35) Mean Corpuscular Hemoglobin Concent 32g/dL (31-37) Red Cell Distribution Width 14.8% (11.5-14.5) Platelet Count 129x10^3/uL (140-400) Neutrophils (%) (Auto) 71% (31-73) Lymphocytes (%) (Auto) 16% (24-48) Monocytes (%) (Auto) 13% (0-9) Eosinophils (%) (Auto) 1% (0-3) Basophils (%) (Auto) 0% (0-3) Neutrophils # (Auto) 2.3x10^3uL (1.8-7.7) Lymphocytes # (Auto) 0.5x10^3/uL (1.0-4.8) Monocytes # (Auto) 0.4x10^3/uL (0.0-1.1) Eosinophils # (Auto) 0.0x10^3/uL (0.0-0.7) Basophils # (Auto) 0.0x10^3/uL (0.0-0.2) Sodium Level 145mmol/L (136-145) Potassium Level 3.5mmol/L (3.5-5.1) Chloride Level 111mmol/L (98-107) Carbon Dioxide Level 26mmol/L (21-32) Anion Gap 8 (6-14) Blood Urea Nitrogen 40mg/dL (8-26) Creatinine 2.5mg/dL (0.7-1.3) Estimated GFR (Cockcroft-Gault) 31.8 Glucose Level 48mg/dL (70-99) Calcium Level 7.8mg/dL (8.5-10.1) Phosphorus Level 4.2mg/dL (2.6-4.7) Magnesium Level 2.3mg/dL (1.8-2.4) Albumin 2.1g/dL (3.4-5.0) Objective Assessment Fever - may still be a viral process Leukopenia/pancytopenia - improving Sinusitis improving Pulmonary infection CP DM HTN DOMINIQUE. Cr - stable Constipation Plan Plan of Care Cont Rocephin. Monitor labs/Cr/WBC Repeat procalcitonin F/u further renal w/u supportive care D/w family KRZYSZTOF TYLER MD Jan 02, 2017 09:32
--- NOTE | 2017-01-02 09:44 | PDOC ---
SUBJECTIVE ROS DOMINIQUE/ CKD III doign and feeling better this am CVS: no Orthopnea, no CP RESP: no SOB, no PUCKETT GI: no Nausea, no Vomiting : no Dysuria, no Urgency OBJECTIVE Vital Signs Vital Signs Date Time Temp Pulse Resp B/P Pulse Ox O2 Delivery O2 Flow Rate FiO2 01/02/17 08:00 Room Air 01/02/17 07:47 99.8 98 20 175/81 93 99.8 I & 0 Intake and Output 01/02/17 06:59 Intake Total 540 ml Output Total 400 ml Balance 140 ml Intake Oral 540 ml Output Urine Total 400 ml # Bowel Movements 1 PHYSICAL EXAM Physical Exam GEN: Awake, Oriented x 3, In no distress EYES: Vision Unchanged, Conjunctiva Normal EN: No EN Drainage, Mucous Membranes moist NECK: no JVD, no JVP, Supple, no Thyromegaly CVS: S1S2, no Murmur, No Gallop, No Rub,no Edema RESP: no Rales, no Rhonchi,no Acc. Muscle Use GI: BS + ve, NO Bruit, Non Tender, Non Distended : no CVA tenderness, no Suprapubic Tenderness DIAGNOSIS/ASSESSMENT Assessment & Plan ARF/ ATN ? : watch off IVF. Current fluid and E-lyte status does not necessitate emergent need for dialysis. Will re-evaluate for dialysis in the am. Creat continues to gradually rise. Await US and RAD. UO is acceptable ? pulm edema - ? Infection vs noncardiogenic pulm edema. still has fevers. hold IVF for nwo. UO is Acceptable, No Obvious SE is noted on RAD. ANEMIA; (Fe def) IV Iron as ordered; may need Aranesp as ordered, Transfuse as needed; B 12 is good HTN: Current BP meds as reviewed. See orders for changes. ? Small vs dz Hypoalbuminemia - checking UA (none done since sat), Doubt Paraproteinemia but will check for completion ? CKD III as outlined previously, ?Dm/ HTNsive / NS - await US Discussed Plan of Care with family at bedside Will need OP F/up with us COMMENT/RELEVANT DATA Meds Current Medications Medications (Trade) Dose Ordered Sig/Jerson Start Time Stop Time Status Last Admin Dose Admin Acetaminophen (Tylenol) 500 mg PRN Q6HRS PRN 12/28/16 21:45 12/30/16 20:30 500 MG Acetaminophen/ Hydrocodone Bitart (Lortab 5/325) 1 tab PRN Q4HRS PRN 12/31/16 17:15 12/31/16 18:22 1 TAB Amlodipine Besylate (Norvasc) 10 mg DAILY 12/31/16 09:00 01/01/17 07:52 10 MG Aspirin (Fauzia Aspirin) 325 mg 1X ONCE 12/28/16 17:15 12/28/16 17:16 DC 12/28/16 17:28 325 MG Aspirin (Ecotrin) 81 mg [id number] 12/29/16 08:00 01/01/17 07:51 81 MG Bisacodyl (Dulcolax Supp) 10 mg 1X ONCE 01/01/17 15:00 01/01/17 15:01 DC 01/01/17 15:00 10 MG Ceftriaxone Sodium/Sodium Chloride (Rocephin/Iv Sodium Chloride 0.9% 50ml) 50 ml @ 100 mls/hr Q24H 12/29/16 13:00 01/01/17 13:21 100 MLS/HR Dextrose 12.5 gm PRN Q15MIN PRN 12/28/16 20:30 12/31/16 13:17 DC Dextrose 12.5 gm 12.5 gm PRN Q15MIN PRN 12/31/16 13:30 Docusate Sodium (Colace) 100 mg BID 12/31/16 11:00 01/01/17 07:52 100 MG Hydralazine HCl (Apresoline) 10 mg PRN Q4HRS PRN 12/28/16 22:00 12/30/16 23:18 10 MG Influenza Virus Vaccine Quadrival (Fluarix Quad [id number] Syringe) 0.5 ml ONCE ONCE 12/29/16 09:00 12/29/16 09:01 DC Info (Do NOT chart on this placeholder) 1 each PRN 1X PRN 12/29/16 04:45 UNV Insulin Aspart (Novolog) 0-5 UNITS TIDWMEALS 12/28/16 23:30 01/01/17 18:36 2 UNITS Insulin Detemir (Levemir) 20 units QHS 01/01/17 21:00 01/01/17 21:55 20 UNITS Levofloxacin/ Dextrose (LEVAQUIN 500mg PREMIX) 100 ml @ 100 mls/hr Q24H 12/30/16 10:00 01/01/17 09:09 DC 12/31/16 10:00 100 MLS/HR Lidocaine (Lidoderm) 1 patch DAILY 01/01/17 20:30 01/01/17 20:33 1 PATCH Lisinopril (Prinivil) 10 mg 1X ONCE 12/28/16 20:30 12/28/16 20:33 DC 12/28/16 22:38 10 MG Lisinopril 20 mg 20 mg DAILY 12/30/16 09:00 01/01/17 07:51 20 MG Magnesium Sulfate/ Dextrose (Magnesium Sulfate PREMIX 2GM) 50 ml @ 25 mls/hr PRN DAILY PRN 12/31/16 15:45 Morphine Sulfate 2 mg PRN Q2HR PRN 12/28/16 22:00 Nitroglycerin (Nitrostat) 0.4 mg PRN Q5MIN PRN 12/28/16 17:15 12/29/16 17:14 DC 12/28/16 18:16 0.4 MG Ondansetron HCl (Zofran) 4 mg PRN Q6HRS PRN 12/30/16 20:15 12/30/16 20:30 4 MG Pneumococcal Polyvalent Vaccine (Do NOT chart on this placeholder) 1 each PRN 1X PRN 12/29/16 04:45 UNV Pneumococcal Polyvalent Vaccine (Pneumovax 23) 0.5 ml ONCE ONCE 12/29/16 09:00 12/29/16 09:01 DC Polyethylene Glycol (miraLAX PACKET) 17 gm PRN DAILY PRN 12/31/16 10:00 01/01/17 13:20 17 GM Sodium Chloride 1,000 ml @ 125 mls/hr Q8H 12/29/16 11:30 01/01/17 06:49 DC 01/01/17 03:13 125 MLS/HR Throat Lozenges 1 komal 1 komal PRN Q2HRS PRN 12/29/16 18:30 12/29/16 20:28 1 KOMAL Lab Laboratory Tests Test 01/01/17 12:05 01/01/17 16:43 01/02/17 03:40 01/02/17 07:56 Glucose (Fingerstick) 109mg/dL (70-99) 183mg/dL (70-99) 76mg/dL (70-99) White Blood Count 3.2x10^3/uL (4.0-11.0) Red Blood Count 3.59x10^6/uL (4.30-5.70) Hemoglobin 9.6g/dL (13.0-17.5) Hematocrit 29.7% (39.0-53.0) Mean Corpuscular Volume 83fL (79-100) Mean Corpuscular Hemoglobin 27pg (25-35) Mean Corpuscular Hemoglobin Concent 32g/dL (31-37) Red Cell Distribution Width 14.8% (11.5-14.5) Platelet Count 129x10^3/uL (140-400) Neutrophils (%) (Auto) 71% (31-73) Lymphocytes (%) (Auto) 16% (24-48) Monocytes (%) (Auto) 13% (0-9) Eosinophils (%) (Auto) 1% (0-3) Basophils (%) (Auto) 0% (0-3) Neutrophils # (Auto) 2.3x10^3uL (1.8-7.7) Lymphocytes # (Auto) 0.5x10^3/uL (1.0-4.8) Monocytes # (Auto) 0.4x10^3/uL (0.0-1.1) Eosinophils # (Auto) 0.0x10^3/uL (0.0-0.7) Basophils # (Auto) 0.0x10^3/uL (0.0-0.2) Sodium Level 145mmol/L (136-145) Potassium Level 3.5mmol/L (3.5-5.1) Chloride Level 111mmol/L (98-107) Carbon Dioxide Level 26mmol/L (21-32) Anion Gap 8 (6-14) Blood Urea Nitrogen 40mg/dL (8-26) Creatinine 2.5mg/dL (0.7-1.3) Estimated GFR (Cockcroft-Gault) 31.8 Glucose Level 48mg/dL (70-99) Calcium Level 7.8mg/dL (8.5-10.1) Phosphorus Level 4.2mg/dL (2.6-4.7) Magnesium Level 2.3mg/dL (1.8-2.4) Albumin 2.1g/dL (3.4-5.0) RANGEL COWART MD Jan 02, 2017 09:44
[2017-01-02] MEDS: AMLODIPINE BESYLATE 5 MG TABLET. PO SCH (09:56)
[2017-01-02] MEDS: ASPIRIN ENTERIC COATED 81 MG TABLET.DR. PO SCH (09:57)
[2017-01-02] MEDS: LISINOPRIL 20 MG TABLET PO SCH (09:57)
[2017-01-02] MEDS: DOCUSATE SODIUM 100 MG CAPSULE. PO SCH (09:58)
[2017-01-02] MEDS: LIDOCAINE (700MG/PATCH) PATCH. TD SCH (09:58)
[2017-01-02] MEDS ORDERED: POTASSIUM CHLORIDE 20 MEQ TABLET.ER. PO ONE (10:45)
[2017-01-02] MEDS ORDERED: LISINOPRIL 20 MG TABLET PO SCH (11:00)
[2017-01-02] MEDS ORDERED: IRON SUCROSE COMPLEX 200 MG in IV NORMAL SALINE 100ML 100 ML IV SCH (11:00)
--- NOTE | 2017-01-02 11:05 | PDOC3 ---
Discharge Summary Visit Information Date of Admission: Dec 28, 2016 Date of Discharge: Jan 02, 2017 Admitting Diagnosis Comment: DOMINIQUE vs CRI; CKD stage 3 HTN Diabetes, non-controlled Chronic Anemia Hypercholesterolemia Sinusitis Fever Anemia HFpEF Final Diagnosis Problems Medical Problems: (1) Acute exacerbation of congestive heart failure Status: Acute (2) CHF (congestive heart failure), NYHA class III Status: Acute (3) Uncontrolled hypertension Status: Acute Brief Hospital Course Allergies Allergies Coded Allergies Type Severity Reaction Last Updated Verified No Known Drug Allergies 01/01/16 No Vital Signs Vital Signs Date Time Temp Pulse Resp B/P Pulse Ox O2 Delivery O2 Flow Rate FiO2 01/02/17 09:57 98 175/81 01/02/17 08:00 Room Air 01/02/17 07:47 99.8 20 93 99.8 Lab Results Laboratory Tests Test 12/31/16 11:42 12/31/16 17:01 12/31/16 20:48 01/01/17 04:28 Glucose (Fingerstick) 187mg/dL (70-99) 176mg/dL (70-99) 184mg/dL (70-99) Sodium Level 142mmol/L (136-145) Potassium Level 4.5mmol/L (3.5-5.1) Chloride Level 110mmol/L (98-107) Carbon Dioxide Level 26mmol/L (21-32) Anion Gap 6 (6-14) Blood Urea Nitrogen 40mg/dL (8-26) Creatinine 2.5mg/dL (0.7-1.3) Estimated GFR (Cockcroft-Gault) 31.8 Glucose Level 197mg/dL (70-99) Calcium Level 7.6mg/dL (8.5-10.1) Phosphorus Level 4.5mg/dL (2.6-4.7) Albumin 1.9g/dL (3.4-5.0) Test 01/01/17 05:00 01/01/17 07:33 01/01/17 12:05 01/01/17 16:43 White Blood Count 3.0x10^3/uL (4.0-11.0) Red Blood Count 3.22x10^6/uL (4.30-5.70) Hemoglobin 8.7g/dL (13.0-17.5) Hematocrit 26.7% (39.0-53.0) Mean Corpuscular Volume 83fL (79-100) Mean Corpuscular Hemoglobin 27pg (25-35) Mean Corpuscular Hemoglobin Concent 32g/dL (31-37) Red Cell Distribution Width 14.4% (11.5-14.5) Platelet Count 117x10^3/uL (140-400) Neutrophils (%) (Auto) 67% (31-73) Lymphocytes (%) (Auto) 22% (24-48) Monocytes (%) (Auto) 11% (0-9) Eosinophils (%) (Auto) 0% (0-3) Basophils (%) (Auto) 0% (0-3) Neutrophils # (Auto) 2.0x10^3uL (1.8-7.7) Lymphocytes # (Auto) 0.7x10^3/uL (1.0-4.8) Monocytes # (Auto) 0.3x10^3/uL (0.0-1.1) Eosinophils # (Auto) 0.0x10^3/uL (0.0-0.7) Basophils # (Auto) 0.0x10^3/uL (0.0-0.2) Magnesium Level 2.2mg/dL (1.8-2.4) Glucose (Fingerstick) 184mg/dL (70-99) 109mg/dL (70-99) 183mg/dL (70-99) Test 01/02/17 03:40 01/02/17 07:56 White Blood Count 3.2x10^3/uL (4.0-11.0) Red Blood Count 3.59x10^6/uL (4.30-5.70) Hemoglobin 9.6g/dL (13.0-17.5) Hematocrit 29.7% (39.0-53.0) Mean Corpuscular Volume 83fL (79-100) Mean Corpuscular Hemoglobin 27pg (25-35) Mean Corpuscular Hemoglobin Concent 32g/dL (31-37) Red Cell Distribution Width 14.8% (11.5-14.5) Platelet Count 129x10^3/uL (140-400) Neutrophils (%) (Auto) 71% (31-73) Lymphocytes (%) (Auto) 16% (24-48) Monocytes (%) (Auto) 13% (0-9) Eosinophils (%) (Auto) 1% (0-3) Basophils (%) (Auto) 0% (0-3) Neutrophils # (Auto) 2.3x10^3uL (1.8-7.7) Lymphocytes # (Auto) 0.5x10^3/uL (1.0-4.8) Monocytes # (Auto) 0.4x10^3/uL (0.0-1.1) Eosinophils # (Auto) 0.0x10^3/uL (0.0-0.7) Basophils # (Auto) 0.0x10^3/uL (0.0-0.2) Sodium Level 145mmol/L (136-145) Potassium Level 3.5mmol/L (3.5-5.1) Chloride Level 111mmol/L (98-107) Carbon Dioxide Level 26mmol/L (21-32) Anion Gap 8 (6-14) Blood Urea Nitrogen 40mg/dL (8-26) Creatinine 2.5mg/dL (0.7-1.3) Estimated GFR (Cockcroft-Gault) 31.8 Glucose Level 48mg/dL (70-99) Calcium Level 7.8mg/dL (8.5-10.1) Phosphorus Level 4.2mg/dL (2.6-4.7) Magnesium Level 2.3mg/dL (1.8-2.4) Albumin 2.1g/dL (3.4-5.0) Glucose (Fingerstick) 76mg/dL (70-99) Laboratory Tests Test 01/01/17 12:05 01/01/17 16:43 01/02/17 03:40 01/02/17 07:56 Glucose (Fingerstick) 109mg/dL (70-99) 183mg/dL (70-99) 76mg/dL (70-99) White Blood Count 3.2x10^3/uL (4.0-11.0) Red Blood Count 3.59x10^6/uL (4.30-5.70) Hemoglobin 9.6g/dL (13.0-17.5) Hematocrit 29.7% (39.0-53.0) Mean Corpuscular Volume 83fL (79-100) Mean Corpuscular Hemoglobin 27pg (25-35) Mean Corpuscular Hemoglobin Concent 32g/dL (31-37) Red Cell Distribution Width 14.8% (11.5-14.5) Platelet Count 129x10^3/uL (140-400) Neutrophils (%) (Auto) 71% (31-73) Lymphocytes (%) (Auto) 16% (24-48) Monocytes (%) (Auto) 13% (0-9) Eosinophils (%) (Auto) 1% (0-3) Basophils (%) (Auto) 0% (0-3) Neutrophils # (Auto) 2.3x10^3uL (1.8-7.7) Lymphocytes # (Auto) 0.5x10^3/uL (1.0-4.8) Monocytes # (Auto) 0.4x10^3/uL (0.0-1.1) Eosinophils # (Auto) 0.0x10^3/uL (0.0-0.7) Basophils # (Auto) 0.0x10^3/uL (0.0-0.2) Sodium Level 145mmol/L (136-145) Potassium Level 3.5mmol/L (3.5-5.1) Chloride Level 111mmol/L (98-107) Carbon Dioxide Level 26mmol/L (21-32) Anion Gap 8 (6-14) Blood Urea Nitrogen 40mg/dL (8-26) Creatinine 2.5mg/dL (0.7-1.3) Estimated GFR (Cockcroft-Gault) 31.8 Glucose Level 48mg/dL (70-99) Calcium Level 7.8mg/dL (8.5-10.1) Phosphorus Level 4.2mg/dL (2.6-4.7) Magnesium Level 2.3mg/dL (1.8-2.4) Albumin 2.1g/dL (3.4-5.0) Brief Hospital Course Mr. Tidwell is a 61 old [AA male admitted for ow grade temps and DOMINIQUE on CKD stage 3, co managed with ID and renal and also cards - was admitted on cardiac fllor for "ckF". Echo shows preserved systlic fcn and crads was following only peripherally. CRea ranges from 1.5-2.5. STable at 2.5 ID work up for feevers are neg. Neg flu, nex CXR,UA still pending Was on IV rocpehin in house, To dc on PO cefpodoxime x 7 days Dw renal and ID and RN Pt seen and examined with family Discharge Information Condition at Discharge: Improved, Stable Follow Up: Weeks (1 month renal) Disposition/Orders: D/C to Home, D/C to Home w/ HH Scheduled Insulin Detemir (Levemir Flextouch) 20 UNIT SQ HS (Reported) Lisinopril (Lisinopril) 10 MG PO DAILY (Reported) Losartan Potassium (Losartan Potassium) 25 MG PO DAILY (Reported) Metformin Hcl (Metformin Hcl) 1 TAB PO BID (Reported) ALLIE PALOMINO MD Jan 02, 2017 11:05
[2017-01-02] MEDS ORDERED: FERR-26 PO (11:11)
[2017-01-02] MEDS ORDERED: AMLO10TA4 PO (11:11)
[2017-01-02] MEDS ORDERED: TAMS0.4C97 PO (11:11)
[2017-01-02] MEDS ORDERED: ASPI-482 PO (11:11)
[2017-01-02] MEDS ORDERED: LISI40TA PO (11:11)
--- NOTE | 2017-01-02 11:13 | PDOC3 ---
Discharge Summary Visit Information Date of Admission: Dec 28, 2016 Date of Discharge: Jan 02, 2017 Admitting Diagnosis Comment: DOMINIQUE vs CRI; CKD stage 3 HTN Diabetes, non-controlled Chronic Anemia Hypercholesterolemia Sinusitis Fever Anemia HFpEF Final Diagnosis Problems Medical Problems: (1) Acute exacerbation of congestive heart failure Status: Acute (2) CHF (congestive heart failure), NYHA class III Status: Acute (3) Uncontrolled hypertension Status: Acute Brief Hospital Course Allergies Allergies Coded Allergies Type Severity Reaction Last Updated Verified No Known Drug Allergies 01/01/16 No Vital Signs Vital Signs Date Time Temp Pulse Resp B/P Pulse Ox O2 Delivery O2 Flow Rate FiO2 01/02/17 09:57 98 175/81 01/02/17 08:00 Room Air 01/02/17 07:47 99.8 20 93 99.8 Lab Results Laboratory Tests Test 12/31/16 11:42 12/31/16 17:01 12/31/16 20:48 01/01/17 04:28 Glucose (Fingerstick) 187mg/dL (70-99) 176mg/dL (70-99) 184mg/dL (70-99) Sodium Level 142mmol/L (136-145) Potassium Level 4.5mmol/L (3.5-5.1) Chloride Level 110mmol/L (98-107) Carbon Dioxide Level 26mmol/L (21-32) Anion Gap 6 (6-14) Blood Urea Nitrogen 40mg/dL (8-26) Creatinine 2.5mg/dL (0.7-1.3) Estimated GFR (Cockcroft-Gault) 31.8 Glucose Level 197mg/dL (70-99) Calcium Level 7.6mg/dL (8.5-10.1) Phosphorus Level 4.5mg/dL (2.6-4.7) Albumin 1.9g/dL (3.4-5.0) Test 01/01/17 05:00 01/01/17 07:33 01/01/17 12:05 01/01/17 16:43 White Blood Count 3.0x10^3/uL (4.0-11.0) Red Blood Count 3.22x10^6/uL (4.30-5.70) Hemoglobin 8.7g/dL (13.0-17.5) Hematocrit 26.7% (39.0-53.0) Mean Corpuscular Volume 83fL (79-100) Mean Corpuscular Hemoglobin 27pg (25-35) Mean Corpuscular Hemoglobin Concent 32g/dL (31-37) Red Cell Distribution Width 14.4% (11.5-14.5) Platelet Count 117x10^3/uL (140-400) Neutrophils (%) (Auto) 67% (31-73) Lymphocytes (%) (Auto) 22% (24-48) Monocytes (%) (Auto) 11% (0-9) Eosinophils (%) (Auto) 0% (0-3) Basophils (%) (Auto) 0% (0-3) Neutrophils # (Auto) 2.0x10^3uL (1.8-7.7) Lymphocytes # (Auto) 0.7x10^3/uL (1.0-4.8) Monocytes # (Auto) 0.3x10^3/uL (0.0-1.1) Eosinophils # (Auto) 0.0x10^3/uL (0.0-0.7) Basophils # (Auto) 0.0x10^3/uL (0.0-0.2) Magnesium Level 2.2mg/dL (1.8-2.4) Glucose (Fingerstick) 184mg/dL (70-99) 109mg/dL (70-99) 183mg/dL (70-99) Test 01/02/17 03:40 01/02/17 07:56 White Blood Count 3.2x10^3/uL (4.0-11.0) Red Blood Count 3.59x10^6/uL (4.30-5.70) Hemoglobin 9.6g/dL (13.0-17.5) Hematocrit 29.7% (39.0-53.0) Mean Corpuscular Volume 83fL (79-100) Mean Corpuscular Hemoglobin 27pg (25-35) Mean Corpuscular Hemoglobin Concent 32g/dL (31-37) Red Cell Distribution Width 14.8% (11.5-14.5) Platelet Count 129x10^3/uL (140-400) Neutrophils (%) (Auto) 71% (31-73) Lymphocytes (%) (Auto) 16% (24-48) Monocytes (%) (Auto) 13% (0-9) Eosinophils (%) (Auto) 1% (0-3) Basophils (%) (Auto) 0% (0-3) Neutrophils # (Auto) 2.3x10^3uL (1.8-7.7) Lymphocytes # (Auto) 0.5x10^3/uL (1.0-4.8) Monocytes # (Auto) 0.4x10^3/uL (0.0-1.1) Eosinophils # (Auto) 0.0x10^3/uL (0.0-0.7) Basophils # (Auto) 0.0x10^3/uL (0.0-0.2) Sodium Level 145mmol/L (136-145) Potassium Level 3.5mmol/L (3.5-5.1) Chloride Level 111mmol/L (98-107) Carbon Dioxide Level 26mmol/L (21-32) Anion Gap 8 (6-14) Blood Urea Nitrogen 40mg/dL (8-26) Creatinine 2.5mg/dL (0.7-1.3) Estimated GFR (Cockcroft-Gault) 31.8 Glucose Level 48mg/dL (70-99) Calcium Level 7.8mg/dL (8.5-10.1) Phosphorus Level 4.2mg/dL (2.6-4.7) Magnesium Level 2.3mg/dL (1.8-2.4) Albumin 2.1g/dL (3.4-5.0) Procalcitonin 0.15ng/mL (0.00-0.10) Glucose (Fingerstick) 76mg/dL (70-99) Laboratory Tests Test 01/01/17 12:05 01/01/17 16:43 01/02/17 03:40 01/02/17 07:56 Glucose (Fingerstick) 109mg/dL (70-99) 183mg/dL (70-99) 76mg/dL (70-99) White Blood Count 3.2x10^3/uL (4.0-11.0) Red Blood Count 3.59x10^6/uL (4.30-5.70) Hemoglobin 9.6g/dL (13.0-17.5) Hematocrit 29.7% (39.0-53.0) Mean Corpuscular Volume 83fL (79-100) Mean Corpuscular Hemoglobin 27pg (25-35) Mean Corpuscular Hemoglobin Concent 32g/dL (31-37) Red Cell Distribution Width 14.8% (11.5-14.5) Platelet Count 129x10^3/uL (140-400) Neutrophils (%) (Auto) 71% (31-73) Lymphocytes (%) (Auto) 16% (24-48) Monocytes (%) (Auto) 13% (0-9) Eosinophils (%) (Auto) 1% (0-3) Basophils (%) (Auto) 0% (0-3) Neutrophils # (Auto) 2.3x10^3uL (1.8-7.7) Lymphocytes # (Auto) 0.5x10^3/uL (1.0-4.8) Monocytes # (Auto) 0.4x10^3/uL (0.0-1.1) Eosinophils # (Auto) 0.0x10^3/uL (0.0-0.7) Basophils # (Auto) 0.0x10^3/uL (0.0-0.2) Sodium Level 145mmol/L (136-145) Potassium Level 3.5mmol/L (3.5-5.1) Chloride Level 111mmol/L (98-107) Carbon Dioxide Level 26mmol/L (21-32) Anion Gap 8 (6-14) Blood Urea Nitrogen 40mg/dL (8-26) Creatinine 2.5mg/dL (0.7-1.3) Estimated GFR (Cockcroft-Gault) 31.8 Glucose Level 48mg/dL (70-99) Calcium Level 7.8mg/dL (8.5-10.1) Phosphorus Level 4.2mg/dL (2.6-4.7) Magnesium Level 2.3mg/dL (1.8-2.4) Albumin 2.1g/dL (3.4-5.0) Procalcitonin 0.15ng/mL (0.00-0.10) Brief Hospital Course Mr. Tidwell is a 61 old [sex] who presented with [ ] Discharge Information Condition at Discharge: Improved, Stable Follow Up: Weeks (1 mo with renal) Disposition/Orders: D/C to Home Scheduled Amlodipine Besylate (Norvasc) 10 MG PO DAILY Aspirin (Aspir 81) 1 TAB PO DAILY Ferrous Sulfate (Ferrous Sulfate) 1 TAB PO DAILY Insulin Detemir (Levemir Flextouch) 20 UNIT SQ HS (Reported) Lisinopril (Lisinopril) 10 MG PO DAILY (Reported) Lisinopril (Lisinopril) 1 TAB PO DAILY Losartan Potassium (Losartan Potassium) 25 MG PO DAILY (Reported) Metformin Hcl (Metformin Hcl) 1 TAB PO BID (Reported) Tamsulosin Hcl (Flomax) 1 CAP PO DAILY ALLIE PALOMINO MD Jan 02, 2017 11:12
[2017-01-02] MEDS ORDERED: CEFP200T PO (11:21)
[2017-01-02 12:16] VITALS: BP 175/87
[2017-01-02] MEDS: CEFTRIAXONE SODIUM 1 GM in IV NORMAL SALINE 50ML 50 ML IV SCH (12:19)
[2017-01-02 13:30] LABS: BILIRUBIN,URINE NEGATIVE (NEG); GLUCOSE,URINE NEGATIVE (NEG); NITRITE,URINE NEGATIVE (NEG); PH,URINE 5.5; PROTEIN,URINE >=300 mg/dL (NEG-TRACE); UROBILINOGEN,URINE 0.2 mg/dL (0.2 mg/dL)
[2017-01-02 13:49] LABS: BACTERIA,URINE FEW /HPF (0-FEW); RBC,URINE OCC /HPF (0-2); SQUAMOUS EPITHELIAL CELL,UR FEW /LPF
[2017-01-02 14:30] LABS: KAPPA LAMBDA RATIO 3.26 (0.26-1.65)
[2017-01-02] MEDS ORDERED: TAMSULOSIN 0.4 MG CAP.ER.24H. PO SCH (21:00)
[2017-01-03 02:13] LABS: UR PROTEIN RD 496.2 mg/dL (Not Estab.)
[2017-01-03 14:28] LABS: ALPHA 1 0.2 g/dL (0.0-0.4); ALPHA 2 0.6 g/dL (0.4-1.0); BETA 0.7 g/dL (0.7-1.3); GAMMA 0.7 g/dL (0.4-1.8); M-SPIKE Not Observed g/dL (Not Observed); PROTEIN TOTAL 4.7 g/dL (6.0-8.5)
[2017-01-03 18:15] LABS: IMMUNOGLOBULIN A 184 mg/dL (61-437); IMMUNOGLOBULIN G 806 mg/dL (700-1600); IMMUNOGLOBULIN M 35 mg/dL (20-172)
== END 2017-01-02 15:30 | disposition home or self-care (01) | DRG 682 ==
LOC: ER 16:34 → 2 NORTH 18:00
PROVIDERS: ADMIT Internal Medicine Hematology & Oncology; ATTEND Internal Medicine Hematology & Oncology
DX: N17.9 Acute kidney failure, unspecified (principal); I50.31 Acute diastolic (congestive) heart failure; J18.9 Pneumonia, unspecified organism; I13.0 Hypertensive heart and chronic kidney disease with heart failure and stage 1 through stage 4 chronic kidney disease, or unspecified chronic kidney disease; E87.0 Hyperosmolality and hypernatremia; N18.3 Chronic kidney disease, stage 3 (moderate); I16.0 Hypertensive urgency; I27.2 Other secondary pulmonary hypertension; I11.0 Hypertensive heart disease with heart failure; E11.22 Type 2 diabetes mellitus with diabetic chronic kidney disease; D69.6 Thrombocytopenia, unspecified; D64.9 Anemia, unspecified; E78.5 Hyperlipidemia, unspecified; E78.00 Pure hypercholesterolemia, unspecified; Z91.19 Patient's noncompliance with other medical treatment and regimen
CPT/HCPCS: 36415; 70450; 70486; 71020; 71250; 76770; 80048; 80053; 80061; 80069; 81001; 82550; 82570; 82607; 82728; 82746; 82947; 83036; 83520; 83540; 83550; 83605; 83735; 83880; 84145; 84156; 84165; 84300; 84443; 84484; 84550; 85027; 85045; 86334; 86738; 86850; 86900; 86901; 86920; 87040; 87070; 87205; 87449; 87804; 93005; 93306; G0481; J0360; J0696; J1756; J1815; J1956; J2270; J2405; J7060; P9016; 99285-25

== ENCOUNTER 2017-05-07 14:36 | Emergency (ER) | payer MEDICARE, BC ==
[~2017-05-07] VITALS: Ht 177.8 cm; Wt 72.6 kg
[~2017-05-07 14:36] MED LIST: AMLO10TA4 PO; ASPI-482 PO; CARV25TA PO; CEFP200T PO; FERR-26 PO; INSU100I27 SQ; LISI10TA2 PO; LISI40TA PO; LOSA25TA4 PO; METF500T4 PO; TAMS0.4C97 PO
[2017-05-07 15:38] VITALS: BP 122/60
--- NOTE | 2017-05-07 15:52 | PHYS DOC ---
Past Medical History Past Medical History: Diabetes-Type II, High Cholesterol, Hypertension Past Surgical History: No Surgical History Alcohol Use: None Drug Use: None Adult General Chief Complaint Chief Complaint: MECHANICAL FALL HPI HPI Patient is a 62 year old male presents to the emergency department with acute exacerbation of his chronic right hip pain. Patient states that 2 days ago he was getting out of his truck when his leg gave out and he fell to the ground. He states that he's had increase in his chronic right hip pain since that time. He's had no loss of bowel or bladder control. No loss of function lower extremity. He has been using his chronic use OxyContin without relief of discomfort. He presented to the emergency department today because he felt the pain was worsening and he was unable to [facility] Review of Systems Review of Systems Constitutional: Denies fever or chills [] Eyes: Denies change in visual acuity, redness, or eye pain [] HENT: Denies nasal congestion or sore throat [] Respiratory: Denies cough or shortness of breath [] Cardiovascular: No additional information not addressed in HPI [] GI: Denies abdominal pain, nausea, vomiting, bloody stools or diarrhea [] : Denies dysuria or hematuria [] Musculoskeletal: Right low back, right hip pain. Integument: Denies rash or skin lesions [] Neurologic: Denies headache, focal weakness or sensory changes [] Endocrine: Denies polyuria or polydipsia [] Current Medications Current Medications Current Medications Medications (Trade) Dose Ordered Sig/Jerson Start Time Stop Time Status Last Admin Dose Admin Fentanyl Citrate (Fentanyl 2ml Vial) 50 mcg 1X ONCE 05/07/17 16:00 05/07/17 16:01 DC 05/07/17 16:04 50 MCG Ondansetron HCl (Zofran Odt) 4 mg 1X ONCE 05/07/17 16:00 05/07/17 16:01 DC 05/07/17 16:04 4 MG Allergies Allergies Allergies Coded Allergies Type Severity Reaction Last Updated Verified No Known Drug Allergies 01/01/16 No Physical Exam Physical Exam Constitutional: Well developed, well nourished, no acute distress, non-toxic appearance. [] HENT: Atraumatic, Normocephalic, atraumatic, bilateral external ears normal, oropharynx moist, no oral exudates, nose normal. [] Eyes: PERRLA, EOMI, conjunctiva normal, no discharge. [] Neck: Atraumatic, Normal range of motion, no midline or paracervical tenderness , supple, no stridor. [] Cardiovascular:Heart rate regular rhythm, no murmur [] Lungs & Thorax: Atraumatic, Bilateral breath sounds clear to auscultation him a symmetrical chest wall movement with inspiration and expiration. No tenderness to palpate. [] Abdomen: Atraumatic, Bowel sounds normal, soft, no tenderness, no masses, no pulsatile masses. [] Skin: Warm, dry, no erythema, right hip with a recent meter contusion, right lateral knee with a 4 cm contusion. Back: No tenderness in the lumbar region extending over right sacroiliac crest, no CVA tenderness. [] Extremities: No tenderness to palpate, but does have discomfort with range of motion. no cyanosis, no clubbing, ROM intact, no edema. [] Neurologic: Alert and oriented X 3, normal motor function, normal sensory function, no focal deficits noted. [] Psychologic: Affect normal, judgement normal, mood normal. [] Current Patient Data Vital Signs Vital Signs Date Time Temp Pulse Resp B/P (MAP) Pulse Ox O2 Delivery O2 Flow Rate FiO2 05/07/17 15:38 98.1 72 16 90 Room Air 98.1 EKG EKG [] Radiology/Procedures Radiology/Procedures Chest x-ray and Right hip x-ray reviewed by Dr. Herzog emergency room physician. No acute changes. Course & Med Decision Making Course & Med Decision Making Pertinent Labs and Imaging studies reviewed. (See chart for details) []Patient reports pain relief after fentanyl injection. Will be discharged home in stable condition. Patient was advised to continue home use pain medications. [] Dragon Disclaimer Dragon Disclaimer This electronic medical record was generated, in whole or in part, using a voice recognition dictation system. Departure Departure Impression: Primary Impression: Contusion of right hip Disposition: HOME, SELF-CARE Condition: STABLE Referrals: HARI FREEMAN Jr, MD (PCP) Patient Instructions: Chronic Pain, Contusion Additional Instructions: Follow-up with your primary care provider tomorrow for further evaluation and pain management. Problem Qualifiers Primary Impression: Contusion of right hip Encounter type: initial encounter Qualified Codes: S70.01XA - Contusion of right hip, initial encounter IRWIN HARRISON [employer] May 07, 2017 15:52
[2017-05-07] MEDS ORDERED: fentaNYL PF VIAL 100 MCG/2 ML VIAL IM ONE (16:00)
[2017-05-07] MEDS ORDERED: ONDANSETRON ODT 4 MG TAB.RAPDIS. PO ONE (16:00)
--- NOTE | 2017-05-07 17:00 | RAD ---
Indication trauma. Fall. PA and lateral views of the chest were obtained. Comparison is made to an examination 03/25/2017. The level of inspiratory effort is not quite as good as on the previous exam. The heart and pulmonary vessels are within normal limits. A focal process in the chest is not seen. Significant pleural fluid is not present. There is no pneumothorax. There has not been a significant change relative to the previous exam. IMPRESSION: No acute finding in the chest or significant change compared to the previous exam
--- NOTE | 2017-05-07 17:03 | RAD ---
Indication pain particularly the right hip. An AP view of the pelvis was obtained as well as a targeted AP view of the right hip. No acute bony finding is seen. There are advanced degenerative changes associated with the right hip. The joint space has been obliterated.:. There are sclerotic changes associated with the femoral head and adjacent acetabulum. A lucency, compatible with a degenerative cyst is also noted associated with the acetabulum. IMPRESSION: No acute finding. Advanced degenerative changes associated with the right hip
== END 2017-05-07 17:03 | disposition home or self-care (01) ==
LOC: ER 14:36
DX: S70.01XA Contusion of right hip, initial encounter (principal); E11.9 Type 2 diabetes mellitus without complications; E78.00 Pure hypercholesterolemia, unspecified; I10 Essential (primary) hypertension; G89.29 Other chronic pain; W18.39XA Other fall on same level, initial encounter; Y93.89 Activity, other specified; Y92.89 Other specified places as the place of occurrence of the external cause; Y99.8 Other external cause status
CPT/HCPCS: 71020; 73502; 96372; 99284; J3010; Q0162

== ENCOUNTER 2017-06-19 21:26 | Inpatient (IN) | payer MEDICARE, BC ==
[~2017-06-19] VITALS: Ht 180.3 cm; Wt 69.9 kg
--- NOTE | 2017-06-19 21:37 | PHYS DOC ---
Past Medical History Past Medical History: Diabetes-Type II, High Cholesterol, Hypertension Past Surgical History: No Surgical History Alcohol Use: None Drug Use: None Adult General Chief Complaint Chief Complaint: HYPERTENSION HPI HPI 62-year-old -[place] male with a history of hypertension diabetes CHF now presents the emergency department because his blood pressure is elevated. Patient's daughter looks after him and takes his blood pressure twice a day. Earlier today she took it was very elevated so she took it every hour since and his remained elevated as high as over 200 systolic and over 100 diastolic. Patient has remained asymptomatic. He denies headache visual changes chest pain shortness of breath. Patient states he feels baseline. Specifically he's had no exertional chest pain or changes in his respiratory status at all. Patient states that he is usually compliant with his blood pressure medications and took them this morning but he did not take his evening doses. Review of Systems Review of Systems Constitutional: Denies fever or chills [] Eyes: Denies change in visual acuity, redness, or eye pain [] HENT: Denies nasal congestion or sore throat [] Respiratory: Denies cough or shortness of breath [] Cardiovascular: No additional information not addressed in HPI [] GI: Denies abdominal pain, nausea, vomiting, bloody stools or diarrhea [] : Denies dysuria or hematuria [] Musculoskeletal: Denies back pain or joint pain [] Integument: Denies rash or skin lesions [] Neurologic: Denies headache, focal weakness or sensory changes [] Endocrine: Denies polyuria or polydipsia [] Current Medications Current Medications Current Medications Medications (Trade) Dose Ordered Sig/[facility] Start Time Stop Time Status Last Admin Dose Admin Clonidine HCl (Catapres) 0.1 mg 1X ONCE 06/19/17 23:30 06/19/17 23:31 DC 06/19/17 23:15 0.1 MG Lisinopril (Prinivil) 40 mg 1X ONCE 06/19/17 23:30 06/19/17 23:31 DC 06/19/17 23:16 40 MG Nicardipine HCl 50 mg/Sodium Chloride 270 ml @ 0 mls/hr CONT PRN 06/19/17 23:30 06/19/17 23:40 25 MLS/HR Allergies Allergies Allergies Coded Allergies Type Severity Reaction Last Updated Verified No Known Drug Allergies 01/01/16 No Physical Exam Physical Exam Constitutional: Well developed, well nourished, no acute distress, non-toxic appearance. [] HENT: Normocephalic, atraumatic, bilateral external ears normal, oropharynx moist, no oral exudates, nose normal. [] Eyes: PERRLA, EOMI, conjunctiva normal, no discharge. [] Neck: Normal range of motion, no tenderness, supple, no stridor. [] Cardiovascular:Heart rate regular rhythm, no murmur [] Lungs & Thorax: Bilateral breath sounds clear to auscultation [] Abdomen: Bowel sounds normal, soft, no tenderness, no masses, no pulsatile masses. [] Skin: Warm, dry, no erythema, no rash. [] Back: No tenderness, no CVA tenderness. [] Extremities: No tenderness, no cyanosis, no clubbing, ROM intact, no edema. [] Neurologic: Alert and oriented X 3, normal motor function, normal sensory function, no focal deficits noted. [] Psychologic: Affect normal, judgement normal, mood normal. [] Current Patient Data Vital Signs Vital Signs Date Time Temp Pulse Resp B/P (MAP) Pulse Ox O2 Delivery O2 Flow Rate FiO2 06/19/17 23:16 80 220/103 06/19/17 22:47 24 93 06/19/17 22:30 Room Air 06/19/17 21:33 98.4 98.4 Lab Values Laboratory Tests Test 06/19/17 21:41 White Blood Count 4.2 x10^3/uL (4.0-11.0) Red Blood Count 2.71 x10^6/uL (4.30-5.70) L Hemoglobin 7.5 g/dL (13.0-17.5) L Hematocrit 22.7 % (39.0-53.0) L Mean Corpuscular Volume 84 fL (79-100) Mean Corpuscular Hemoglobin 28 pg (25-35) Mean Corpuscular Hemoglobin Concent 33 g/dL (31-37) Red Cell Distribution Width 15.7 % (11.5-14.5) H Platelet Count 128 x10^3/uL (140-400) L Neutrophils (%) (Auto) 64 % (31-73) Lymphocytes (%) (Auto) 24 % (24-48) Monocytes (%) (Auto) 7 % (0-9) Eosinophils (%) (Auto) 5 % (0-3) H Basophils (%) (Auto) 1 % (0-3) Neutrophils # (Auto) 2.7 x10^3uL (1.8-7.7) Lymphocytes # (Auto) 1.0 x10^3/uL (1.0-4.8) Monocytes # (Auto) 0.3 x10^3/uL (0.0-1.1) Eosinophils # (Auto) 0.2 x10^3/uL (0.0-0.7) Basophils # (Auto) 0.0 x10^3/uL (0.0-0.2) Sodium Level 145 mmol/L (136-145) Potassium Level 4.4 mmol/L (3.5-5.1) Chloride Level 111 mmol/L (98-107) H Carbon Dioxide Level 27 mmol/L (21-32) Anion Gap 7 (6-14) Blood Urea Nitrogen 36 mg/dL (8-26) H Creatinine 2.4 mg/dL (0.7-1.3) H Estimated GFR (Cockcroft-Gault) 33.2 Glucose Level 149 mg/dL (70-99) H Calcium Level 7.7 mg/dL (8.5-10.1) L Troponin I Quantitative < 0.017 ng/mL (0.000-0.055) Laboratory Tests 06/19/17 21:41 Laboratory Tests 06/19/17 21:41 EKG EKG Initial EKG normal sinus rhythm at 76 normal axis no STEMI Repeat EKG at 12:01 AM with normal sinus rhythm at 78 bpm normal axis no STEMI. Nonspecific ST findings no sig change compared with first study, both studies interpreted by me[] Radiology/Procedures Radiology/Procedures Chest x-ray chronic changes no acute disease interpreted by me[] Course & Med Decision Making Course & Med Decision Making Pertinent Labs and Imaging studies reviewed. (See chart for details) Findings consistent with accelerated hypertension however patient asymptomatic. He does have severe anemia with hemoglobin of 7.5 down from 7.9 on March 27. His creatinine is 2.4 today up from 2.1 on March 28. Consistent with some acute renal injury tonight. Clonidine given by mouth initially. On repeat evaluation patient's blood pressure 224/116 so Cardene drip initiated and patient will be admitted to the [facility] case discussed with Dr. Adam Connors hospitalist on-call is aware of history and findings and agrees with inpatient admission to his service. Patient's hotel houseman Dr. Neff will be consulted Critical care 73 minutes [] Dragon Disclaimer Dragon Disclaimer This electronic medical record was generated, in whole or in part, using a voice recognition dictation system. Departure Departure Referrals: HARI FREEMAN Jr, MD (PCP) STACEY MITCHELL MD Jun 19, 2017 21:37
[2017-06-19 22:05] LABS: BASO % 1 % (0-3); EOS % 5 % (0-3); HEMATOCRIT 22.7 % (39.0-53.0); HEMOGLOBIN 7.5 g/dL (13.0-17.5); LYMPH % 24 % (24-48); MEAN CORPUSCULAR HEMOGLOBIN 28 pg (25-35); MEAN CORPUSCULAR HGB CONC 33 g/dL (31-37); MEAN CORPUSCULAR VOLUME 84 fL (79-100); MONO % 7 % (0-9); NEUT % 64 % (31-73); PLATELET COUNT 128 x10^3/uL (140-400); RED BLOOD COUNT 2.71 x10^6/uL (4.30-5.70); RED CELL DISTRIBUTION WIDTH 15.7 % (11.5-14.5); WHITE BLOOD COUNT 4.2 x10^3/uL (4.0-11.0)
[2017-06-19] MEDS ORDERED: cloNIDine HCL 0.1 MG TABLET PO ONE ×2 (22:15→23:30)
[2017-06-19 22:27] LABS: CALCIUM 7.7 mg/dL (8.5-10.1); CREATININE 2.4 mg/dL (0.7-1.3); GFR 33.2; POTASSIUM 4.4 mmol/L (3.5-5.1)
[2017-06-19] MEDS ORDERED: LISINOPRIL 10 MG TABLET PO ONE (23:30)
[2017-06-20] VITALS (16 sets, daily range): BP systolic 118–166; BP diastolic 58–86
[2017-06-20] MEDS ORDERED: INSU100V13 SQ (01:49)
[2017-06-20] MEDS ORDERED: HYDR50TA6 PO ×2 (01:50→04:26)
[2017-06-20] MEDS ORDERED: CITA10TA4 PO (03:48)
[2017-06-20] MEDS ORDERED: LOSA25TA4 PO (03:58)
--- NOTE | 2017-06-20 06:45 | EKG ---
[facility] [address] [place] [address] Test Date: 2017-06-19 Test Time: 21:35:41 Pat Name: ANASTASIIA SALGADO Department: Room: Gender: M Therapist Respiratory: [id number] : 1955 Requested By: STACEY MITCHELL Order Number: [id number] Reading MD: Measurements Intervals [place] Rate: 76 P: 43 AK: 154 QRS: 3 QRSD: 82 T: 58 QT: 384 QTc: 436 Interpretive Statements SINUS RHYTHM LEFT ATRIAL ABNORMALITY RI6.01 Unconfirmed report No previous ECG available for comparison
--- NOTE | 2017-06-20 06:50 | EKG ---
[facility] [address] [place] [address] Test Date: 2017-06-20 Test Time: 00:01:19 Pat Name: ANASTASIIA SALGADO Department: Room: 246 1 Gender: M Dag Sprayer: LEONIE: 1955 Requested By: CATRACHO CHIU Order Number: [id number] Reading MD: Measurements Intervals [place] Rate: 78 P: 39 ID: [id number] QRS: -5 QRSD: 84 T: 60 QT: 392 QTc: 451 Interpretive Statements SINUS RHYTHM LEFT ATRIAL ABNORMALITY LEFTWARD AXIS RI6.01 Unconfirmed report No previous ECG available for comparison
--- NOTE | 2017-06-20 07:52 | RAD ---
Portable chest, 06/19/2017: History: Lightheadedness, hypertension, diabetes Comparison is made to a study from 05/07/2017. The heart size and pulmonary vascularity are within normal limits. There is calcific plaquing of the aorta. No pulmonary infiltrate is seen. There is no evidence of pleural fluid. IMPRESSION: No acute cardiopulmonary abnormality is detected.
--- NOTE | 2017-06-20 11:06 | PDOC2 ---
CARDIAC CONSULT DATE OF CONSULT Date of Consult DATE: 06/20/17 TIME: 11:00 REASON FOR CONSULT Reason for Consult: Uncontrolled Hypertension REFERRING PHYSICIAN Referring Physician: Dr. Vargas SOURCE Source: Chart review, Patient HISTORY OF PRESENT ILLNESS HISTORY OF PRESENT ILLNESS This is a 62 yo male who presented secondary to elevated blood pressure. Patient reports he was feeling "draggy" at home. C/o VILLALOBOS. Had daughter check BP; was significantly elevated, so he came into the ED for further evaluation and treatment. Patient denies any chest pain, palpitations, dizziness, diaphoresis, PUCKETT, orthopnea, or nausea/vomiting. Reports ongoing LE edema. Was recently started on diuretic therapy, which did not provide any significant relief. Patient reports compliance with medications. H/o cardiac cath approximately 20 years ago without intervention. Recent renal duplex without evidence of SE. PAST MEDICAL HISTORY Cardiovascular: HTN, Hyperlipidemia Pulmonary: No pertinent hx GI: Diverticulosis, GERD Heme/Onc: Anemia NOS Hepatobiliary: No pertinent hx Psych: Anxiety, Depression Musculoskeletal: Osteoarthritis Renal/: Chronic renal insuff, Benign prostatic enlarg. Endocrine: Diabetes PAST SURGICAL HISTORY Past Surgical History: No pertinent history FAMILY HISTORY Family History: Diabetes, Hypertension SOCIAL HISTORY Smoke: No ALCOHOL: none Drugs: None Lives: with Family CURRENT MEDICATIONS CURRENT MEDICATIONS Current Medications Medications (Trade) Dose Ordered Sig/Jerson Route PRN Reason Start Time Stop Time Status Last Admin Dose Admin Clonidine HCl (Catapres) 0.1 mg 1X ONCE PO 06/19/17 22:15 06/19/17 22:16 DC 06/19/17 21:57 Clonidine HCl (Catapres) 0.1 mg 1X ONCE PO 06/19/17 23:30 06/19/17 23:31 DC 06/19/17 23:15 Lisinopril (Prinivil) 40 mg 1X ONCE PO 06/19/17 23:30 06/19/17 23:31 DC 06/19/17 23:16 Nicardipine HCl 50 mg/Sodium Chloride 270 ml @ 0 mls/hr CONT PRN IV SEE I/O RECORD 06/19/17 23:30 06/19/17 23:54 ALLERGIES ALLERGIES: Coded Allergies: No Known Drug Allergies (Unverified , 01/01/16) ROS Review of System 14 point ROS conducted with pertinent positives noted above in HPI. PHYSICAL EXAM General: Alert, Oriented X3, Cooperative, No acute distress HEENT: Atraumatic, Mucous membr. moist/pink Lungs: Clear to auscultation, Normal air movement Heart: Regular rate, Normal S1, Normal S2, No murmurs Abdomen: Soft, No tenderness Extremities: Normal pulses, Other (trace bilateral LE edema ) Skin: No breakdown, No significant lesion Neuro: Normal speech, Sensation intact Psych/Mental Status: Mental status NL, Mood NL MUSCULOSKELETAL: No joint tenderness VITALS VITALS Vital Signs Date Time Temp Pulse Resp B/P (MAP) Pulse Ox O2 Delivery O2 Flow Rate FiO2 06/20/17 10:23 98.5 79 18 140/70 (93) Room Air 98.5 06/20/17 07:50 93 LABS Lab: Laboratory Tests Test 06/19/17 21:41 06/20/17 08:15 White Blood Count 4.2 x10^3/uL (4.0-11.0) Red Blood Count 2.71 x10^6/uL (4.30-5.70) Hemoglobin 7.5 g/dL (13.0-17.5) Hematocrit 22.7 % (39.0-53.0) Mean Corpuscular Volume 84 fL (79-100) Mean Corpuscular Hemoglobin 28 pg (25-35) Mean Corpuscular Hemoglobin Concent 33 g/dL (31-37) Red Cell Distribution Width 15.7 % (11.5-14.5) Platelet Count 128 x10^3/uL (140-400) Neutrophils (%) (Auto) 64 % (31-73) Lymphocytes (%) (Auto) 24 % (24-48) Monocytes (%) (Auto) 7 % (0-9) Eosinophils (%) (Auto) 5 % (0-3) Basophils (%) (Auto) 1 % (0-3) Neutrophils # (Auto) 2.7 x10^3uL (1.8-7.7) Lymphocytes # (Auto) 1.0 x10^3/uL (1.0-4.8) Monocytes # (Auto) 0.3 x10^3/uL (0.0-1.1) Eosinophils # (Auto) 0.2 x10^3/uL (0.0-0.7) Basophils # (Auto) 0.0 x10^3/uL (0.0-0.2) Sodium Level 145 mmol/L (136-145) Potassium Level 4.4 mmol/L (3.5-5.1) Chloride Level 111 mmol/L (98-107) Carbon Dioxide Level 27 mmol/L (21-32) Anion Gap 7 (6-14) Blood Urea Nitrogen 36 mg/dL (8-26) Creatinine 2.4 mg/dL (0.7-1.3) Estimated GFR (Cockcroft-Gault) 33.2 Glucose Level 149 mg/dL (70-99) Calcium Level 7.7 mg/dL (8.5-10.1) Troponin I Quantitative < 0.017 ng/mL (0.000-0.055) Glucose (Fingerstick) 145 mg/dL (70-99) ECHOCARDIOGRAM ECHOCARDIOGRAM <Conclusion> There is moderate concentric left ventricular hypertrophy. Left ventricle systolic function is normal. The Ejection Fraction is 65-70%. There is normal LV segmental wall motion. Doppler and Color Flow revealed mild to moderate tricuspid regurgitation. The PA pressure was estimated at 49 mmHg. DATE: 12/29/16 1145 ASSESSMENT/PLAN ASSESSMENT/PLAN 1. Malignant hypertension 2. Hyperlipidemia 3. DOMINIQUE on CKD 4. Diabetes Recommendations Resume home antiHTN therapy. Titrate off Cardene as able. Hydralazine IV PRN. Stop losartan as patient is on lisinopril Monitor to assess need for therapy titration. Consider adding scheduled hydralazine Supportive care Will need outpatient follow up for BP monitoring Problems: NANDA TREVINO APRN Jun 20, 2017 11:06
[2017-06-20] MEDS ORDERED: amLODIPine BESYLATE 10 MG TABLET PO SCH (11:30)
[2017-06-20] MEDS ORDERED: LISINOPRIL 40 MG TABLET. PO SCH (11:30)
[2017-06-20] MEDS ORDERED: hydroCHLOROthiazide 25 MG TABLET PO SCH (12:00)
[2017-06-20] MEDS ORDERED: ASPIRIN ENTERIC COATED 81 MG TABLET.DR. PO SCH (12:00)
[2017-06-20] MEDS ORDERED: TAMSULOSIN 0.4 MG CAP.ER.24H. PO SCH (12:00)
[2017-06-20] MEDS ORDERED: CITALOPRAM 10 MG TABLET. PO SCH (12:00)
[2017-06-20] MEDS ORDERED: FERROUS SULFATE 325 MG TABLET. PO SCH (12:00)
[2017-06-20] MEDS ORDERED: LOSARTAN POTASSIUM 25 MG TABLET. PO SCH (12:00)
[2017-06-20] MEDS: CARVEDILOL 12.5 MG TABLET. PO SCH ×2 (13:17→16:41)
[2017-06-20 14:03] LABS: CHOLESTEROL/HDL RATIO 2.7
[2017-06-20] MEDS ORDERED: NON FORMULARY ITEM (Cefpodoxime Proxetil 1 TAB) PO SCH (21:00)
[2017-06-20] MEDS ORDERED: INSULIN DETEMIR 300 UNITS/3 ML INSULN.PEN. SQ SCH ×2 (21:00)
--- NOTE | 2017-06-20 23:26 | SSS ---
ADMIT DATE: 06/20/2017 CHIEF COMPLAINT: Accelerated hypertension. HISTORY OF PRESENT ILLNESS: The patient is a pleasant 62-year-old male who I believe on others medications, basically presented with pressures in the 200s. We admitted him overnight for observation. He is on a Cardizem drip. This morning, his pressure is 126/60. We plan to discharge this afternoon once we get him off the Cardizem drip. PAST MEDICAL HISTORY: Chronic renal insufficiency, hypertension and noncompliance. ALLERGIES: None. FAMILY HISTORY: Diabetes. SOCIAL HISTORY: Does not drink, smoke or take drugs. MEDICATIONS: Reviewed. REVIEW OF SYSTEMS: GENERAL: No history of weight change, weakness or fevers. SKIN: No bruising, hair changes or rashes. EYES: No blurred, double or loss of vision. NOSE AND THROAT: No history of nosebleeds, hoarseness or sore throat. HEART: No history of palpitations, chest pain or shortness of breath on exertion. LUNGS: Denies cough, hemoptysis, wheezing or shortness of breath. GASTROINTESTINAL: Denies changes in appetite, nausea, vomiting, diarrhea or constipation. GENITOURINARY: No history of frequency, urgency, hesitancy or nocturia. NEUROLOGIC: Denies history of numbness, tingling, tremor or weakness. PSYCHIATRIC: No history of panic, anxiety or depression. ENDOCRINE: No history of heat or cold intolerance, polyuria or polydipsia. EXTREMITIES: Denies muscle weakness, joint pain, pain on walking or stiffness. PHYSICAL EXAMINATION: VITAL SIGNS: Temperature afebrile, pulse 92, respirations 18 and blood pressure 126/47. GENERAL: He is alert and cooperative. His is present. HEART: Normal S1 and S2. LUNGS: Clear. ABDOMEN: Soft. EXTREMITIES: No edema. SKIN: No rashes. PSYCHIATRIC: He is stable. VASCULAR: Good capillary refill. ENDOCRINE: No thyromegaly. LYMPHATICS: No cervical nodes. HEMATOPOIETIC: No bruising. ASSESSMENT AND PLAN: Resolving accelerated hypertension with hypertensive emergency and [id number] renal failure. The patient has been admitted. We have got his pressures back under control. We are going to discharge with close outpatient followup. DISPOSITION: Home. ACTIVITY: As tolerated. DIET: Low sodium. MEDICATIONS: Please see the MARD. TOTAL TIME: Thirty-two minutes. NIAL Clay CHIU DO DR: Tiago JOB#: [id number] / [id number]
--- NOTE | 2017-06-21 10:41 | RAD ---
APPROVED REPORT Patient Location : IN-PATIENT Indications Lower Extremity Edema : Bilateral Findings Limited grayscale images of the bilateral greater and lesser saphenous veins do not show any evidence of thrombus. Spectral Doppler images do not reveal any evidence of reflux. The right great saphenous vein measures 5.7 mm and the left great saphenous vein measures 5.3 mm. The bilateral lesser saphenous veins also did not show any evidence of reflux. Critical Notification Critical Value: No <Conclusion> 1. Negative for reflux in the bilateral greater and lesser saphenous veins.
== END 2017-06-20 19:26 | disposition home or self-care (01) | DRG 305 ==
LOC: ER 21:26 → 2 SOUTH 23:28
PROVIDERS: ADMIT Internal Medicine; ATTEND Internal Medicine
DX: I16.1 Hypertensive emergency (principal); N17.9 Acute kidney failure, unspecified; E11.22 Type 2 diabetes mellitus with diabetic chronic kidney disease; I50.9 Heart failure, unspecified; I13.0 Hypertensive heart and chronic kidney disease with heart failure and stage 1 through stage 4 chronic kidney disease, or unspecified chronic kidney disease; E78.5 Hyperlipidemia, unspecified; E78.00 Pure hypercholesterolemia, unspecified; K21.9 Gastro-esophageal reflux disease without esophagitis; N18.9 Chronic kidney disease, unspecified; F32.9 Major depressive disorder, single episode, unspecified; N40.0 Benign prostatic hyperplasia without lower urinary tract symptoms; K57.90 Diverticulosis of intestine, part unspecified, without perforation or abscess without bleeding; F41.9 Anxiety disorder, unspecified; M19.90 Unspecified osteoarthritis, unspecified site; Z91.19 Patient's noncompliance with other medical treatment and regimen; Z82.49 Family history of ischemic heart disease and other diseases of the circulatory system; Z83.3 Family history of diabetes mellitus
CPT/HCPCS: 36415; 71010; 80048; 80061; 82962; 84484; 85025; 93005; 93970; 96365; J1815; J7050; 99291-25; J7030

== ENCOUNTER → 2017-06-28 | Outpatient (CLI) | payer BC, MEDICARE ==
[2017-06-20 18:38] VITALS: BP 149/85
[~2017-06-28] MED LIST changes: +CITA10TA4 PO; +HYDR50TA6 PO; +INSU100V13 SQ
[2017-06-28 13:11] LABS: ALBUMIN 2.9 g/dL (3.4-5.0); CALCIUM 8.2 mg/dL (8.5-10.1); CREATININE 2.5 mg/dL (0.7-1.3); GFR 31.7; POTASSIUM 4.1 mmol/L (3.5-5.1)
[2017-06-28 13:16] LABS: BILIRUBIN,URINE NEGATIVE (NEG); GLUCOSE,URINE NEGATIVE (NEG); NITRITE,URINE NEGATIVE (NEG); PH,URINE 6.5; PROTEIN,URINE >=300 mg/dL (NEG-TRACE); UROBILINOGEN,URINE 0.2 mg/dL (0.2 mg/dL)
[2017-06-28 13:23] LABS: BASO % 1 % (0-3); EOS % 4 % (0-3); HEMOGLOBIN 7.6 g/dL (13.0-17.5); LYMPH # 0.8 x10^3/uL (1.0-4.8); LYMPH % 18 % (24-48); MEAN CORPUSCULAR HEMOGLOBIN 28 pg (25-35); MEAN CORPUSCULAR HGB CONC 33 g/dL (31-37); MEAN CORPUSCULAR VOLUME 84 fL (79-100); MONO % 7 % (0-9); NEUT % 70 % (31-73); PLATELET COUNT 130 x10^3/uL (140-400); RED BLOOD COUNT 2.75 x10^6/uL (4.30-5.70); WHITE BLOOD COUNT 4.2 x10^3/uL (4.0-11.0)
[2017-06-28 13:40] LABS: INR 1.1 (0.8-1.1); PROTHROMBIN TIME PATIENT 13.6 SEC (11.7-14.0)
[2017-06-28 13:44] LABS: BACTERIA,URINE FEW /HPF (0-FEW); WBC,URINE OCC /HPF (0-4)
== END | disposition home or self-care (01) ==
LOC: SURGPAT 11:59
PROVIDERS: ATTEND Orthopaedic Surgery
DX: Z01.818 Encounter for other preprocedural examination (principal); M16.11 Unilateral primary osteoarthritis, right hip; Z96.641 Presence of right artificial hip joint
CPT/HCPCS: 36415; 80048; 81001; 82040; 83036; 85025; 85610; 85651; 85730; 87641

== ENCOUNTER 2017-07-28 07:08 | Outpatient (CLI) | payer BC ==
[~2017-07-28] VITALS: Ht 180.3 cm; Wt 74.8 kg
[2017-07-28] VITALS (10 sets, daily range): BP systolic 146–193; BP diastolic 82–97
[2017-07-28 07:47] LABS: BASO % 1 % (0-3); EOS % 6 % (0-3); HEMATOCRIT 22.6 % (39.0-53.0); HEMOGLOBIN 7.4 g/dL (13.0-17.5); LYMPH # 0.8 x10^3/uL (1.0-4.8); LYMPH % 24 % (24-48); MEAN CORPUSCULAR HEMOGLOBIN 28 pg (25-35); MEAN CORPUSCULAR HGB CONC 33 g/dL (31-37); MEAN CORPUSCULAR VOLUME 85 fL (79-100); MONO % 8 % (0-9); NEUT % 61 % (31-73); PLATELET COUNT 131 x10^3/uL (140-400); RED BLOOD COUNT 2.65 x10^6/uL (4.30-5.70); RED CELL DISTRIBUTION WIDTH 16.4 % (11.5-14.5); WHITE BLOOD COUNT 3.4 x10^3/uL (4.0-11.0)
[2017-07-28 07:56] LABS: INR 1.1 (0.8-1.1); PROTHROMBIN TIME PATIENT 13.3 SEC (11.7-14.0)
[2017-07-28] MEDS ORDERED: MIDAZOLAM HCL/PF 2 MG/2 ML VIAL. ONE (07:56)
[2017-07-28] MEDS ORDERED: fentaNYL PF VIAL 100 MCG/2 ML VIAL ONE (07:56)
[2017-07-28] MEDS ORDERED: LIDOCAINE 1% / SOD BICARB 8.4% 20 ML VIAL. IJ ONE ×2 (07:58→08:30)
[2017-07-28] MEDS ORDERED: fentaNYL PF VIAL 100 MCG/2 ML VIAL IV ONE (08:30)
[2017-07-28] MEDS ORDERED: MIDAZOLAM HCL/PF 2 MG/2 ML VIAL. IV ONE (08:30)
--- NOTE | 2017-07-28 11:22 | RAD ---
CT-guided bone marrow biopsy. 07/28/2017 11:17 AM Indication: PANCYTOPENIA Discussion: The risks and benefits of the procedure, including but not limited to, bleeding and infection were discussed patient. Informed consent was obtained. The patient was brought to the CT scanner and placed in the prone position. A timeout procedure was performed. Automatic Winder Operator CT imaging of the pelvis demonstrated left ilium amenable to bone marrow biopsy. The overlying soft tissues were prepped and draped using maximum sterile barrier technique. 1% lidocaine without epinephrine was administered for local anesthesia. Under intermittent CT guidance, an OncControl needle was advanced into the bone marrow of the left iliac crest. 2 Aspirates and 1 core biopsy samples were obtained. Samples were delivered to pathology was present at the time of procedure. The needle was removed and manual pressure held to achieve hemostasis. No immediate complications were identified. The procedure was performed under conscious sedation including continuous cardiopulmonary monitoring via dedicated sedation nurse. Sedation time: 20 minutes Impression: Successful CT-guided bone marrow biopsy of the left iliac crest . PQRS Compliance Statement: One or more of the following individualized dose reduction techniques were utilized for this examination: 1. Automated exposure control 2. Adjustment of the mA and/or kV according to patient size 3. Use of iterative reconstruction technique
== END 2017-07-28 10:15 | disposition home or self-care (01) ==
LOC: INTRAD 07:08
PROVIDERS: ATTEND Internal Medicine Hematology & Oncology
DX: D61.818 Other pancytopenia (principal); I11.0 Hypertensive heart disease with heart failure; I50.9 Heart failure, unspecified; K21.9 Gastro-esophageal reflux disease without esophagitis; E11.9 Type 2 diabetes mellitus without complications; Z86.39 Personal history of other endocrine, nutritional and metabolic disease; Z86.69 Personal history of other diseases of the nervous system and sense organs; Z87.39 Personal history of other diseases of the musculoskeletal system and connective tissue
CPT/HCPCS: 36415; 38221; 77012; 85025; 85610; 88184; 88185; 88237; 99152; G0364; J2250; J3010